=== PATIENT | female | born 1980 | race Caucasian/White ===

== ENCOUNTER 2018-01-12 02:58 | Emergency (ER) | payer OTHER ==
--- NOTE | 2018-01-12 03:28 | ERPHSYRPT ---
- History of Present Illness Time Seen by Provider: 01/12/18 03:27 Historian: patient Exam Limitations: no limitations Patient Subjective Stated Complaint: Upper abdominal pain that began in [place]. Triage Nursing Assessment: Pt presents to the ED with complaints of upper abdominal pain. Pt states she had endoscopy on and states pain has been constant since procedure. No distress noted, skin PWD. Hx of gastroporisis and pyloric stenosis. Physician History: 37-year-old female came to the emergency room with complaining of epigastric abdominal pain. Vision has a long history of gastroesophageal reflux disease as well as gastroparesis and pyloric stenosis for which patient underwent esophageal duodenoscopy on , 2 days ago. Since then. Patient has off and on epigastric abdominal pain. Patient denies any fever, chills, nausea, vomiting. She denies any abdominal distention. Patient has a regular bowel movement. Timing/Duration: day(s) (2 days ago) Quality: burning Abdominal Pain Onset Location: epigastric Pain Radiation: no radiation Severity of Pain-Max: mild Severity of Pain-Current: mild Modifying Factors: Improves With: nothing Associated Symptoms: denies symptoms Allergies/Adverse Reactions: codeine Allergy (Intermediate, Verified 01/12/18 03:14) Hives meperidine [From Demerol] Allergy (Intermediate, Verified 01/12/18 03:14) morphine Allergy (Intermediate, Verified 01/12/18 03:14) Hives Home Medications: Hydrocodone/Acetaminophen [[place] 5-325 Tablet] 1 tab PO Q6H PRN 01/12/18 [ History] Linaclotide [Linzess] 290 mcg PO DAILY 01/12/18 [History] Lipase/Protease/Amylase [Francesca Mcmillan 24,000 Units Capsule] 2 cap PO TID 01/12/18 [ History] Ondansetron HCl [Ondansetron HCl] 4 mg PO Q8H PRN 01/12/18 [History] PANTOPRAZOLE 40 mg Tablet [Protonix 40MG Tablet] 40 mg PO QAM 01/12/18 [ History] Ranitidine HCl [Zantac] 150 mg PO BID 01/12/18 [History] Sucralfate 1 gm [Carafate 1 GM] 1 g PO QID 01/12/18 [History] Hx Tetanus, Diphtheria Vaccination/Date Given: Yes Hx Influenza Vaccination/Date Given: Yes Hx Pneumococcal Vaccination/Date Given: No Immunizations Up to Date: Yes - Review of Systems Constitutional: No Fever, No Chills Eyes: No Symptoms Ears, Nose, & Throat: No Symptoms Respiratory: No Cough, No Dyspnea Cardiac: No Chest Pain, No Edema, No Syncope Abdominal/Gastrointestinal: Abdominal Pain, No Nausea, No Vomiting, No Diarrhea Genitourinary Symptoms: No Dysuria Musculoskeletal: No Back Pain, No Neck Pain Skin: No Rash Neurological: No Dizziness, No Focal Weakness, No Sensory Changes Psychological: No Symptoms Endocrine: No Symptoms All Other Systems: Reviewed and Negative - Past Medical History Pertinent Past Medical History: Yes Neurological History: No Pertinent History ENT History: No Pertinent History Endocrine Medical History: No Pertinent History - Past Surgical History Past Surgical History: Yes Neuro Surgical History: No Pertinent History Cardiac: No Pertinent History Respiratory: No Pertinent History Gastrointestinal: Appendectomy Genitourinary: No Pertinent History Musculoskeletal: No Pertinent History Female Surgical History: Hysterectomy Other Surgical History: Gastroporisis, pyloric stenosis. - Social History Smoking Status: Current every day smoker How long have you smoked: 20years Exposure to second hand smoke: Yes Drug Use: none Patient Lives Alone: No - Female History Hx Now: No - Nursing Vital Signs Nursing Vital Signs: Initial Vital Signs Temperature 98.0 F 01/12/18 03:06 Pulse Rate 66 01/12/18 03:06 Respiratory Rate 18 01/12/18 03:06 Blood Pressure 136/66 01/12/18 03:06 O2 Sat by Pulse Oximetry 98 01/12/18 03:06 Pain Scale Pain Intensity 10 - Physical Exam General Appearance: no apparent distress, alert Eye Exam: PERRL/EOMI, eyes nml inspection Ears, Nose, Throat Exam: normal ENT inspection, pharynx normal, moist mucous membranes Neck Exam: normal inspection, non-tender, supple, full range of motion Respiratory Exam: normal breath sounds, lungs clear, No respiratory distress Cardiovascular Exam: regular rate/rhythm, normal heart sounds Gastrointestinal/Abdomen Exam: soft, No tenderness, No mass Back Exam: normal inspection, normal range of motion, No CVA tenderness, No vertebral tenderness Extremity Exam: normal inspection, normal range of motion, pelvis stable Neurologic Exam: alert, oriented x 3, cooperative, normal mood/affect, nml cerebellar function, sensation nml, No motor deficits Skin Exam: normal color, warm, dry SpO2: 98 Oxygen Delivery: Room Air - Course Nursing assessment & vital signs reviewed: Yes Ordered Tests: Medication Summary Discontinued Medications Generic Name Dose Route Start Last Admin Trade Name Nick PRN Reason Stop Dose Admin Famotidine 20 mg 01/12/18 03:34 01/12/18 03:39 Pepcid 20 Mg Vial IV 01/12/18 03:35 20 mg STAT ONE Administration Famotidine Confirm 01/12/18 03:37 Pepcid 20 Mg Vial Administered 01/12/18 03:38 Dose 20 mg IV .STK-MED ONE Sodium Chloride 500 mls @ 999 mls/hr 01/12/18 03:34 01/12/18 03:39 Sodium Chloride 0.9% 1000 Ml IV 01/12/18 04:04 999 mls/hr .Q31M STA Administration Sodium Chloride Confirm 01/12/18 03:37 Sodium Chloride 0.9% 1000 Ml Administered 01/12/18 03:38 Dose 1,000 mls @ ud .ROUTE .STK-MED ONE Metoclopramide HCl 10 mg 01/12/18 03:34 01/12/18 03:39 Reglan 10 Mg/2 Ml IV 01/12/18 03:35 10 mg STAT ONE Administration Metoclopramide HCl Confirm 01/12/18 03:36 Reglan 10 Mg/2 Ml Administered 01/12/18 03:37 Dose 10 mg .ROUTE .STK-MED ONE - Progress Progress: improved Counseled pt/family regarding: diagnosis, need for follow-up - Departure Time of Disposition: 04:12 Departure Disposition: Home Clinical Impression: Gastroparalysis Gastro-esophageal reflux Qualifiers: Esophagitis presence: without esophagitis Qualified Code(s): K21.9 - Gastro- esophageal reflux disease without esophagitis Condition: Stable Critical Care Time: No Referrals: PENNY LYNN MD [Primary Care Provider] - Instructions: Acute Abdomen (Belly Pain) Additional Instructions: ABDOMINAL PAIN 1. There are several different causes for abdominal pain, some of which may not be able to be identified on initial examination. 2. The important thing to remember is that bodily functions can change in a short period of time. If you notice any of the following symptoms, return to the emergency department or consult your doctor immediately: A. Worsening pain or no improvement in the next 12 hours. B. Increasing, severe abdominal pain C. Blood in stool D. Black stools E. Persistent vomiting F. Fever or chills or other symptoms MARYBETH DELGADO was seen on 01/12/18 n the Emergency Room. At that time you were treated for an emergent condition, during your visit Laboratory, Radiology and/ or other procedures may have been ordered. It is very important that you follow- up with your Primary Care Physician PENNY LYNN V within the next 24-48 hours to review your Emergency Room visit and the final results of testing that was ordered. Some test results such as Urine Cultures, Blood Cultures, and other cultures if ordered will not be finalized for 24-48 hours. If you do not have a Primary Care Provider please call the medical records department at [phone] to obtain a copy of your results or you may sign into our patient portal to obtain these results by visiting us @ [email or web address] and completing the following steps: 1. Click on the Patient Portal link 2. Click the Patient Self Enrollment Link to complete the enrollment form and entering your 3. Once the enrollment form is completed you will receive an email with a temporary ID and password at the email address you provided. 4. Next choose a user name and password. Your user name must be at least 4 characters long and your password must be at least 4 characters long. 5. Choose a security question from the list and provide your answer to the question. If you already have signed into the Health Portal you may access your Health Care Information 13/05 by the following steps: 1. Login to our website @ [email or web address] 2. Enter your original user name and password. FAQS The [facility] Health Portal is an online tool that contains your Lab Results, Radiology Reports, Visit History, Discharge Instructions and Health Summary Lab and Radiology Results will not be available for 72 hours on the portal. The Portal is a secure site, passwords are encryted and URLs are re-written so they cannot be copied and pasted. You and authorized family members are the only ones who can access your Portal. Also there is a timeout feature that protects your information if you leave the Portal page open. If you have technical difficulty please use the Contact Us link on the page this will allow you to submit any questions you have regarding the Portal or you may contact the Medical Record Department at [phone]. Prescriptions: Famotidine 20 mg [Pepcid 20 MG] 20 mg PO BID #60 tablet Metoclopramide HCl [Reglan] 5 mg PO AC #30 tablet
[2018-01-12] MEDS ORDERED: Reglan 10 MG/2 ML IV ONE (03:34)
[2018-01-12] MEDS ORDERED: Pepcid 20 MG VIAL IV ONE ×2 (03:34→03:37)
[2018-01-12] MEDS ORDERED: Reglan 10 MG/2 ML ONE (03:36)
[2018-01-12] MEDS ORDERED: Sodium Chloride 0.9% 1000 ML 1,000 ML ONE (03:37)
[2018-01-12 04:27] VITALS: BP 109/63; PULSE 68; O2SAT 100
== END 2018-01-12 04:28 | disposition home or self-care (01) ==
LOC: ED 02:58
DX: K31.84 Gastroparesis (principal); K21.9 Gastro-esophageal reflux disease without esophagitis; Z79.899 Other long term (current) drug therapy
CPT/HCPCS: 36000; 96360; 96374; 96375; 99284

== ENCOUNTER 2018-08-23 15:56 | Emergency (ER) | payer OTHER ==
--- NOTE | 2018-08-23 16:44 | ERPHSYRPT ---
- History of Present Illness Time Seen by Provider: 08/23/18 16:30 Historian: patient Exam Limitations: no limitations Patient Subjective Stated Complaint: Pt states "I have had this for about a week now. I am dizzy, my chest hurt, I am having palpitations. I saw Dr. Azul yesterday and he said I had an abnormal EKG and that he needed to do more tests. I have gastroporesis and he also thinks that might have worked its way up." Triage Nursing Assessment: Pt alert and oriented X 3, skin pwd. Pt ambulates with an upright steady gait, able to speak in clear full sentences. PT in no apparent respiratory distress. Pt has pain pump implanted in left abdomen. Physician History: The patient is a 38-year-old female with a friend with multiple complaints. She has chronic abdominal pain. She has chronic nausea and vomiting. She has chronic pancreatitis. One week ago she became dizzy. 2 days ago she had intermittent palpitations that made her feel like her heart was racing and jumping out of her chest. She saw her stable manager yesterday, Dr. Mcnulty. Dr. Mcnulty told her that she had an abnormal EKG and wanted to do more studies on her. She had numerous abdominal surgeries last year. She has a past medical history of pancreatitis, gastroparesis, abdominal Dilaudid pain pump, chronic vomiting, cholecystectomy, appendectomy, hysterectomy. Timing/Duration: day(s) (2) Activities at Onset: none Quality: aching Location: substernal Chest Pain Radiation: no radiation Severity of Pain-Max: moderate Severity of Pain-Current: moderate Modifying Factors: Improves With: nothing Associated Symptoms: nausea, vomiting, abdominal pain, dizziness Prior Chest Pain/Cardiac Workup: no prior chest pain, recently seen/treated Nitro Today/Relief: no nitro taken today Aspirin Treatment Today: no aspirin today Allergies/Adverse Reactions: codeine Allergy (Intermediate, Verified 01/12/18 03:14) Hives meperidine [From Demerol] Allergy (Intermediate, Verified 01/12/18 03:14) morphine Allergy (Intermediate, Verified 01/12/18 03:14) Hives Home Medications: Lipase/Protease/Amylase [Francesca Mcmillan 24,000 Units Capsule] 1 cap PO DAILY 08/23/18 [History] Paroxetine HCl 30 mg PO DAILY 08/23/18 [History] Ranitidine HCl [Zantac] 150 mg PO DAILY 08/23/18 [History] Hx Tetanus, Diphtheria Vaccination/Date Given: Yes Hx Influenza Vaccination/Date Given: No Hx Pneumococcal Vaccination/Date Given: No Immunizations Up to Date: Yes - Review of Systems Constitutional: No Fever, No Chills Eyes: No Symptoms Ears, Nose, & Throat: No Symptoms Respiratory: No Cough, No Dyspnea Cardiac: Chest Pain, Palpitations, No Edema, No Syncope Abdominal/Gastrointestinal: Abdominal Pain, Nausea, Vomiting, No Diarrhea Genitourinary Symptoms: Other (anuria), No Dysuria Musculoskeletal: No Back Pain, No Neck Pain Skin: No Rash Neurological: No Dizziness, No Focal Weakness, No Sensory Changes Psychological: No Symptoms Endocrine: No Symptoms Hematologic/Lymphatic: No Symptoms Immunological/Allergic: No Symptoms All Other Systems: Reviewed and Negative - Past Medical History Pertinent Past Medical History: Yes Neurological History: No Pertinent History ENT History: No Pertinent History Endocrine Medical History: No Pertinent History Other Medical History: stress test. CAD - Past Surgical History Past Surgical History: Yes Neuro Surgical History: No Pertinent History Cardiac: No Pertinent History Respiratory: No Pertinent History Gastrointestinal: Appendectomy Genitourinary: No Pertinent History Musculoskeletal: No Pertinent History Female Surgical History: Hysterectomy Other Surgical History: Gastroporisis, pyloric stenosis. pain pump implant. esophageal stretch - Social History Smoking Status: Current every day smoker How long have you smoked: years Exposure to second hand smoke: Yes Drug Use: none Patient Lives Alone: No - Female History Hx Last Menstrual Period: complete hysterectomy Hx Now: No - Nursing Vital Signs Nursing Vital Signs: Initial Vital Signs Temperature 98.5 F 08/23/18 16:03 Pulse Rate 68 08/23/18 16:03 Respiratory Rate 18 08/23/18 16:03 Blood Pressure 124/61 08/23/18 16:03 O2 Sat by Pulse Oximetry 100 08/23/18 16:03 Pain Scale Pain Intensity 8 - Physical Exam General Appearance: mild distress Eye Exam: PERRL/EOMI, eyes nml inspection Ears, Nose, Throat Exam: normal ENT inspection, moist mucous membranes Neck Exam: normal inspection, non-tender, supple, full range of motion Respiratory Exam: normal breath sounds, lungs clear, No respiratory distress Cardiovascular Exam: regular rate/rhythm, normal heart sounds Gastrointestinal/Abdomen Exam: tenderness Pelvic Exam: not done Rectal Exam: not done Back Exam: normal inspection, No CVA tenderness, No vertebral tenderness Extremity Exam: normal inspection, normal range of motion Neurologic Exam: alert, oriented x 3, cooperative, normal mood/affect, sensation nml, No motor deficits Skin Exam: normal color, warm, dry SpO2 Interpretation: normal SpO2: 100 Oxygen Delivery: Room Air - Course EKG Interpreted by Me: RATE, Sinus Rhythm, NORMAL AXIS, NORMAL INTERVALS, NORMAL QRS, Other (inverted T waves in V1, V2, V3.) - Radiology Exams Chest X-ray Interpretation: Interpreted by me, Negative (comp 2V chest 01/14/18.) Ordered Tests: Active Orders 24 hr Category Date Time Status Tube Mounter STAT Care 08/23/18 16:53 Active EKG-ER Only STAT Care 08/23/18 16:52 Active IV Insertion STAT Care 08/23/18 16:52 Active Pulse Oximetry (ED) STAT Care 08/23/18 16:52 Active CHEST 2 VIEWS (PA AND LAT) Stat Exams 08/23/18 16:52 Completed AMYLASE Stat Lab 08/23/18 17:00 Completed CBC W DIFF Stat Lab 08/23/18 17:00 Completed CMP Stat Lab 08/23/18 17:00 Completed D-DIMER QUANTITATION Stat Lab 08/23/18 17:00 Completed LIPASE Stat Lab 08/23/18 17:00 Completed Lactic Acid Stat Lab 08/23/18 16:55 Completed TROPONIN Q3H Lab 08/23/18 17:00 Completed Medication Summary Discontinued Medications Generic Name Dose Route Start Last Admin Trade Name Freq PRN Reason Stop Dose Admin Aspirin 324 mg 08/23/18 16:52 08/23/18 17:04 Baby Aspirin 81 Mg Chew PO 08/23/18 16:53 324 mg STAT ONE Administration Aspirin Confirm 08/23/18 17:01 Baby Aspirin 81 Mg Chew Administered 08/23/18 17:02 Dose 324 mg .ROUTE .STK-MED ONE Sodium Chloride 1,000 mls @ 999 mls/hr 08/23/18 16:52 08/23/18 18:24 Sodium Chloride 0.9% 1000 Ml IV 08/23/18 17:52 Infused .Q1H1M STA Infusion Sodium Chloride Confirm 08/23/18 17:01 Sodium Chloride 0.9% 1000 Ml Administered 08/23/18 17:02 Dose 1,000 mls @ ud .ROUTE .STK-MED ONE Promethazine HCl 25 mg 08/23/18 16:52 08/23/18 17:04 Phenergan 25 Mg Inj IV 08/23/18 16:53 25 mg STAT ONE Administration Promethazine HCl Confirm 08/23/18 17:01 Phenergan 25 Mg Inj Administered 08/23/18 17:02 Dose 25 mg .ROUTE .STK-MED ONE Lab/Rad Data: Laboratory Result Diagrams 08/23/18 17:00 08/23/18 17:00 Laboratory Results 08/23/18 08/23/18 08/23/18 Range/Units 17:00 17:00 17:00 WBC (4.0-10.5) K/mm3 RBC (4.1-5.4) M/mm3 Hgb (12.0-16.0) gm/dl Hct (35-47) % MCV (78-100) fl MCH (26-32) pg MCHC (32-36) g/dl RDW (11.5-14.0) % Plt Count (150-450) K/mm3 MPV (6-9.5) fl Gran % (36.0-66.0) % Eos # (Auto) (0-0.5) Absolute Lymphs (auto) (1.0-4.6) Absolute Monos (auto) (0.0-1.3) Lymphocytes % (24.0-44.0) % Monocytes % (0.0-12.0) % Eosinophils % (0.00-5.0) % Basophils % (0.0-0.4) % Absolute Granulocytes (1.4-6.9) Basophils # (0-0.4) D-Dimer 479 (215-500) ng/mL Sodium (137-145) mmol/L Potassium (3.5-5.1) mmol/L Chloride (98-107) mmol/L Carbon Dioxide (22-30) mmol/L Anion Gap (5-15) MEQ/L BUN (7-17) mg/dL Creatinine (0.52-1.04) mg/dL Estimated GFR ML/MIN Glucose (74-106) mg/dL Lactic Acid (0.4-2.0) Calcium (8.4-10.2) mg/dL Total Bilirubin (0.2-1.3) mg/dL AST (14-36) U/L ALT (0-35) U/L Alkaline Phosphatase (38-126) U/L Troponin I < 0.012 (0.000-0.034) ng/mL Serum Total Protein (6.3-8.2) g/dL Albumin (3.5-5.0) g/dL Amylase 57 (30-110) U/L Lipase 110 (23-300) U/L 08/23/18 08/23/18 08/23/18 Range/Units 17:00 17:00 16:55 WBC 7.1 (4.0-10.5) K/mm3 RBC 4.60 (4.1-5.4) M/mm3 Hgb 14.5 (12.0-16.0) gm/dl Hct 43.4 (35-47) % MCV 94.3 (78-100) fl MCH 31.5 (26-32) pg MCHC 33.4 (32-36) g/dl RDW 12.2 (11.5-14.0) % Plt Count 212 (150-450) K/mm3 MPV 10.6 H (6-9.5) fl Gran % 49.3 (36.0-66.0) % Eos # (Auto) 0.13 (0-0.5) Absolute Lymphs (auto) 2.77 (1.0-4.6) Absolute Monos (auto) 0.69 (0.0-1.3) Lymphocytes % 38.8 (24.0-44.0) % Monocytes % 9.7 (0.0-12.0) % Eosinophils % 1.8 (0.00-5.0) % Basophils % 0.4 (0.0-0.4) % Absolute Granulocytes 3.51 (1.4-6.9) Basophils # 0.03 (0-0.4) D-Dimer (215-500) ng/mL Sodium 139 (137-145) mmol/L Potassium 3.9 (3.5-5.1) mmol/L Chloride 105 (98-107) mmol/L Carbon Dioxide 27 (22-30) mmol/L Anion Gap 11.4 (5-15) MEQ/L BUN 16 (7-17) mg/dL Creatinine 0.84 (0.52-1.04) mg/dL Estimated GFR > 60.0 ML/MIN Glucose 89 (74-106) mg/dL Lactic Acid 1.5 (0.4-2.0) Calcium 9.5 (8.4-10.2) mg/dL Total Bilirubin 0.30 (0.2-1.3) mg/dL AST 43 H (14-36) U/L ALT 36 H (0-35) U/L Alkaline Phosphatase 80 (38-126) U/L Troponin I (0.000-0.034) ng/mL Serum Total Protein 7.4 (6.3-8.2) g/dL Albumin 4.7 (3.5-5.0) g/dL Amylase (30-110) U/L Lipase (23-300) U/L - Progress Progress: improved Air Movement: good Blood Culture(s) Obtained: No Antibiotics given: No Counseled pt/family regarding: lab results, diagnosis, rad results - Departure Time of Disposition: 18:32 Departure Disposition: Transfer (transfer to [facility] per hospitalist Dr Page and stable manager Dr Enriquez) Clinical Impression: Chest pain, Vomiting Condition: Stable Critical Care Time: No Referrals: PENNY LYNN MD [Primary Care Provider] -
[2018-08-23] MEDS ORDERED: BABY ASPIRIN 81 MG CHEW PO ONE (16:52)
[2018-08-23] MEDS ORDERED: Phenergan 25 MG INJ IV ONE (16:52)
[2018-08-23] MEDS ORDERED: Sodium Chloride 0.9% 1000 ML 1,000 ML IV STA (16:52)
[2018-08-23] MEDS ORDERED: Phenergan 25 MG INJ ONE (17:01)
[2018-08-23] MEDS ORDERED: BABY ASPIRIN 81 MG CHEW ONE (17:01)
[2018-08-23] MEDS ORDERED: Sodium Chloride 0.9% 1000 ML 1,000 ML ONE (17:01)
[2018-08-23 17:03] LABS: BASOPHIL % 0.4 % (0.0-0.4); Basophil (Absolute #) 0.03 (0-0.4); Eosinophil % 1.8 % (0.00-5.0); Eosinophil (Absolute #) 0.13 (0-0.5); Granulocyte Absolute (ANC) 3.51 (1.4-6.9); Granulocytes % 49.3 % (36.0-66.0); Hematocrit 43.4 % (35-47); Hemoglobin 14.5 gm/dl (12.0-16.0); Lymphocyte (Absolute #) 2.77 (1.0-4.6); Lymphocytes % 38.8 % (24.0-44.0); Mean Cell Volume 94.3 fl (78-100); Mean Corpuscular Hemoglobin 31.5 pg (26-32); Mean Corpuscular Hgb Concent. 33.4 g/dl (32-36); Mean Platelet Volume 10.6 fl (6-9.5); Monocyte (Absolute #) 0.69 (0.0-1.3); Monocytes % 9.7 % (0.0-12.0); Platelet Count 212 K/mm3 (150-450); Red Cell Distribution Width 12.2 % (11.5-14.0); White Blood Count 7.1 K/mm3 (4.0-10.5)
[2018-08-23 17:09] LABS: ALBUMIN 4.7 g/dL (3.5-5.0); ALKALINE PHOSPHATASE 80 U/L (38-126); AMYLASE 57 U/L (30-110); ANION GAP 11.4 MEQ/L (5-15); BLOOD UREA NITROGEN 16 mg/dL (7-17); CHLORIDE 105 mmol/L (98-107); Calcium 9.5 mg/dL (8.4-10.2); Carbon Dioxide 27 mmol/L (22-30); Creatinine 1 0.84 mg/dL (0.52-1.04); Glucose 89 mg/dL (74-106); LIPASE 110 U/L (23-300); Potassium 3.9 mmol/L (3.5-5.1); SGOT/AST 43 U/L (14-36); SGPT/ALT 36 U/L (0-35); SODIUM 139 mmol/L (137-145); Total Protein 7.4 g/dL (6.3-8.2)
--- NOTE | 2018-08-23 18:17 | XRAY ---
Indication: Chest pain 2 days. Comparison: January 14, 2018. PA/lateral chest again demonstrates normal heart, lungs, and bony thorax.
[2018-08-23 19:55] VITALS: BP 100/69; PULSE 64; O2SAT 98
== END 2018-08-23 19:58 | disposition short-term general hospital (02) ==
LOC: ED 15:56
DX: R07.9 Chest pain, unspecified (principal); R11.2 Nausea with vomiting, unspecified; R10.9 Unspecified abdominal pain; R00.2 Palpitations; R42 Dizziness and giddiness; Z79.899 Other long term (current) drug therapy
CPT/HCPCS: 36000; 36415; 71046; 80053; 82150; 83605; 83690; 84484; 85025; 85379; 93005; 93041; 96360; 96374; 99285; J2550; A9270-GY

== ENCOUNTER 2018-11-15 17:52 | Emergency (ER) | payer OTHER ==
--- NOTE | 2018-11-15 18:04 | ERPHSYRPT ---
- History of Present Illness Time Seen by Provider: 11/15/18 18:03 Source: patient, family Exam Limitations: no limitations Physician History: 38 y/o white female s/p recent bladder sling procedure 11/06/18, presents with post procedural urinary retention, suprapubic and flank pain after removal of pal catheter on 11/10/18. pt not urinating much(dribbling) in last 2 days. pt was sweeping and mopping floor 2 days ago when pt noticed mild vaginal bleeding and some pulling sensation then her ability to urinate decreased quite a bit. Timing/Duration: day(s) (2) Activites at Onset: none Quality: fullness, pressure Onset Location: suprapubic, generalized flank Severity of Pain-Max: mild Severity of Pain-Current: mild Prior abdominal problems: other (recent bladder sling procedure) Sexual intercourse history: non-contributory Modifying Factors: Improves With: nothing Associated Symptoms: other (urinary retention) Allergies/Adverse Reactions: codeine Allergy (Intermediate, Verified 11/15/18 18:21) Hives meperidine [From Demerol] Allergy (Intermediate, Verified 11/15/18 18:21) morphine Allergy (Intermediate, Verified 11/15/18 18:21) Hives Home Medications: Lipase/Protease/Amylase [Creon Dr 24,000 Units Capsule] 1 cap PO DAILY 08/23/18 [History] Paroxetine HCl 30 mg PO DAILY 08/23/18 [History] Ranitidine HCl [Zantac] 150 mg PO DAILY 08/23/18 [History] Hx Tetanus, Diphtheria Vaccination/Date Given: Yes Hx Influenza Vaccination/Date Given: No Hx Pneumococcal Vaccination/Date Given: No - Review of Systems Constitutional: No Symptoms Eyes: No Symptoms Ears, Nose, & Throat: No Symptoms Respiratory: No Symptoms Cardiac: No Symptoms Abdominal/Gastrointestinal: Abdominal Pain (mild suprapubic) Genitourinary Symptoms: Urinary Retention Musculoskeletal: No Symptoms Skin: No Symptoms Neurological: No Symptoms Psychological: No Symptoms Endocrine: No Symptoms Hematologic/Lymphatic: No Symptoms Immunological/Allergic: No Symptoms All Other Systems: Reviewed and Negative - Past Medical History Pertinent Past Medical History: Yes Neurological History: No Pertinent History ENT History: No Pertinent History Cardiac History: No Pertinent History Respiratory History: No Pertinent History Endocrine Medical History: No Pertinent History Musculoskeletal History: No Pertinent History GI Medical History: No Pertinent History History: Other (poor bladder control) Psycho-Social History: No Pertinent History Other Medical History: stress test. CAD - Past Surgical History Past Surgical History: Yes Neuro Surgical History: No Pertinent History Cardiac: No Pertinent History Respiratory: No Pertinent History Gastrointestinal: Appendectomy Genitourinary: Other (bladder sling procedure 11/06/18) Musculoskeletal: No Pertinent History Female Surgical History: Hysterectomy Other Surgical History: Gastroporisis, pyloric stenosis. pain pump implant. esophageal stretch - Social History Smoking Status: Current every day smoker How long have you smoked: years Exposure to second hand smoke: Yes Drug Use: none Patient Lives Alone: No - Nursing Vital Signs Nursing Vital Signs: Initial Vital Signs Pulse Rate 70 11/15/18 18:10 Respiratory Rate 18 11/15/18 18:10 Blood Pressure 140/78 11/15/18 18:10 O2 Sat by Pulse Oximetry 99 11/15/18 18:10 Pain Scale Pain Intensity 8 - Physical Exam General Appearance: no apparent distress, alert, anxiety Eye Exam: PERRL/EOMI Ears, Nose, Throat Exam: normal ENT inspection, moist mucous membranes Neck Exam: normal inspection, non-tender, supple, full range of motion Respiratory Exam: normal breath sounds, lungs clear, airway intact, No chest tenderness, No respiratory distress Cardiovascular Exam: regular rate/rhythm, normal heart sounds, normal peripheral pulses Gastrointestinal/Abdomen Exam: soft, tenderness (mild suprapubic) Pelvic Exam: not done Rectal Exam: not done Back Exam: normal inspection, normal range of motion, CVA tenderness (mild bilat ) Extremity Exam: normal inspection Neurologic Exam: alert, oriented x 3, cooperative, 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 as tested Skin Exam: normal color, warm, dry Lymphatic Exam: No adenopathy SpO2 Interpretation: normal O2 Delivery: Room Air - Course Nursing assessment & vital signs reviewed: Yes Ordered Tests: Active Orders 24 hr Category Date Time Status Pal [Catheter-Bowlegs Pal] STAT Care 11/15/18 18:14 Active CULTURE,URINE Stat Lab 11/15/18 18:16 Received UA W/RFX UR CULTURE Stat Lab 11/15/18 18:16 Completed Medication Summary Discontinued Medications Generic Name Dose Route Start Last Admin Trade Name Freq PRN Reason Stop Dose Admin Ciprofloxacin 500 mg 11/15/18 18:53 11/15/18 19:07 Cipro 500 Mg PO 11/15/18 18:54 500 mg ONCE ONE Administration Lab/Rad Data: Laboratory Results 11/15/18 Range/Units 18:16 Urine Color YELLOW (YELLOW) Urine Appearance SLIGHTLY CLOUDY (CLEAR) Urine pH 6.0 (5-6) Ur Specific [place] 1.019 (1.005-1.025) Urine Protein NEGATIVE (Negative) Urine Ketones NEGATIVE (NEGATIVE) Urine Blood LARGE (0-5) Dylan/ul Urine Nitrite NEGATIVE (NEGATIVE) Urine Bilirubin NEGATIVE (NEGATIVE) Urine Urobilinogen NEGATIVE (0-1) mg/dL Ur Leukocyte Esterase MODERATE (NEGATIVE) Urine WBC (Auto) 26-50 (0-5) /HPF Urine RBC (Auto) 6-10 (0-2) /HPF U Epithel Cells (Auto) FEW (FEW) /HPF Urine Bacteria (Auto) RARE (NEGATIVE) /HPF Urine Mucus (Auto) SLIGHT (NEGATIVE) /HPF Urine Culture Reflexed YES (NO) Urine Glucose NEGATIVE (NEGATIVE) mg/dL - Progress Progress: improved Air Movement: good Blood Culture(s) Obtained: No Antibiotics given: Yes Counseled pt/family regarding: lab results, diagnosis, need for follow-up - Departure Time of Disposition: 19:11 Departure Disposition: Home Clinical Impression: Urinary retention, UTI (urinary tract infection) Condition: Stable Critical Care Time: No Additional Instructions: drink plenty of fluids. use tylenol and ibuprofen for pain. follow up with your urologist on saturday11/17/18
[2018-11-15 18:43] LABS: Appearance SLIGHTLY CLOUDY (CLEAR); Bacteria RARE /HPF (NEGATIVE); Bilirubin NEGATIVE (NEGATIVE); Blood LARGE Ery/ul (0-5); Epithelial Cells FEW /HPF (FEW); Glucose NEGATIVE (NEGATIVE); Ketones NEGATIVE (NEGATIVE); Leukocyte Esterase MODERATE (NEGATIVE); Mucus SLIGHT /HPF (NEGATIVE); Nitrite NEGATIVE (NEGATIVE); Protein,Urine Dip NEGATIVE (Negative); Specific Gravity 1.019 (1.005-1.025); Urobilinogen NEGATIVE mg/dL (0-1); WBC 26-50 /HPF (0-5)
[2018-11-15] MEDS ORDERED: Cipro 500 MG PO ONE (18:53)
[2018-11-15] MEDS ORDERED: Cipro 500 MG ONE (19:06)
[2018-11-15 19:48] VITALS: BP 110/74; PULSE 68; O2SAT 98
== END 2018-11-15 19:48 | disposition home or self-care (01) ==
LOC: ED 17:52
DX: R33.9 Retention of urine, unspecified (principal); N39.0 Urinary tract infection, site not specified; I25.10 Atherosclerotic heart disease of native coronary artery without angina pectoris; Z98.890 Other specified postprocedural states
CPT/HCPCS: 51702; 81001; 87086; 99284; A9270-GY

== ENCOUNTER 2019-01-09 20:57 | Emergency (ER) | payer OTHER ==
[2019-01-09] MEDS ORDERED: Sodium Chloride 0.9% 1000 ML 1,000 ML IV STA (21:29)
[2019-01-09] MEDS ORDERED: SUBLIMAZE 100 MCG/2 ML IV ONE (21:29)
--- NOTE | 2019-01-09 21:29 | ERPHSYRPT ---
- History of Present Illness Time Seen by Provider: 01/09/19 21:27 Historian: patient Exam Limitations: no limitations Patient Subjective Stated Complaint: pt reports abd pain x one week with vomiting, worse after eating. reports vomiting all day today. pt reports history of gastroparesis and chronic pancreatitis. pt reports that her indwelling pain pump is "not cutting it tonight. Triage Nursing Assessment: pt is aox3, pupils perrl, afebrile, resps easy and non labored, radial pulses strong and equal bilat, abd is soft, tender to the left upper quadrant, indwelling pain pump present to the left adomen. bowel sounds are present and normoactive x4, pt skin pale warm dry. cap refill < 3 seconds. Physician History: pt reports abd pain x one week with vomiting, worse after eating. reports vomiting all day today. pt reports history of gastroparesis and chronic pancreatitis. pt reports that her indwelling pain pump is "not cutting it tonight. Timing/Duration: week(s) Quality: cramping Pain Radiation: LLQ, flank Severity of Pain-Max: moderate Severity of Pain-Current: moderate Allergies/Adverse Reactions: codeine Allergy (Intermediate, Verified 01/09/19 21:19) Hives meperidine [From Demerol] Allergy (Intermediate, Verified 01/09/19 21:19) morphine Allergy (Intermediate, Verified 01/09/19 21:19) Hives Home Medications: Lipase/Protease/Amylase [Creon Dr 24,000 Units Capsule] 1 cap PO DAILY 08/23/18 [History] Paroxetine HCl 30 mg PO DAILY 08/23/18 [History] Ranitidine HCl [Zantac] 150 mg PO DAILY 08/23/18 [History] Hx Tetanus, Diphtheria Vaccination/Date Given: Yes Hx Influenza Vaccination/Date Given: Yes Hx Pneumococcal Vaccination/Date Given: No Immunizations Up to Date: Yes - Review of Systems Constitutional: No Fever, No Chills Eyes: No Symptoms Ears, Nose, & Throat: No Symptoms Respiratory: No Cough, No Dyspnea Cardiac: No Chest Pain, No Edema, No Syncope Abdominal/Gastrointestinal: Abdominal Pain, No Nausea, No Vomiting, No Diarrhea Genitourinary Symptoms: No Dysuria Musculoskeletal: No Back Pain, No Neck Pain Skin: No Rash Neurological: No Dizziness, No Focal Weakness, No Sensory Changes Psychological: No Symptoms Endocrine: No Symptoms All Other Systems: Reviewed and Negative - Past Medical History Pertinent Past Medical History: Yes Neurological History: No Pertinent History, Migraines ENT History: No Pertinent History Cardiac History: No Pertinent History Respiratory History: No Pertinent History, Bronchitis Endocrine Medical History: No Pertinent History Musculoskeletal History: No Pertinent History GI Medical History: No Pertinent History, GERD, Gallbladder Disease, Irritable Bowel, Pancreatitis, Other History: Other Psycho-Social History: No Pertinent History, Anxiety, Depression Other Medical History: stress test. CAD. pyloric stenosis - Past Surgical History Past Surgical History: Yes Neuro Surgical History: No Pertinent History Cardiac: No Pertinent History Respiratory: No Pertinent History Gastrointestinal: Appendectomy, Cholecystectomy Genitourinary: Other Musculoskeletal: No Pertinent History Female Surgical History: Hysterectomy Other Surgical History: Gastroporisis, pyloric stenosis. pain pump implant. esophageal stretch. pelvic floor/bladder sling - october 2018 - Social History Smoking Status: Former smoker How long have you smoked: years Exposure to second hand smoke: Yes Drug Use: none Patient Lives Alone: No - Female History Hx Last Menstrual Period: hyst age 21 Hx Now: No - Nursing Vital Signs Nursing Vital Signs: Initial Vital Signs Pulse Rate 60 01/09/19 21:55 Respiratory Rate 16 01/09/19 21:55 Blood Pressure 131/82 01/09/19 21:55 O2 Sat by Pulse Oximetry 98 01/09/19 21:55 Pain Scale Pain Intensity 10 - Physical Exam General Appearance: no apparent distress, alert Eye Exam: PERRL/EOMI, eyes nml inspection Ears, Nose, Throat Exam: normal ENT inspection, pharynx normal, moist mucous membranes Neck Exam: normal inspection, non-tender, supple, full range of motion Respiratory Exam: normal breath sounds, lungs clear, No respiratory distress Cardiovascular Exam: regular rate/rhythm, normal heart sounds Gastrointestinal/Abdomen Exam: soft, normal bowel sounds, tenderness, No mass Back Exam: normal inspection, normal range of motion, No CVA tenderness, No vertebral tenderness Extremity Exam: normal inspection, normal range of motion, pelvis stable Neurologic Exam: alert, oriented x 3, cooperative, normal mood/affect, nml cerebellar function, sensation nml, No motor deficits Skin Exam: normal color, warm, dry - Course Nursing assessment & vital signs reviewed: Yes - CT Exams Abdomen/Pelvis CT Interpretation: Discussed w/radiologist missy 10:05 PM 01/09/2019:oelee No comps. L abdomen pain pump produces beam artifact. Stomach moderately distended w/ food. Mild diffuse fecal stasis w/o obstruction. 2 nonobstructing R renal microcalculi. Remaining abd/pel negative.) Ordered Tests: Active Orders 24 hr Category Date Time Status Clean Catch Urine Specimen STAT Care 01/09/19 21:16 Active IV Insertion STAT Care 01/09/19 21:16 Active ABDOMEN AND PELVIS W/0 CONTRAS [CT] Stat Exams 01/09/19 21:30 Taken AMYLASE Stat Lab 01/09/19 21:33 Completed CBC W DIFF Stat Lab 01/09/19 21:33 Completed CMP Stat Lab 01/09/19 21:33 Completed CULTURE,URINE Stat Lab 01/09/19 21:15 Received LIPASE Stat Lab 01/09/19 21:33 Completed Lactic Acid Stat Lab 01/09/19 21:45 Results UA W/RFX UR CULTURE Stat Lab 01/09/19 21:15 Completed Urine Triage Profile Stat Lab 01/09/19 21:15 Completed Medication Summary Generic Name Dose Route Start Last Admin Trade Name Freq PRN Reason Stop Dose Admin Sodium Chloride 1,000 mls @ 999 mls/hr 01/09/19 21:29 01/09/19 21:53 Sodium Chloride 0.9% 1000 Ml IV 01/09/19 22:29 999 mls/hr .Q1H1M STA Administration Ceftriaxone Sodium/Dextrose 1 g in 50 mls @ 100 mls/hr 01/09/19 22:19 Rocephin 1 Gm-D5w 50 Ml Bag IV 01/09/19 22:48 STAT STA Discontinued Medications Generic Name Dose Route Start Last Admin Trade Name Freq PRN Reason Stop Dose Admin Fentanyl Citrate 50 mcg 01/09/19 21:29 01/09/19 21:53 Sublimaze 100 Mcg/2 Ml IV 01/09/19 21:30 50 mcg STAT ONE Administration Fentanyl Citrate Confirm 01/09/19 21:35 Sublimaze 100 Mcg/2 Ml Administered 01/09/19 21:36 Dose 100 mcg .ROUTE .STK-MED ONE Sodium Chloride Confirm 01/09/19 21:35 Sodium Chloride 0.9% 1000 Ml Administered 01/09/19 21:36 Dose 1,000 mls @ ud .ROUTE .STK-MED ONE Ondansetron HCl Confirm 01/09/19 21:58 Zofran 4 Mg/2 Ml Vial Administered 01/09/19 21:59 Dose 4 mg .ROUTE .STK-MED ONE Ondansetron HCl 4 mg 01/09/19 21:58 01/09/19 21:59 Zofran 4 Mg/2 Ml Vial IV 01/09/19 21:59 4 mg STAT ONE Administration Lab/Rad Data: Laboratory Result Diagrams 01/09/19 21:33 01/09/19 21:33 Laboratory Results 01/09/19 01/09/19 01/09/19 Range/Units 21:45 21:33 21:33 WBC 8.1 (4.0-10.5) K/mm3 RBC 4.09 L (4.1-5.4) M/mm3 Hgb 12.7 (12.0-16.0) gm/dl Hct 37.5 (35-47) % MCV 91.7 (78-100) fl MCH 31.0 (26-32) pg MCHC 33.9 (32-36) g/dl RDW 12.1 (11.5-14.0) % Plt Count 248 (150-450) K/mm3 MPV 10.0 H (6-9.5) fl Gran % 47.0 (36.0-66.0) % Eos # (Auto) 0.14 (0-0.5) Absolute Lymphs (auto) 3.41 (1.0-4.6) Absolute Monos (auto) 0.75 (0.0-1.3) Lymphocytes % 41.9 (24.0-44.0) % Monocytes % 9.2 (0.0-12.0) % Eosinophils % 1.7 (0.00-5.0) % Basophils % 0.2 (0.0-0.4) % Absolute Granulocytes 3.82 (1.4-6.9) Basophils # 0.02 (0-0.4) Sodium 142 (137-145) mmol/L Potassium 3.5 (3.5-5.1) mmol/L Chloride 108 H (98-107) mmol/L Carbon Dioxide 22 (22-30) mmol/L Anion Gap 15.4 H (5-15) MEQ/L BUN 19 H (7-17) mg/dL Creatinine 1.07 H (0.52-1.04) mg/dL Estimated GFR > 60.0 ML/MIN Glucose 123 H (74-106) mg/dL Lactic Acid 2.0 (0.4-2.0) Calcium 9.1 (8.4-10.2) mg/dL Total Bilirubin 0.50 (0.2-1.3) mg/dL AST 31 (14-36) U/L ALT 55 H (0-35) U/L Alkaline Phosphatase 86 (38-126) U/L Serum Total Protein 7.2 (6.3-8.2) g/dL Albumin 4.4 (3.5-5.0) g/dL Amylase 53 (30-110) U/L Lipase 115 (23-300) U/L Urine Color (YELLOW) Urine Appearance (CLEAR) Urine pH (5-6) Ur Specific [place] (1.005-1.025) Urine Protein (Negative) Urine Ketones (NEGATIVE) Urine Blood (0-5) Dylan/ul Urine Nitrite (NEGATIVE) Urine Bilirubin (NEGATIVE) Urine Urobilinogen (0-1) mg/dL Ur Leukocyte Esterase (NEGATIVE) Urine WBC (Auto) (0-5) /HPF Urine RBC (Auto) (0-2) /HPF U Epithel Cells (Auto) (FEW) /HPF Urine Bacteria (Auto) (NEGATIVE) /HPF Urine Mucus (Auto) (NEGATIVE) /HPF Urine Culture Reflexed (NO) Urine Glucose (NEGATIVE) mg/dL Urine Opiates Level (NEGATIVE) Ur Methadone (NEGATIVE) Urine Barbiturates (NEGATIVE) Ur Phencyclidine (PCP) (NEGATIVE) Urine Amphetamine (NEGATIVE) U Benzodiazepine Level (NEGATIVE) Urine Cocaine (NEGATIVE) Urine Marijuana (THC) (NEGATIVE) 01/09/19 01/09/19 Range/Units 21:15 21:15 WBC (4.0-10.5) K/mm3 RBC (4.1-5.4) M/mm3 Hgb (12.0-16.0) gm/dl Hct (35-47) % MCV (78-100) fl MCH (26-32) pg MCHC (32-36) g/dl RDW (11.5-14.0) % Plt Count (150-450) K/mm3 MPV (6-9.5) fl Gran % (36.0-66.0) % Eos # (Auto) (0-0.5) Absolute Lymphs (auto) (1.0-4.6) Absolute Monos (auto) (0.0-1.3) Lymphocytes % (24.0-44.0) % Monocytes % (0.0-12.0) % Eosinophils % (0.00-5.0) % Basophils % (0.0-0.4) % Absolute Granulocytes (1.4-6.9) Basophils # (0-0.4) Sodium (137-145) mmol/L Potassium (3.5-5.1) mmol/L Chloride (98-107) mmol/L Carbon Dioxide (22-30) mmol/L Anion Gap (5-15) MEQ/L BUN (7-17) mg/dL Creatinine (0.52-1.04) mg/dL Estimated GFR ML/MIN Glucose (74-106) mg/dL Lactic Acid (0.4-2.0) Calcium (8.4-10.2) mg/dL Total Bilirubin (0.2-1.3) mg/dL AST (14-36) U/L ALT (0-35) U/L Alkaline Phosphatase (38-126) U/L Serum Total Protein (6.3-8.2) g/dL Albumin (3.5-5.0) g/dL Amylase (30-110) U/L Lipase (23-300) U/L Urine Color YELLOW (YELLOW) Urine Appearance CLOUDY (CLEAR) Urine pH 6.0 (5-6) Ur Specific [place] 1.017 (1.005-1.025) Urine Protein NEGATIVE (Negative) Urine Ketones TRACE (NEGATIVE) Urine Blood NEGATIVE (0-5) Dylan/ul Urine Nitrite NEGATIVE (NEGATIVE) Urine Bilirubin NEGATIVE (NEGATIVE) Urine Urobilinogen 2 (0-1) mg/dL Ur Leukocyte Esterase NEGATIVE (NEGATIVE) Urine WBC (Auto) 6-10 (0-5) /HPF Urine RBC (Auto) 3-5 (0-2) /HPF U Epithel Cells (Auto) PACKED (FEW) /HPF Urine Bacteria (Auto) MANY (NEGATIVE) /HPF Urine Mucus (Auto) MODERATE (NEGATIVE) /HPF Urine Culture Reflexed YES (NO) Urine Glucose NEGATIVE (NEGATIVE) mg/dL Urine Opiates Level POSITIVE (NEGATIVE) Ur Methadone NEGATIVE (NEGATIVE) Urine Barbiturates NEGATIVE (NEGATIVE) Ur Phencyclidine (PCP) NEGATIVE (NEGATIVE) Urine Amphetamine NEGATIVE (NEGATIVE) U Benzodiazepine Level NEGATIVE (NEGATIVE) Urine Cocaine NEGATIVE (NEGATIVE) Urine Marijuana (THC) NEGATIVE (NEGATIVE) - Progress Progress: improved Counseled pt/family regarding: lab results, diagnosis, need for follow-up, rad results - Departure Time of Disposition: 22:22 Departure Disposition: Home Clinical Impression: Renal calculus, right, Gastroparalysis UTI (urinary tract infection) Qualifiers: Urinary tract infection type: acute pyelonephritis Qualified Code(s): N10 - Acute pyelonephritis Condition: Stable Critical Care Time: Yes Critical Care Time(excluding separately billable procedures): 30-74 minutes Referrals: PENNY LYNN MD [Primary Care Provider] - Instructions: Urinary Tract Infection, Adult (DC), Acute Abdomen (Belly Pain), Adult (DC) Additional Instructions: ABDOMINAL PAIN 1. There are several different causes for abdominal pain, some of which may not be able to be identified on initial examination. 2. The important thing to remember is that bodily functions can change in a short period of time. If you notice any of the following symptoms, return to the emergency department or consult your doctor immediately: A. Worsening pain or no improvement in the next 12 hours. B. Increasing, severe abdominal pain C. Blood in stool D. Black stools E. Persistent vomiting F. Fever or chills or other symptoms URINARY TRACT INFECTION 1. You will need to drink plenty of fluids in order to keep your urinary system flushed. These fluids should mainly consist of water and juices. 2. Take medications as directed. You need to completely finish any antiobiotic prescription given. 3. Try to avoid coffee, tea, alcohol, and seasoned foods as they may cause bladder irritation. 4. If signs and symptoms persist after 3-4 days, you will need to follow up with your family physician. 5. Female Patients: A. Avoid intercourse for 3-4 days. B. Empty bladder before and after intercourse to reduce risk of re- infection. C. After emptying bladder, wipe from front to back to reduce the risk of re- infection. Prescriptions: Ciprofloxacin [Cipro 500 MG] 500 mg PO BIDAC #20 tablet
[2019-01-09 21:35] LABS: BASOPHIL % 0.2 % (0.0-0.4); Basophil (Absolute #) 0.02 (0-0.4); Eosinophil % 1.7 % (0.00-5.0); Eosinophil (Absolute #) 0.14 (0-0.5); Granulocyte Absolute (ANC) 3.82 (1.4-6.9); Hematocrit 37.5 % (35-47); Hemoglobin 12.7 gm/dl (12.0-16.0); Lymphocyte (Absolute #) 3.41 (1.0-4.6); Lymphocytes % 41.9 % (24.0-44.0); Mean Cell Volume 91.7 fl (78-100); Mean Corpuscular Hgb Concent. 33.9 g/dl (32-36); Monocyte (Absolute #) 0.75 (0.0-1.3); Monocytes % 9.2 % (0.0-12.0); Platelet Count 248 K/mm3 (150-450); Red Blood Count 4.09 M/mm3 (4.1-5.4); Red Cell Distribution Width 12.1 % (11.5-14.0); White Blood Count 8.1 K/mm3 (4.0-10.5)
[2019-01-09] MEDS ORDERED: SUBLIMAZE 100 MCG/2 ML ONE (21:35)
[2019-01-09] MEDS ORDERED: Sodium Chloride 0.9% 1000 ML 1,000 ML ONE (21:35)
[2019-01-09 21:40] LABS: ALBUMIN 4.4 g/dL (3.5-5.0); ALKALINE PHOSPHATASE 86 U/L (38-126); AMYLASE 53 U/L (30-110); ANION GAP 15.4 MEQ/L (5-15); BLOOD UREA NITROGEN 19 mg/dL (7-17); CHLORIDE 108 mmol/L (98-107); Calcium 9.1 mg/dL (8.4-10.2); Carbon Dioxide 22 mmol/L (22-30); Creatinine 1 1.07 mg/dL (0.52-1.04); Glucose 123 mg/dL (74-106); LIPASE 115 U/L (23-300); Potassium 3.5 mmol/L (3.5-5.1); SGOT/AST 31 U/L (14-36); SGPT/ALT 55 U/L (0-35); SODIUM 142 mmol/L (137-145); Total Protein 7.2 g/dL (6.3-8.2)
[2019-01-09 21:58] LABS: Appearance CLOUDY (CLEAR); Bacteria MANY /HPF (NEGATIVE); Bilirubin NEGATIVE (NEGATIVE); Blood NEGATIVE Ery/ul (0-5); Epithelial Cells PACKED /HPF (FEW); Glucose NEGATIVE (NEGATIVE); Ketones TRACE (NEGATIVE); Leukocyte Esterase NEGATIVE (NEGATIVE); Mucus MODERATE /HPF (NEGATIVE); Nitrite NEGATIVE (NEGATIVE); Protein,Urine Dip NEGATIVE (Negative); Specific Gravity 1.017 (1.005-1.025); Urobilinogen 2 mg/dL (0-1)
[2019-01-09] MEDS ORDERED: Zofran 4 MG/2 ML VIAL ONE (21:58)
[2019-01-09] MEDS ORDERED: Zofran 4 MG/2 ML VIAL IV ONE (21:58)
[2019-01-09 22:07] LABS: Amphetamine,Urine NEGATIVE (NEGATIVE); Barbiturate,Urine NEGATIVE (NEGATIVE); Benzodiazepine,Urine NEGATIVE (NEGATIVE); Cocaine,Urine NEGATIVE (NEGATIVE); Methadone,Urine NEGATIVE (NEGATIVE); Opiate,Urine POSITIVE (NEGATIVE); PCP,Urine NEGATIVE (NEGATIVE); THC,Urine NEGATIVE (NEGATIVE)
[2019-01-09] MEDS ORDERED: ROCEPHIN 1 Gm-D5w 50 ml Bag** 1 G/50 ML IVPB IV STA (22:19)
[2019-01-09] MEDS ORDERED: ROCEPHIN 1 Gm-D5w 50 ml Bag** 1 G/50 ML IVPB IV ONE (22:22)
[2019-01-09 23:19] VITALS: BP 101/71; PULSE 60; O2SAT 99
--- NOTE | 2019-01-10 09:15 | XRAY ---
Indication: Left abdomen/flank pain. Multiple contiguous axial images obtained through the abdomen and pelvis without contrast as ordered. Comparison: Outside exam from [facility] dated December 24, 2017. Lung bases are clear. Heart is not enlarged. New left abdomen wall pain pump produces beam artifact. Stomach is distended with food/fluid. Noncontrasted stomach and bowel loops appear nonobstructed. Patient reports appendectomy, cholecystectomy, and hysterectomy. Mild diffuse scattered colonic fecal debris throughout, less than before. No free fluid/air. Stable 2 nonobstructing right renal micro-calculi. Remaining liver, pancreas, spleen, adrenal glands, kidneys, ureters, bladder, and aorta appear unremarkable for noncontrast exam. Osseous structures intact. No ventral or inguinal hernias. Impression: 1. Stable nonobstructing right renal micro-calculi. 2. Incidental mild fecal stasis without obstruction. 3. Remaining CT abdomen/pelvis without contrast exam is negative. CTDI 16.96
== END 2019-01-09 23:48 | disposition home or self-care (01) ==
LOC: ED 20:57
DX: N20.0 Calculus of kidney (principal); K31.84 Gastroparesis; N10 Acute pyelonephritis
CPT/HCPCS: 36000; 36415; 74176; 80053; 80307; 81001; 82150; 83605; 83690; 85025; 87086; 96360; 96365; 96374; 96375; 99284; J0696; J2405; J3010

== ENCOUNTER 2019-02-05 10:04 | Emergency (ER) | payer OTHER ==
[2019-02-05] MEDS ORDERED: Zofran 4 MG/2 ML VIAL IV ONE (11:07)
[2019-02-05] MEDS ORDERED: Hydromorphone 1 mg/ml Ampule IV ONE (11:07)
[2019-02-05] MEDS ORDERED: Sodium Chloride 0.9% 1000 ML 1,000 ML IV STA (11:07)
[2019-02-05] MEDS ORDERED: Hydromorphone 1 mg/ml Ampule ONE (11:14)
[2019-02-05] MEDS ORDERED: Zofran 4 MG/2 ML VIAL ONE (11:14)
[2019-02-05] MEDS ORDERED: Sodium Chloride 0.9% 1000 ML 1,000 ML ONE (11:14)
[2019-02-05 11:25] LABS: BASOPHIL % 0.4 % (0.0-0.4); Basophil (Absolute #) 0.02 (0-0.4); Eosinophil % 1.8 % (0.00-5.0); Eosinophil (Absolute #) 0.08 (0-0.5); Granulocyte Absolute (ANC) 2.16 (1.4-6.9); Granulocytes % 48.4 % (36.0-66.0); Hematocrit 39.6 % (35-47); Hemoglobin 13.8 gm/dl (12.0-16.0); Lymphocytes % 40.4 % (24.0-44.0); Mean Cell Volume 91.7 fl (78-100); Mean Corpuscular Hemoglobin 31.9 pg (26-32); Mean Corpuscular Hgb Concent. 34.8 g/dl (32-36); Mean Platelet Volume 10.3 fl (6-9.5); Platelet Count 203 K/mm3 (150-450); Red Blood Count 4.32 M/mm3 (4.1-5.4); Red Cell Distribution Width 12.5 % (11.5-14.0); White Blood Count 4.5 K/mm3 (4.0-10.5)
[2019-02-05 11:36] LABS: ALBUMIN 4.1 g/dL (3.5-5.0); ALKALINE PHOSPHATASE 81 U/L (38-126); AMYLASE 46 U/L (30-110); ANION GAP 12.1 MEQ/L (5-15); BLOOD UREA NITROGEN 14 mg/dL (7-17); CHLORIDE 111 mmol/L (98-107); Calcium 9.3 mg/dL (8.4-10.2); Carbon Dioxide 20 mmol/L (22-30); Creatinine 1 0.95 mg/dL (0.52-1.04); Glucose 90 mg/dL (74-106); LIPASE 107 U/L (23-300); Potassium 4.1 mmol/L (3.5-5.1); SGOT/AST 22 U/L (14-36); SGPT/ALT 17 U/L (0-35); SODIUM 139 mmol/L (137-145); Total Protein 7.2 g/dL (6.3-8.2)
--- NOTE | 2019-02-05 11:45 | ERPHSYRPT ---
- History of Present Illness Time Seen by Provider: 02/05/19 10:35 Historian: patient Exam Limitations: no limitations Patient Subjective Stated Complaint: Has not had a bowel movement since last ER visit on 01/09/2019, abdomen is large, distended and hard Triage Nursing Assessment: Pt c/o of not having a bowel movement for over a month, stomach is distended and appears looking, states that she has tried all types of laxatives with no results, all intake is vomited back up, throwing up feces, belching tastes like feces, denies having gas, hyperactive bowel sounds heard in all 4 quadrants, rates pain 8/10 Physician History: 38 y/o white female with h/o gastroparesis and has a subq dilaudid pain pump left upper quadrant. she has not had a bm since 01/09/19. she has not seen her gi doctor in quite some time. pt states she attempted to use various laxatives, stool softeners, and rectal suppositories and enemas without effect. pt states her abd distension worsening and she feels she is vomiting "poop" Timing/Duration: week(s) (3), worse Activities at Onset: none Quality: fullness, tightness Abdominal Pain Onset Location: generalized abdomen Pain Radiation: no radiation Severity of Pain-Max: mild Severity of Pain-Current: mild Modifying Factors: Improves With: vomiting Associated Symptoms: nausea, vomiting Allergies/Adverse Reactions: codeine Allergy (Intermediate, Verified 02/05/19 10:33) Hives meperidine [From Demerol] Allergy (Intermediate, Verified 02/05/19 10:33) morphine Allergy (Intermediate, Verified 02/05/19 10:33) Hives Home Medications: Lipase/Protease/Amylase [Valerieon Dr 24,000 Units Capsule] 2 cap PO 5XD 08/23/18 [ History] Ranitidine HCl [Zantac] 150 mg PO DAILY 08/23/18 [History] Fluoxetine HCl 60 mg PO DAILY 02/05/19 [History] Linaclotide [Linzess] 290 mcg PO DAILY 02/05/19 [History] Sucralfate 1 gm PO QID 02/05/19 [History] Topiramate [Trokendi Xr] 100 mg PO DAILY 02/05/19 [History] Hx Tetanus, Diphtheria Vaccination/Date Given: Yes Hx Influenza Vaccination/Date Given: Yes Hx Pneumococcal Vaccination/Date Given: No - Review of Systems Constitutional: No Symptoms Eyes: No Symptoms Ears, Nose, & Throat: No Symptoms Respiratory: No Symptoms Cardiac: No Symptoms Abdominal/Gastrointestinal: Abdominal Pain (mild diffuse), Nausea, Vomiting Genitourinary Symptoms: No Symptoms Musculoskeletal: No Symptoms Skin: No Symptoms Neurological: No Symptoms Psychological: No Symptoms Endocrine: No Symptoms Hematologic/Lymphatic: No Symptoms Immunological/Allergic: No Symptoms All Other Systems: Reviewed and Negative - Past Medical History Pertinent Past Medical History: Yes Neurological History: No Pertinent History, Migraines ENT History: No Pertinent History Cardiac History: No Pertinent History Respiratory History: No Pertinent History, Bronchitis Endocrine Medical History: No Pertinent History Musculoskeletal History: No Pertinent History GI Medical History: No Pertinent History, GERD, Gallbladder Disease, Irritable Bowel, Pancreatitis, Other History: Other Psycho-Social History: No Pertinent History, Anxiety, Depression Other Medical History: stress test. CAD. pyloric stenosis. gastroporesis - Past Surgical History Past Surgical History: Yes Neuro Surgical History: No Pertinent History Cardiac: No Pertinent History Respiratory: No Pertinent History Gastrointestinal: Appendectomy, Cholecystectomy Genitourinary: Other Musculoskeletal: No Pertinent History Female Surgical History: Hysterectomy Other Surgical History: Gastroporisis, pyloric stenosis. pain pump implant. esophageal stretch. pelvic floor/bladder sling - october 2018 - Social History Smoking Status: Former smoker How long have you smoked: years Exposure to second hand smoke: Yes Drug Use: none Patient Lives Alone: No - Female History Hx Now: No (hysterectomy) - Nursing Vital Signs Nursing Vital Signs: Initial Vital Signs Temperature 97.6 F 02/05/19 10:22 Pulse Rate 73 02/05/19 10:22 Respiratory Rate 99 H 02/05/19 10:22 Blood Pressure 122/84 02/05/19 10:22 Pain Scale Pain Intensity 4 - Physical Exam General Appearance: no apparent distress, alert, anxiety Eye Exam: PERRL/EOMI Ears, Nose, Throat Exam: normal ENT inspection, moist mucous membranes Neck Exam: normal inspection, non-tender, supple, full range of motion Respiratory Exam: normal breath sounds, lungs clear, airway intact, No chest tenderness, No respiratory distress Cardiovascular Exam: regular rate/rhythm, normal heart sounds, normal peripheral pulses Gastrointestinal/Abdomen Exam: normal bowel sounds, tenderness (mild diffuse), distention, No guarding, No rebound Pelvic Exam: not done Rectal Exam: normal exam, normal rectal tone Back Exam: normal inspection, normal range of motion, No CVA tenderness, No vertebral tenderness Extremity Exam: normal inspection, normal range of motion, pelvis stable Neurologic Exam: alert, oriented x 3, cooperative, wooden frame builder II-XII nml as tested Skin Exam: normal color, warm, dry Lymphatic Exam: No adenopathy SpO2 Interpretation: normal O2 Delivery: Room Air - Course Nursing assessment & vital signs reviewed: Yes Ordered Tests: Active Orders 24 hr Category Date Time Status Clean Catch Urine Specimen STAT Care 02/05/19 11:07 Active IV Insertion STAT Care 02/05/19 11:07 Active ABDOMEN AND PELVIS W CONTRAST [CT] Stat Exams 02/05/19 11:08 Completed AMYLASE Stat Lab 02/05/19 11:21 Completed CBC W DIFF Stat Lab 02/05/19 11:21 Completed CMP Stat Lab 02/05/19 11:21 Completed LIPASE Stat Lab 02/05/19 11:21 Completed Lactic Acid Stat Lab 02/05/19 11:26 Completed UA W/RFX UR CULTURE Stat Lab 02/05/19 12:20 Received Medication Summary Discontinued Medications Generic Name Dose Route Start Last Admin Trade Name Freq PRN Reason Stop Dose Admin Hydromorphone HCl 0.5 mg 02/05/19 11:07 02/05/19 11:17 Hydromorphone 1 Mg/Ml Ampule IV 02/05/19 11:08 0.5 mg STAT ONE Administration Hydromorphone HCl Confirm 02/05/19 11:14 Hydromorphone 1 Mg/Ml Ampule Administered 02/05/19 11:15 Dose 1 mg .ROUTE .STK-MED ONE Sodium Chloride 1,000 mls @ 999 mls/hr 02/05/19 11:07 02/05/19 11:17 Sodium Chloride 0.9% 1000 Ml IV 02/05/19 12:07 999 mls/hr .Q1H1M STA Administration Sodium Chloride Confirm 02/05/19 11:14 Sodium Chloride 0.9% 1000 Ml Administered 02/05/19 11:15 Dose 1,000 mls @ ud .ROUTE .STK-MED ONE Ondansetron HCl 4 mg 02/05/19 11:07 02/05/19 11:17 Zofran 4 Mg/2 Ml Vial IV 02/05/19 11:08 4 mg STAT ONE Administration Ondansetron HCl Confirm 02/05/19 11:14 Zofran 4 Mg/2 Ml Vial Administered 02/05/19 11:15 Dose 4 mg .ROUTE .STK-MED ONE Lab/Rad Data: Laboratory Result Diagrams 02/05/19 11:21 02/05/19 11:21 Laboratory Results 02/05/19 02/05/19 02/05/19 Range/Units 11:26 11:21 11:21 WBC 4.5 (4.0-10.5) K/mm3 RBC 4.32 (4.1-5.4) M/mm3 Hgb 13.8 (12.0-16.0) gm/dl Hct 39.6 (35-47) % MCV 91.7 (78-100) fl MCH 31.9 (26-32) pg MCHC 34.8 (32-36) g/dl RDW 12.5 (11.5-14.0) % Plt Count 203 (150-450) K/mm3 MPV 10.3 H (6-9.5) fl Gran % 48.4 (36.0-66.0) % Eos # (Auto) 0.08 (0-0.5) Absolute Lymphs (auto) 1.80 (1.0-4.6) Absolute Monos (auto) 0.40 (0.0-1.3) Lymphocytes % 40.4 (24.0-44.0) % Monocytes % 9.0 (0.0-12.0) % Eosinophils % 1.8 (0.00-5.0) % Basophils % 0.4 (0.0-0.4) % Absolute Granulocytes 2.16 (1.4-6.9) Basophils # 0.02 (0-0.4) Sodium 139 (137-145) mmol/L Potassium 4.1 (3.5-5.1) mmol/L Chloride 111 H (98-107) mmol/L Carbon Dioxide 20 L (22-30) mmol/L Anion Gap 12.1 (5-15) MEQ/L BUN 14 (7-17) mg/dL Creatinine 0.95 (0.52-1.04) mg/dL Estimated GFR > 60.0 ML/MIN Glucose 90 (74-106) mg/dL Lactic Acid 1.1 (0.4-2.0) Calcium 9.3 (8.4-10.2) mg/dL Total Bilirubin 0.40 (0.2-1.3) mg/dL AST 22 (14-36) U/L ALT 17 (0-35) U/L Alkaline Phosphatase 81 (38-126) U/L Serum Total Protein 7.2 (6.3-8.2) g/dL Albumin 4.1 (3.5-5.0) g/dL Amylase 46 (30-110) U/L Lipase 107 (23-300) U/L - Progress Progress: unchanged Progress Note: 02/05/19 12:39 ct scan abd/pelvis-jejunal enteritis Counseled pt/family regarding: lab results, diagnosis, need for follow-up, rad results - Departure Departure Disposition: Home Clinical Impression: Regional enteritis of jejunum, Ileus Condition: Stable Critical Care Time: No Referrals: PENNY LYNN MD [Primary Care Provider] - Additional Instructions: drink plenty of fluids. call your net repairer today to arrange for follow up appointment and for further management. use your pain pump for pain control and your antiemetics for prevention of nausea and vomiting Prescriptions: Ciprofloxacin [Cipro 500 MG] 500 mg PO BID #14 tablet Metronidazole 500 mg [Flagyl 500 MG] 500 mg PO TID #21 tablet
[2019-02-05 12:16] VITALS: O2SAT 99
--- NOTE | 2019-02-05 12:24 | XRAY ---
Indication: Abdominal pain, distention, and vomiting. History gastroparesis. Multiple contiguous axial images obtained through the abdomen and pelvis using 80 cc Isovue 370 contrast only. Comparison: January 09, 2019. Lung bases demonstrates minimal bibasilar dependent atelectasis. No infiltrate or effusion. Heart is not enlarged. Partially visualized bilateral breast implants not previously included in the [id number]. Pain pump in the left anterior abdominal wall again produces beam artifact. Noncontrasted stomach and bowel loops appear nonobstructed. Jejunal bowel loops now mildly fluid distended with wall thickening favoring enteritis. Again previous appendectomy, cholecystectomy, and hysterectomy. No free fluid/air. Stable nonobstructing right renal micro-calculus. Remaining liver, pancreas, spleen, adrenal glands, kidneys, ureters, bladder, and aorta appear unremarkable. Impression: 1. Mild fluid distended jejunal bowel loops with wall thickening. Rule out enteritis. 2. Stable nonobstructing right renal micro-calculus. 3. Remaining CT abdomen/pelvis with contrast exam is negative. CT DI 15.84
[2019-02-05 12:28] LABS: Appearance CLEAR (CLEAR); Bilirubin NEGATIVE (NEGATIVE); Blood NEGATIVE Ery/ul (0-5); Glucose NEGATIVE (NEGATIVE); Ketones NEGATIVE (NEGATIVE); Leukocyte Esterase NEGATIVE (NEGATIVE); Mucus SLIGHT /HPF (NEGATIVE); Nitrite NEGATIVE (NEGATIVE); Protein,Urine Dip NEGATIVE (Negative); Specific Gravity 1.024 (1.005-1.025); Urobilinogen NEGATIVE mg/dL (0-1)
[2019-02-05 13:24] VITALS: BP 128/62; PULSE 54
== END 2019-02-05 14:08 | disposition home or self-care (01) ==
LOC: ED 10:04
DX: K50.00 Crohn's disease of small intestine without complications (principal)
CPT/HCPCS: 36415; 74177; 80053; 81001; 82150; 83605; 83690; 85025; 96360; 96374; 96375; 99284; J1170; J2405

== ENCOUNTER 2019-02-17 20:51 | Emergency (ER) | payer OTHER ==
[2019-02-17] MEDS ORDERED: Sodium Chloride 0.9% 1000 ML 1,000 ML IV STA (21:46)
[2019-02-17] MEDS ORDERED: Sodium Chloride 0.9% 1000 ML 1,000 ML ONE (21:56)
[2019-02-17 22:17] LABS: BASOPHIL % 0.4 % (0.0-0.4); Basophil (Absolute #) 0.03 (0-0.4); Eosinophil % 2.4 % (0.00-5.0); Eosinophil (Absolute #) 0.18 (0-0.5); Granulocyte Absolute (ANC) 3.57 (1.4-6.9); Granulocytes % 48.4 % (36.0-66.0); Hematocrit 42.9 % (35-47); Hemoglobin 14.1 gm/dl (12.0-16.0); Lymphocyte (Absolute #) 2.98 (1.0-4.6); Lymphocytes % 40.4 % (24.0-44.0); Mean Cell Volume 94.9 fl (78-100); Mean Corpuscular Hemoglobin 31.2 pg (26-32); Mean Corpuscular Hgb Concent. 32.9 g/dl (32-36); Mean Platelet Volume 10.8 fl (6-9.5); Monocyte (Absolute #) 0.62 (0.0-1.3); Monocytes % 8.4 % (0.0-12.0); Platelet Count 223 K/mm3 (150-450); Red Blood Count 4.52 M/mm3 (4.1-5.4); Red Cell Distribution Width 12.3 % (11.5-14.0); White Blood Count 7.4 K/mm3 (4.0-10.5)
[2019-02-17 22:18] VITALS: O2SAT 99
[2019-02-17 22:22] LABS: Appearance CLEAR (CLEAR); Bilirubin NEGATIVE (NEGATIVE); Blood NEGATIVE Ery/ul (0-5); Glucose NEGATIVE (NEGATIVE); Ketones NEGATIVE (NEGATIVE); Leukocyte Esterase NEGATIVE (NEGATIVE); Mucus SLIGHT /HPF (NEGATIVE); Nitrite NEGATIVE (NEGATIVE); Protein,Urine Dip NEGATIVE (Negative); Specific Gravity 1.021 (1.005-1.025); Urobilinogen NEGATIVE mg/dL (0-1)
[2019-02-17 22:29] LABS: ALBUMIN 4.3 g/dL (3.5-5.0); ALKALINE PHOSPHATASE 65 U/L (38-126); ANION GAP 12.8 MEQ/L (5-15); BLOOD UREA NITROGEN 11 mg/dL (7-17); CHLORIDE 106 mmol/L (98-107); Calcium 9.3 mg/dL (8.4-10.2); Carbon Dioxide 27 mmol/L (22-30); Creatinine 1 0.83 mg/dL (0.52-1.04); Glucose 84 mg/dL (74-106); LIPASE 164 U/L (23-300); Potassium 3.7 mmol/L (3.5-5.1); SGOT/AST 26 U/L (14-36); SGPT/ALT 24 U/L (0-35); SODIUM 142 mmol/L (137-145); Total Protein 7.3 g/dL (6.3-8.2)
[2019-02-17] MEDS ORDERED: Zofran 4 MG/2 ML VIAL IV ONE (22:33)
[2019-02-17] MEDS ORDERED: Zofran 4 MG/2 ML VIAL ONE (22:34)
[2019-02-17 22:37] LABS: Amphetamine,Urine NEGATIVE (NEGATIVE); Barbiturate,Urine NEGATIVE (NEGATIVE); Benzodiazepine,Urine NEGATIVE (NEGATIVE); Cocaine,Urine NEGATIVE (NEGATIVE); Methadone,Urine NEGATIVE (NEGATIVE); Opiate,Urine NEGATIVE (NEGATIVE); PCP,Urine NEGATIVE (NEGATIVE); THC,Urine NEGATIVE (NEGATIVE)
[2019-02-17 22:39] VITALS: BP 115/73; PULSE 60
--- NOTE | 2019-02-17 23:08 | ERPHSYRPT ---
- History of Present Illness Historian: patient, family Exam Limitations: no limitations Patient Subjective Stated Complaint: vomiting, pain and nausea much worse today than usual. Pt was in ER 1 week ago and given atb but she in unable to take them, just vomits them up. Triage Nursing Assessment: lungs clear, no distress noted. heart tones regular , abd lg, round with active bs x4, tender on palpation. lbm 02/17/19. pt c/o nausea, vomiting, abd pain and unable to eat. Physician History: Pt is a 38 y/o female with a chronic abdominal pain, and nausea. She has diagnosis of gastric paresis and chronic pancreatitis. Pt states, was recently diagnosed here with colitis, and was given Cipro and Flagyl, but she keeps vomiting, and is not sure if she absorbed it. Timing/Duration: constant Activities at Onset: none Quality: cramping, stabbing Abdominal Pain Onset Location: generalized abdomen Pain Radiation: no radiation Severity of Pain-Max: severe Severity of Pain-Current: severe Modifying Factors: Improves With: analgesics Associated Symptoms: nausea, vomiting Allergies/Adverse Reactions: codeine Allergy (Intermediate, Verified 02/05/19 10:33) Hives meperidine [From Demerol] Allergy (Intermediate, Verified 02/05/19 10:33) morphine Allergy (Intermediate, Verified 02/05/19 10:33) Hives Home Medications: Lipase/Protease/Amylase [Valerieon Dr 24,000 Units Capsule] 2 cap PO 5XD 08/23/18 [ History] Ranitidine HCl [Zantac] 150 mg PO DAILY 08/23/18 [History] Fluoxetine HCl 60 mg PO DAILY 02/05/19 [History] Linaclotide [Linzess] 290 mcg PO DAILY 02/05/19 [History] Sucralfate 1 gm PO QID 02/05/19 [History] Topiramate [Trokendi Xr] 100 mg PO DAILY 02/05/19 [History] Ondansetron HCl [Zofran] 8 mg PO Q6H PRN PRN 02/17/19 [History] Promethazine HCl 25 mg Supp [Phenergan 25 mg Supp] 25 mg RC Q8HPRN PRN [History] Promethazine HCl 25 mg [Phenergan 25 mg] 25 mg PO Q8H PRN PRN 02/17/19 [ History] Hx Tetanus, Diphtheria Vaccination/Date Given: Yes Hx Influenza Vaccination/Date Given: Yes Hx Pneumococcal Vaccination/Date Given: No Immunizations Up to Date: Yes - Review of Systems Constitutional: Fatigue, Lethargy Eyes: No Symptoms Ears, Nose, & Throat: No Symptoms Respiratory: No Cough, No Dyspnea Cardiac: No Chest Pain, No Edema, No Syncope Abdominal/Gastrointestinal: Abdominal Pain, Nausea, Vomiting Genitourinary Symptoms: No Dysuria Musculoskeletal: No Back Pain, No Neck Pain Neurological: No Dizziness, No Focal Weakness, No Sensory Changes - Past Medical History Pertinent Past Medical History: Yes Neurological History: Migraines ENT History: No Pertinent History Cardiac History: No Pertinent History Respiratory History: Bronchitis, Pneumonia Endocrine Medical History: No Pertinent History Musculoskeletal History: No Pertinent History GI Medical History: GERD, Gallbladder Disease History: No Pertinent History Psycho-Social History: Anxiety, Depression Female Reproductive Disorders: No Pertinent History Other Medical History: gastroparesis - Past Surgical History Past Surgical History: Yes Neuro Surgical History: No Pertinent History Cardiac: No Pertinent History Respiratory: No Pertinent History Gastrointestinal: Appendectomy, Cholecystectomy Genitourinary: No Pertinent History Musculoskeletal: No Pertinent History Female Surgical History: Hysterectomy Other Surgical History: medtronic pain pump, pyloric stretched and dilated many times - Social History Smoking Status: Current every day smoker How long have you smoked: 15 years Exposure to second hand smoke: Yes Drug Use: none Patient Lives Alone: No - Female History Hx Now: No - Nursing Vital Signs Nursing Vital Signs: Initial Vital Signs Temperature 98.1 F 02/17/19 20:51 Pulse Rate 65 02/17/19 20:51 Respiratory Rate 18 02/17/19 20:51 Blood Pressure 138/86 02/17/19 20:51 O2 Sat by Pulse Oximetry 96 02/17/19 20:51 Pain Scale Pain Intensity 7 - Physical Exam General Appearance: moderate distress Eye Exam: PERRL/EOMI, eyes nml inspection Ears, Nose, Throat Exam: normal ENT inspection, pharynx normal, moist mucous membranes Neck Exam: normal inspection, non-tender, supple, full range of motion Respiratory Exam: normal breath sounds, lungs clear, No respiratory distress Cardiovascular Exam: regular rate/rhythm, normal heart sounds Gastrointestinal/Abdomen Exam: tenderness Back Exam: normal inspection, normal range of motion, No CVA tenderness, No vertebral tenderness Extremity Exam: normal inspection, normal range of motion, pelvis stable Neurologic Exam: alert, oriented x 3, cooperative, normal mood/affect, nml cerebellar function, sensation nml, No motor deficits SpO2: 99 - Course Nursing assessment & vital signs reviewed: Yes Ordered Tests: Active Orders 24 hr Category Date Time Status IV Insertion STAT Care 02/17/19 21:46 Active CBC W DIFF Stat Lab 02/17/19 21:30 Completed CMP Stat Lab 02/17/19 21:30 Completed LIPASE Stat Lab 02/17/19 21:30 Completed Lactic Acid Stat Lab 02/17/19 21:52 Completed UA W/RFX UR CULTURE Stat Lab 02/17/19 21:30 Completed Urine Triage Profile Stat Lab 02/17/19 21:30 Completed Medication Summary Discontinued Medications Generic Name Dose Route Start Last Admin Trade Name Freq PRN Reason Stop Dose Admin Sodium Chloride 1,000 mls @ 999 mls/hr 02/17/19 21:46 02/17/19 22:58 Sodium Chloride 0.9% 1000 Ml IV 02/17/19 22:46 Infused .Q1H1M STA Infusion Sodium Chloride Confirm 02/17/19 21:56 Sodium Chloride 0.9% 1000 Ml Administered 02/17/19 21:57 Dose 1,000 mls @ ud .ROUTE .STK-MED ONE Ondansetron HCl 4 mg 02/17/19 22:33 02/17/19 22:36 Zofran 4 Mg/2 Ml Vial IV 02/17/19 22:34 4 mg STAT ONE Administration Ondansetron HCl Confirm 02/17/19 22:34 Zofran 4 Mg/2 Ml Vial Administered 02/17/19 22:35 Dose 4 mg .ROUTE .STK-MED ONE Lab/Rad Data: Laboratory Result Diagrams 02/17/19 21:30 02/17/19 21:30 Laboratory Results 02/17/19 02/17/19 02/17/19 Range/Units 21:52 21:30 21:30 WBC (4.0-10.5) K/mm3 RBC (4.1-5.4) M/mm3 Hgb (12.0-16.0) gm/dl Hct (35-47) % MCV (78-100) fl MCH (26-32) pg MCHC (32-36) g/dl RDW (11.5-14.0) % Plt Count (150-450) K/mm3 MPV (6-9.5) fl Gran % (36.0-66.0) % Eos # (Auto) (0-0.5) Absolute Lymphs (auto) (1.0-4.6) Absolute Monos (auto) (0.0-1.3) Lymphocytes % (24.0-44.0) % Monocytes % (0.0-12.0) % Eosinophils % (0.00-5.0) % Basophils % (0.0-0.4) % Absolute Granulocytes (1.4-6.9) Basophils # (0-0.4) Sodium (137-145) mmol/L Potassium (3.5-5.1) mmol/L Chloride (98-107) mmol/L Carbon Dioxide (22-30) mmol/L Anion Gap (5-15) MEQ/L BUN (7-17) mg/dL Creatinine (0.52-1.04) mg/dL Estimated GFR ML/MIN Glucose (74-106) mg/dL Lactic Acid 1.3 (0.4-2.0) Calcium (8.4-10.2) mg/dL Total Bilirubin (0.2-1.3) mg/dL AST (14-36) U/L ALT (0-35) U/L Alkaline Phosphatase (38-126) U/L Serum Total Protein (6.3-8.2) g/dL Albumin (3.5-5.0) g/dL Lipase (23-300) U/L Urine Color YELLOW (YELLOW) Urine Appearance CLEAR (CLEAR) Urine pH 7.0 (5-6) Ur Specific [place] 1.021 (1.005-1.025) Urine Protein NEGATIVE (Negative) Urine Ketones NEGATIVE (NEGATIVE) Urine Blood NEGATIVE (0-5) Dylan/ul Urine Nitrite NEGATIVE (NEGATIVE) Urine Bilirubin NEGATIVE (NEGATIVE) Urine Urobilinogen NEGATIVE (0-1) mg/dL Ur Leukocyte Esterase NEGATIVE (NEGATIVE) Urine WBC (Auto) NONE (0-5) /HPF Urine RBC (Auto) NONE (0-2) /HPF U Epithel Cells (Auto) NONE (FEW) /HPF Urine Bacteria (Auto) NONE (NEGATIVE) /HPF Urine Mucus (Auto) SLIGHT (NEGATIVE) /HPF Urine Culture Reflexed NO (NO) Urine Glucose NEGATIVE (NEGATIVE) mg/dL Urine Opiates Level NEGATIVE (NEGATIVE) Ur Methadone NEGATIVE (NEGATIVE) Urine Barbiturates NEGATIVE (NEGATIVE) Ur Phencyclidine (PCP) NEGATIVE (NEGATIVE) Urine Amphetamine NEGATIVE (NEGATIVE) U Benzodiazepine Level NEGATIVE (NEGATIVE) Urine Cocaine NEGATIVE (NEGATIVE) Urine Marijuana (THC) NEGATIVE (NEGATIVE) 02/17/19 02/17/19 Range/Units 21:30 21:30 WBC 7.4 (4.0-10.5) K/mm3 RBC 4.52 (4.1-5.4) M/mm3 Hgb 14.1 (12.0-16.0) gm/dl Hct 42.9 (35-47) % MCV 94.9 (78-100) fl MCH 31.2 (26-32) pg MCHC 32.9 (32-36) g/dl RDW 12.3 (11.5-14.0) % Plt Count 223 (150-450) K/mm3 MPV 10.8 H (6-9.5) fl Gran % 48.4 (36.0-66.0) % Eos # (Auto) 0.18 (0-0.5) Absolute Lymphs (auto) 2.98 (1.0-4.6) Absolute Monos (auto) 0.62 (0.0-1.3) Lymphocytes % 40.4 (24.0-44.0) % Monocytes % 8.4 (0.0-12.0) % Eosinophils % 2.4 (0.00-5.0) % Basophils % 0.4 (0.0-0.4) % Absolute Granulocytes 3.57 (1.4-6.9) Basophils # 0.03 (0-0.4) Sodium 142 (137-145) mmol/L Potassium 3.7 (3.5-5.1) mmol/L Chloride 106 (98-107) mmol/L Carbon Dioxide 27 (22-30) mmol/L Anion Gap 12.8 (5-15) MEQ/L BUN 11 (7-17) mg/dL Creatinine 0.83 (0.52-1.04) mg/dL Estimated GFR > 60.0 ML/MIN Glucose 84 (74-106) mg/dL Lactic Acid (0.4-2.0) Calcium 9.3 (8.4-10.2) mg/dL Total Bilirubin 0.20 (0.2-1.3) mg/dL AST 26 (14-36) U/L ALT 24 (0-35) U/L Alkaline Phosphatase 65 (38-126) U/L Serum Total Protein 7.3 (6.3-8.2) g/dL Albumin 4.3 (3.5-5.0) g/dL Lipase 164 (23-300) U/L Urine Color (YELLOW) Urine Appearance (CLEAR) Urine pH (5-6) Ur Specific [place] (1.005-1.025) Urine Protein (Negative) Urine Ketones (NEGATIVE) Urine Blood (0-5) Dylan/ul Urine Nitrite (NEGATIVE) Urine Bilirubin (NEGATIVE) Urine Urobilinogen (0-1) mg/dL Ur Leukocyte Esterase (NEGATIVE) Urine WBC (Auto) (0-5) /HPF Urine RBC (Auto) (0-2) /HPF U Epithel Cells (Auto) (FEW) /HPF Urine Bacteria (Auto) (NEGATIVE) /HPF Urine Mucus (Auto) (NEGATIVE) /HPF Urine Culture Reflexed (NO) Urine Glucose (NEGATIVE) mg/dL Urine Opiates Level (NEGATIVE) Ur Methadone (NEGATIVE) Urine Barbiturates (NEGATIVE) Ur Phencyclidine (PCP) (NEGATIVE) Urine Amphetamine (NEGATIVE) U Benzodiazepine Level (NEGATIVE) Urine Cocaine (NEGATIVE) Urine Marijuana (THC) (NEGATIVE) - Progress Progress Note: 02/17/19 23:05 Pt is a 38 y/o female that has chronic abdominal illnessesd and a pain pump that is present. Pt had lab work that were normal, including UA. I discussed with the pt the need to f/u with her PCP and GI specialist, for decision making and therapy. At this point, there is nothing that can be done in our hospital, and she needs to be seen in [facility]. Pt has pain specialist that control her pain with Dilaudid via pain pump. Will see patient in: office Counseled pt/family regarding: need for follow-up - Departure Departure Disposition: Home Clinical Impression: Chronic abdominal pain Condition: Stable Critical Care Time: No Referrals: PENNY LYNN MD [Primary Care Provider] - Additional Instructions: F/U with PCP, and get referal for gastroparesis specialist.
== END 2019-02-17 23:25 | disposition home or self-care (01) ==
LOC: ED 20:51
DX: R10.9 Unspecified abdominal pain (principal); G89.29 Other chronic pain; Z79.899 Other long term (current) drug therapy
CPT/HCPCS: 36000; 36415; 80053; 80307; 81001; 83605; 83690; 85025; 96360; 96374; 99284; J2405

== ENCOUNTER 2019-06-04 08:12 | Emergency (ER) | payer OTHER ==
--- NOTE | 2019-06-04 08:26 | ERPHSYRPT ---
- History of Present Illness Time Seen by Provider: 06/04/19 08:25 Historian: patient Exam Limitations: no limitations Patient Subjective Stated Complaint: Pt states "I have had chest pain on and off for the past 2 days. I have pain in my chest now that goes up into my right shoulder. I have an internal pain pump in my left upper belly that they just moved. I took a nitro 45 minutes ago and it did not help." Triage Nursing Assessment: Pt presented alert and oriented X 3, skin pwd. Pt ambulates with an upright steady gait, able to speak in clear full sentences. PT in no apparent respiratory distress. Physician History: 38 y/o white female with h/o inverted t waves, no cadz or mi presents with 2 to 3 day h/o substernal cp with radiation to right arm. pt has h/o gastroparesis and gerdz. this cp seems different than her gerdz. it did not respond to ntg. pt took 3 baby asa this am. denies soa, denies abd pain. Timing/Duration: day(s) (2 to 3 days) Quality: sharpness, stabbing Location: substernal Chest Pain Radiation: arm (right) Severity of Pain-Max: mild Severity of Pain-Current: mild Modifying Factors: Improves With: nothing Associated Symptoms: denies symptoms Prior Chest Pain/Cardiac Workup: angina Nitro Today/Relief: 0.4 mg x 1 Aspirin Treatment Today: 81 mg x 3 Allergies/Adverse Reactions: codeine Allergy (Intermediate, Verified 02/05/19 10:33) Hives meperidine [From Demerol] Allergy (Intermediate, Verified 02/05/19 10:33) morphine Allergy (Intermediate, Verified 02/05/19 10:33) Hives Home Medications: Lipase/Protease/Amylase [Francesca Mcmillan 24,000 Units Capsule] 2 cap PO 5XD 08/23/18 [ History] Ranitidine HCl [Zantac] 150 mg PO DAILY 08/23/18 [History] Fluoxetine HCl 60 mg PO DAILY 02/05/19 [History] Linaclotide [Linzess] 290 mcg PO DAILY 02/05/19 [History] Sucralfate 1 gm PO QID 02/05/19 [History] Ondansetron HCl [Zofran] 8 mg PO Q6H PRN PRN 02/17/19 [History] Promethazine HCl 25 mg Supp [Phenergan 25 mg Supp] 25 mg RC Q8HPRN PRN [History] Promethazine HCl 25 mg [Phenergan 25 mg] 25 mg PO Q8H PRN PRN 02/17/19 [ History] Prednisone 10 mg [Deltasone 10 mg] 10 mg PO DAILY 06/04/19 [History] hydrOXYzine HCl [Hydroxyzine HCl] 10 mg PO DAILY 06/04/19 [History] Hx Tetanus, Diphtheria Vaccination/Date Given: Yes Hx Influenza Vaccination/Date Given: Yes Hx Pneumococcal Vaccination/Date Given: No Immunizations Up to Date: Yes - Past Medical History Pertinent Past Medical History: Yes Neurological History: Migraines ENT History: No Pertinent History Cardiac History: No Pertinent History Respiratory History: Bronchitis, Pneumonia Endocrine Medical History: No Pertinent History Musculoskeletal History: No Pertinent History GI Medical History: GERD, Gallbladder Disease History: No Pertinent History Psycho-Social History: Anxiety, Depression Female Reproductive Disorders: No Pertinent History Other Medical History: gastroparesis - Past Surgical History Past Surgical History: Yes Neuro Surgical History: No Pertinent History Cardiac: No Pertinent History Respiratory: No Pertinent History Gastrointestinal: Appendectomy, Cholecystectomy Genitourinary: No Pertinent History Musculoskeletal: No Pertinent History Female Surgical History: Hysterectomy Other Surgical History: medtronic pain pump, pyloric stretched and dilated many times. replaced pain pump - Social History Smoking Status: Current every day smoker How long have you smoked: years Exposure to second hand smoke: Yes Drug Use: none Patient Lives Alone: No - Female History Hx Last Menstrual Period: hysterectomy Hx Now: No - Nursing Vital Signs Nursing Vital Signs: Initial Vital Signs Temperature 98.1 F 06/04/19 08:12 Pulse Rate 69 06/04/19 08:12 Respiratory Rate 16 06/04/19 08:12 Blood Pressure 154/93 06/04/19 08:12 O2 Sat by Pulse Oximetry 100 06/04/19 08:12 Pain Scale Pain Intensity 6 - Physical Exam General Appearance: mild distress, alert, anxiety Eye Exam: PERRL/EOMI Ears, Nose, Throat Exam: normal ENT inspection, moist mucous membranes Neck Exam: normal inspection, non-tender Respiratory Exam: normal breath sounds, lungs clear, airway intact, No chest tenderness, No respiratory distress Cardiovascular Exam: regular rate/rhythm, normal heart sounds, normal peripheral pulses Gastrointestinal/Abdomen Exam: soft, normal bowel sounds, No tenderness Pelvic Exam: not done Rectal Exam: not done Back Exam: normal inspection, normal range of motion, No CVA tenderness, No vertebral tenderness Extremity Exam: normal inspection, normal range of motion, pelvis stable Neurologic Exam: alert, oriented x 3, cooperative, director advertising II-XII nml as tested Skin Exam: normal color, warm, dry Lymphatic Exam: No adenopathy SpO2 Interpretation: normal SpO2: 100 O2 Delivery: Room Air - Course Nursing assessment & vital signs reviewed: Yes EKG Interpreted by Me: RATE (58), Sinus Rhythm, NORMAL AXIS, Non-specific ST Changes, Other (compariso ekg 08/23/[address] segment changes.) Ordered Tests: Active Orders 24 hr Category Date Time Status Insemination Worker STAT Care 06/04/19 08:30 Active EKG-ER Only STAT Care 06/04/19 08:30 Active IV Insertion STAT Care 06/04/19 08:30 Active Pulse Oximetry (ED) STAT Care 06/04/19 08:30 Active CHEST 1 VIEW (PORTABLE) Stat Exams 06/04/19 08:29 Completed CHEST WITH CONTRAST [CT] Stat Exams 06/04/19 09:13 Completed CBC W DIFF Stat Lab 06/04/19 08:45 Completed CMP Stat Lab 06/04/19 08:45 Completed D-DIMER QUANTITATION Stat Lab 06/04/19 08:45 Completed NT PRO BNP Stat Lab 06/04/19 08:45 Completed TROPONIN Q3H Lab 06/04/19 08:45 Completed TROPONIN Q3H Lab 06/04/19 11:30 Ordered TROPONIN Q3H Lab 06/04/19 14:30 Ordered TROPONIN Q3H Lab 06/04/19 17:30 Ordered TROPONIN Q3H Lab 06/04/19 20:30 Ordered Medication Summary Discontinued Medications Generic Name Dose Route Start Last Admin Trade Name Freq PRN Reason Stop Dose Admin Aspirin 81 mg 06/04/19 08:30 06/04/19 08:54 Baby Aspirin 81 Mg Chew PO 06/04/19 08:31 81 mg STAT ONE Administration Aspirin Confirm 06/04/19 08:53 Baby Aspirin 81 Mg Chew Administered 06/04/19 08:54 Dose 81 mg .ROUTE .STK-MED ONE Magnesium Hydroxide 45 ml 06/04/19 10:53 Gi Cocktail 45 Ml (Maalox/Lidocaine) PO 06/04/19 10:54 STAT ONE Lab/Rad Data: Laboratory Result Diagrams 06/04/19 08:45 06/04/19 08:45 Laboratory Results 06/04/19 06/04/19 06/04/19 Range/Units 08:45 08:45 08:45 WBC (4.0-10.5) K/mm3 RBC (4.1-5.4) M/mm3 Hgb (12.0-16.0) gm/dl Hct (35-47) % MCV (78-100) fl MCH (26-32) pg MCHC (32-36) g/dl RDW (11.5-14.0) % Plt Count (150-450) K/mm3 MPV (6-9.5) fl Gran % (36.0-66.0) % Eos # (Auto) (0-0.5) Absolute Lymphs (auto) (1.0-4.6) Absolute Monos (auto) (0.0-1.3) Lymphocytes % (24.0-44.0) % Monocytes % (0.0-12.0) % Eosinophils % (0.00-5.0) % Basophils % (0.0-0.4) % Absolute Granulocytes (1.4-6.9) Basophils # (0-0.4) D-Dimer 660 H* (215-500) ng/mL Sodium 141 (137-145) mmol/L Potassium 3.5 (3.5-5.1) mmol/L Chloride 108 H (98-107) mmol/L Carbon Dioxide 27 (22-30) mmol/L Anion Gap 9.8 (5-15) MEQ/L BUN 18 H (7-17) mg/dL Creatinine 0.84 (0.52-1.04) mg/dL Estimated GFR > 60.0 ML/MIN Glucose 78 (74-106) mg/dL Calcium 8.9 (8.4-10.2) mg/dL Total Bilirubin 0.30 (0.2-1.3) mg/dL AST 15 (14-36) U/L ALT 18 (0-35) U/L Alkaline Phosphatase 62 (38-126) U/L Troponin I < 0.012 (0.000-0.034) ng/mL NT-Pro-B Natriuret Pep 437 (0-450) pg/mL Serum Total Protein 6.2 L (6.3-8.2) g/dL Albumin 3.6 (3.5-5.0) g/dL 06/04/19 Range/Units 08:45 WBC 9.1 (4.0-10.5) K/mm3 RBC 4.03 L (4.1-5.4) M/mm3 Hgb 12.7 (12.0-16.0) gm/dl Hct 38.8 (35-47) % MCV 96.3 (78-100) fl MCH 31.5 (26-32) pg MCHC 32.7 (32-36) g/dl RDW 12.9 (11.5-14.0) % Plt Count 256 (150-450) K/mm3 MPV 10.0 H (6-9.5) fl Gran % 47.6 (36.0-66.0) % Eos # (Auto) 0.28 (0-0.5) Absolute Lymphs (auto) 3.81 (1.0-4.6) Absolute Monos (auto) 0.66 (0.0-1.3) Lymphocytes % 41.7 (24.0-44.0) % Monocytes % 7.2 (0.0-12.0) % Eosinophils % 3.1 (0.00-5.0) % Basophils % 0.4 (0.0-0.4) % Absolute Granulocytes 4.35 (1.4-6.9) Basophils # 0.04 (0-0.4) D-Dimer (215-500) ng/mL Sodium (137-145) mmol/L Potassium (3.5-5.1) mmol/L Chloride (98-107) mmol/L Carbon Dioxide (22-30) mmol/L Anion Gap (5-15) MEQ/L BUN (7-17) mg/dL Creatinine (0.52-1.04) mg/dL Estimated GFR ML/MIN Glucose (74-106) mg/dL Calcium (8.4-10.2) mg/dL Total Bilirubin (0.2-1.3) mg/dL AST (14-36) U/L ALT (0-35) U/L Alkaline Phosphatase (38-126) U/L Troponin I (0.000-0.034) ng/mL NT-Pro-B Natriuret Pep (0-450) pg/mL Serum Total Protein (6.3-8.2) g/dL Albumin (3.5-5.0) g/dL - Progress Progress: improved, re-examined Air Movement: good Progress Note: 06/04/19 10:55 cta chest-negative for pulmonary embolism distal esophageal thickening ? esophagitis. Blood Culture(s) Obtained: No Antibiotics given: No Counseled pt/family regarding: lab results, diagnosis, need for follow-up, rad results - Departure Departure Disposition: Home Clinical Impression: Esophagitis Condition: Stable Critical Care Time: No Referrals: PENNY LYNN MD [Primary Care Provider] - Additional Instructions: avoid fatty, greasy spicy foods. increase your prednisone to two times daily for 3 days. add maalox to your daily medication regimen for 3 days. follow over the counter medication directions. call a director of parks and recreation today for follow up evaluation and treatment. continue your other medication as prescribed.
--- NOTE | 2019-06-04 08:48 | XRAY ---
Indication: Chest pain 1 week. Comparison: August 23, 2018. Portable apical lordotic chest again demonstrates normal heart, lungs, and bony thorax.
[2019-06-04] MEDS ORDERED: BABY ASPIRIN 81 MG CHEW ONE (08:53)
[2019-06-04] MEDS: BABY ASPIRIN 81 MG CHEW PO ONE (08:54)
[2019-06-04 09:03] LABS: BASOPHIL % 0.4 % (0.0-0.4); Basophil (Absolute #) 0.04 (0-0.4); Eosinophil % 3.1 % (0.00-5.0); Eosinophil (Absolute #) 0.28 (0-0.5); Granulocyte Absolute (ANC) 4.35 (1.4-6.9); Granulocytes % 47.6 % (36.0-66.0); Hematocrit 38.8 % (35-47); Hemoglobin 12.7 gm/dl (12.0-16.0); Lymphocyte (Absolute #) 3.81 (1.0-4.6); Lymphocytes % 41.7 % (24.0-44.0); Mean Cell Volume 96.3 fl (78-100); Mean Corpuscular Hemoglobin 31.5 pg (26-32); Mean Corpuscular Hgb Concent. 32.7 g/dl (32-36); Monocyte (Absolute #) 0.66 (0.0-1.3); Monocytes % 7.2 % (0.0-12.0); Platelet Count 256 K/mm3 (150-450); Red Blood Count 4.03 M/mm3 (4.1-5.4); Red Cell Distribution Width 12.9 % (11.5-14.0); White Blood Count 9.1 K/mm3 (4.0-10.5)
[2019-06-04 09:24] LABS: ALBUMIN 3.6 g/dL (3.5-5.0); ALKALINE PHOSPHATASE 62 U/L (38-126); ANION GAP 9.8 MEQ/L (5-15); BLOOD UREA NITROGEN 18 mg/dL (7-17); CHLORIDE 108 mmol/L (98-107); Calcium 8.9 mg/dL (8.4-10.2); Carbon Dioxide 27 mmol/L (22-30); Creatinine 1 0.84 mg/dL (0.52-1.04); Glucose 78 mg/dL (74-106); NT PRO BNP 437 pg/mL (0-450); Potassium 3.5 mmol/L (3.5-5.1); SGOT/AST 15 U/L (14-36); SGPT/ALT 18 U/L (0-35); SODIUM 141 mmol/L (137-145); Total Protein 6.2 g/dL (6.3-8.2)
--- NOTE | 2019-06-04 10:43 | XRAY ---
Indication: Right arm, chest, and back pain. Elevated d-dimer. Multiple contiguous axial images obtained through the chest using 80 cc Isovue 370 contrast and PE protocol. Comparison: None There is good opacification of the pulmonary arteries to include the lobar and segmental branches. No filling defect or pulmonary embolus. Heart is not enlarged. Aorta is normal in course and caliber. No pathologic mediastinal/hilar lymphadenopathy. Distal esophagus demonstrates circumferential wall thickening, possible esophagitis. Examination of lung parenchyma demonstrates mild bilateral dependent atelectasis and minimal bilateral upper lobe subpleural cystic changes. No suspicious pulmonary mass, infiltrate, or effusion. Bony thorax intact. Partially visualized bilateral breast implants. Limited upper abdomen including adrenal glands are unremarkable. Impression: 1. Negative pulmonary embolus. 2. Bilateral upper lobe subpleural cystic changes. No acute cardiopulmonary abnormalities. 3. Distal esophageal wall thickening. Rule out esophagitis. CT DI 15.32
[2019-06-04 10:59] VITALS: O2SAT 100
[2019-06-04] MEDS ORDERED: XYLOCAINE HCl Viscous ONE (11:19)
[2019-06-04] MEDS ORDERED: MAALOX ES 30 ML UNIT DOSE ONE (11:19)
[2019-06-04] MEDS: GI COCKTAIL 45 ML (Maalox/Lidocaine) PO ONE (11:20)
[2019-06-04 11:24] VITALS: BP 138/80; PULSE 72
== END 2019-06-04 11:37 | disposition home or self-care (01) ==
LOC: ED 08:12
DX: K20.9 Esophagitis, unspecified (principal)
CPT/HCPCS: 36000; 36415; 71045; 71260; 80053; 83880; 84484; 85025; 85379; 93005; 93041; 94760; 99284; A9270-GY

== ENCOUNTER 2019-08-01 13:43 | Emergency (ER) | payer OTHER ==
[2019-08-01 14:06] VITALS: BP 116/56; PULSE 67; O2SAT 100
--- NOTE | 2019-08-01 14:10 | ERPHSYRPT ---
- History of Present Illness Time Seen by Provider: 08/01/19 14:09 Source: patient Exam Limitations: no limitations Patient Subjective Stated Complaint: states was dancing at a wedding last night and twisted left knee. today is having increased pain to knee. Triage Nursing Assessment: ambulated to room per self limping on left leg. skin w/d, color normal. tender to left knee. Physician History: states was dancing at a wedding last night and twisted left knee. today is having increased pain to knee. Method of Injury: twisted Occurred: yesterday Quality: aching Severity of Pain-Max: moderate Severity of Pain-Current: moderate Lower Extremities Pain: leg: left, knee: left Modifying Factors: Improves With: nothing Associated Symptoms: unable to bear weight Allergies/Adverse Reactions: codeine Allergy (Intermediate, Verified 08/01/19 13:59) Hives meperidine [From Demerol] Allergy (Intermediate, Verified 08/01/19 13:59) morphine Allergy (Intermediate, Verified 08/01/19 13:59) Hives Home Medications: Lipase/Protease/Amylase [Francesca Dr 24,000 Units Capsule] 2 cap PO 5XD 08/23/18 [ History] Ranitidine HCl [Zantac] 150 mg PO DAILY 08/23/18 [History] Fluoxetine HCl 60 mg PO DAILY 02/05/19 [History] Linaclotide [Linzess] 290 mcg PO DAILY 02/05/19 [History] Sucralfate 1 gm PO QID 02/05/19 [History] Ondansetron HCl [Zofran] 8 mg PO Q6H PRN PRN 02/17/19 [History] Promethazine HCl 25 mg Supp [Phenergan 25 mg Supp] 25 mg RC Q8HPRN PRN [History] Promethazine HCl 25 mg [Phenergan 25 mg] 25 mg PO Q8H PRN PRN 02/17/19 [ History] hydrOXYzine HCl [Hydroxyzine HCl] 10 mg PO DAILY 06/04/19 [History] Hx Tetanus, Diphtheria Vaccination/Date Given: Yes Hx Influenza Vaccination/Date Given: No Hx Pneumococcal Vaccination/Date Given: No - Review of Systems Constitutional: No Symptoms Eyes: No Symptoms Ears, Nose, & Throat: No Symptoms Respiratory: No Symptoms Cardiac: No Symptoms Abdominal/Gastrointestinal: No Symptoms Musculoskeletal: Joint Pain (left knee) - Past Medical History Pertinent Past Medical History: Yes Neurological History: Migraines ENT History: No Pertinent History Cardiac History: No Pertinent History Respiratory History: Bronchitis, Pneumonia Endocrine Medical History: No Pertinent History Musculoskeletal History: No Pertinent History GI Medical History: GERD, Gallbladder Disease History: No Pertinent History Psycho-Social History: Anxiety, Depression Female Reproductive Disorders: No Pertinent History Other Medical History: gastroparesis - Past Surgical History Past Surgical History: Yes Neuro Surgical History: No Pertinent History Cardiac: No Pertinent History Respiratory: No Pertinent History Gastrointestinal: Appendectomy, Cholecystectomy Genitourinary: No Pertinent History Musculoskeletal: No Pertinent History Female Surgical History: Hysterectomy Other Surgical History: medtronic pain pump, pyloric stretched and dilated many times. replaced pain pump - Social History Smoking Status: Current every day smoker How long have you smoked: years Exposure to second hand smoke: Yes Drug Use: none Patient Lives Alone: No - Female History Hx Now: No - Nursing Vital Signs Nursing Vital Signs: Initial Vital Signs Temperature 98.2 F 08/01/19 13:55 Pulse Rate 67 08/01/19 13:55 Respiratory Rate 18 08/01/19 13:55 Blood Pressure 116/56 08/01/19 13:55 O2 Sat by Pulse Oximetry 100 08/01/19 13:55 Pain Scale Pain Intensity 8 - Physical Exam General Appearance: no apparent distress Eyes, Ears, Nose, Throat Exam: normal ENT inspection Neck Exam: normal inspection Knees Exam: left knee: pain, soft tissue tenderness, swelling, bilateral knee: non-tender Ankle Exam: bilateral ankle: non-tender SpO2: 100 - Course Nursing assessment & vital signs reviewed: Yes - Radiology Exams Knee X-ray Interpretation: Reviewed by me, Negative, No Fracture, No Subluxation Ordered Tests: Active Orders 24 hr Category Date Time Status KNEE (3 VIEWS) Stat Exams 08/01/19 14:13 Taken Medication Summary Discontinued Medications Generic Name Dose Route Start Last Admin Trade Name Freq PRN Reason Stop Dose Admin Ketorolac Tromethamine 60 mg 08/01/19 14:40 Toradol 30 Mg Injection IM 08/01/19 14:41 STAT ONE - Progress Progress: improved, pain not gone completely Counseled pt/family regarding: diagnosis, need for follow-up, rad results - Departure Departure Disposition: Home Clinical Impression: Strain of knee and leg, left Qualifiers: Encounter type: initial encounter Qualified Code(s): S86.912A - Strain of unspecified muscle(s) and tendon(s) at lower leg level, left leg, initial encounter Condition: Stable Critical Care Time: No Referrals: PENNY LYNN MD [Primary Care Provider] - Instructions: Knee Sprain (DC), Knee Pain (DC) Additional Instructions: SPRAINS/STRAINS/CONTUSIONS 1. Rest the affected area as much as possible for the next few days. 2. Apply ice to the affected area for 20-30 minutes at a time, several times a day. 3. If you receive an elastic wrap, wear it only while awake for comfort and support. Re-wrap the elastic wrap if it feels too tight or too loose. 4. If swelling is present, elevate the affected part above the level of the heart for at least 2 to 3 days. 5. Use splints, slings, or crutches as instructed. 6. Watch for severe swelling, coldness, numbness, and discoloration of the fingers and toes. See your family physician or return to the emergency department if any of these are noted. Discharge/Care Plan MARYBETH DELGADO was seen on 08/01/19 in the Emergency Room. The patient was counseled regarding Diagnosis,Lab results, Imaging studies, need for follow up and when to return to the Emergency Room. Prescriptions given: Discharge Note I have spoken with the patient and/or caregivers. I have explained the patient' s condition, diagnosis and treatment plan based on the information available to me at this time. I have answered the patient's and/or caregiver's questions and addressed any concerns. The patient and/or caregivers have as good understanding of the patient's diagnosis, condition and treatment plan as can be expected at this point. The vital signs have been stable. The patient's condition is stable and appropriate for discharge from the emergency department. The patient will pursue further outpatient evaluation with the primary care physician or other designated or consulting physician as outlined in the discharge instructions. The patient and/or caregivers are agreeable to this plan of care and follow-up instructions have been explained in detail. The patient and/or caregivers have received these instruction. The patient/and or caregivers are aware that any significant change in condition or worsening of symptoms should prompt an immediate return to this or the closest emergency department or call 911. MARYBETH DELGADO was seen on 08/01/19 n the Emergency Room. At that time you were treated for an emergent condition, during your visit Laboratory, Radiology and/or other procedures may have been ordered. It is very important that you follow-up with your Primary Care Physician PENNY LYNN V within the next 24-48 hours to review your Emergency Room visit and the final results of testing that was ordered. Some test results such as Urine Cultures, Blood Cultures, and other cultures if ordered will not be finalized for 24-48 hours. If you do not have a Primary Care Provider please call the medical records department at [phone] ext [phone] to obtain a copy of your results or you may sign into our patient portal to obtain these results by visiting us @ [email or web address] and completing the following steps: 1. Click on the Patient Portal link 2. Click the Patient Self Enrollment Link to complete the enrollment form and entering your 3. Once the enrollment form is completed you will receive an email with a temporary ID and password at the email address you provided. 4. Next choose a user name and password. Your user name must be at least 4 characters long and your password must be at least 4 characters long. 5. Choose a security question from the list and provide your answer to the question. If you already have signed into the Health Portal you may access your Health Care Information 13/05 by the following steps: 1. Login to our website @ [email or web address] 2. Enter your original user name and password. FAQS The [facility] Portal is an online tool that contains your Lab Results, Radiology Reports, Visit History, Discharge Instructions and Health Summary Lab and Radiology Results will not be available for 72 hours on the portal. The Portal is a secure site, passwords are encryted and URLs are re-written so they cannot be copied and pasted. You and authorized family members are the only ones who can access your Portal. Also there is a timeout feature that protects your information if you leave the Portal page open. If you have technical difficulty please use the Contact Us link on the page this will allow you to submit any questions you have regarding the Portal or you may contact the Medical Record Department at [phone] ext [phone]. Prescriptions: Naproxen 375 mg [Naprosyn 375 mg] 375 mg PO Q8H #30 tablet
[2019-08-01] MEDS ORDERED: TORAdol 30 mg Injection IM ONE (14:40)
[2019-08-01] MEDS ORDERED: TORAdol 30 mg Injection ONE (14:45)
--- NOTE | 2019-08-01 18:51 | XRAY ---
Indication: Pain following twisting injury. Comparison: None 3 views of the left knee demonstrates tiny lateral condyle bone island. No other bony, articular, or soft tissue abnormalities.
== END 2019-08-01 15:18 | disposition home or self-care (01) ==
LOC: ED 13:43
DX: S86.912A Strain of unspecified muscle(s) and tendon(s) at lower leg level, left leg, initial encounter (principal); X50.1XXA Overexertion from prolonged static or awkward postures, initial encounter; Y93.41 Activity, dancing; M79.662 Pain in left lower leg; M25.562 Pain in left knee; Z79.899 Other long term (current) drug therapy; F17.200 Nicotine dependence, unspecified, uncomplicated
CPT/HCPCS: 73562; 96372; 99284; J1885; L1830

== ENCOUNTER 2019-10-20 15:18 | Inpatient (IN) | payer OTHER ==
[2019-10-20] MEDS ORDERED: NovoLIN R SQ PRN (15:45)
[2019-10-20] MEDS: Sodium Chloride 0.9% 1000 ML 1,000 ML IV SCH ×2 (16:20→22:21)
[2019-10-20] MEDS: Zofran 4 MG/2 ML VIAL IV PRN (16:20)
[2019-10-20] MEDS: DILAUDID 2 MG INJECTION IV PRN ×3 (16:20→23:08)
[2019-10-20 16:38] LABS: Hematocrit 40.4 % (35-47); Hemoglobin 13.3 gm/dl (12.0-16.0); Mean Cell Volume 95.5 fl (78-100); Mean Corpuscular Hemoglobin 31.4 pg (26-32); Mean Corpuscular Hgb Concent. 32.9 g/dl (32-36); Mean Platelet Volume 9.9 fl (6-9.5); Platelet Count 253 K/mm3 (150-450); Red Blood Count 4.23 M/mm3 (4.1-5.4); Red Cell Distribution Width 12.6 % (11.5-14.0); White Blood Count 6.5 K/mm3 (4.0-10.5)
[2019-10-20 16:51] LABS: ALBUMIN 3.9 g/dL (3.5-5.0); ALKALINE PHOSPHATASE 104 U/L (38-126); AMYLASE 85 U/L (30-110); ANION GAP 8.7 MEQ/L (5-15); BLOOD UREA NITROGEN 11 mg/dL (7-17); CHLORIDE 108 mmol/L (98-107); Calcium 9.2 mg/dL (8.4-10.2); Carbon Dioxide 25 mmol/L (22-30); Creatinine 1 0.79 mg/dL (0.52-1.04); Glucose 87 mg/dL (74-106); LIPASE 290 U/L (23-300); Potassium 4.2 mmol/L (3.5-5.1); SGOT/AST 31 U/L (14-36); SGPT/ALT 25 U/L (0-35); SODIUM 137 mmol/L (137-145); Total Protein 7.2 g/dL (6.3-8.2)
[2019-10-20] MEDS ORDERED: ZOFRAN ODT 4 MG PO PRN (17:08)
[2019-10-20] MEDS ORDERED: MEDICATION INTERVENTION PO SCH (17:15)
[2019-10-20] MEDS: Pepcid 20 MG PO SCH (17:28)
[2019-10-20] MEDS: Cymbalta 30 MG Capsule PO SCH (17:28)
[2019-10-20] MEDS: PANCRELIPASE DR 5,000 UNIT CAP PO SCH ×2 (17:29→22:59)
[2019-10-20] MEDS ORDERED: PROTEASE PO SCH (19:00)
[2019-10-20] MEDS ORDERED: AMYLASE PO SCH (19:00)
[2019-10-20] MEDS ORDERED: LIPASE PO SCH (19:00)
[2019-10-20] MEDS: PHENERGAN 25 MG PO PRN (20:12)
[2019-10-20] MEDS ORDERED: Reglan 10 MG/2 ML IV PRN (21:15)
[2019-10-20] MEDS: Carafate 1 GM PO SCH (21:40)
[2019-10-20] MEDS ORDERED: ATARAX 25 MG PO SCH (22:00)
[2019-10-20] MEDS ORDERED: E.E.S. 200 PO SCH (22:00)
[2019-10-21 00:22] LABS: Appearance CLEAR (CLEAR); Bilirubin NEGATIVE (NEGATIVE); Blood NEGATIVE Ery/ul (0-5); Glucose NEGATIVE (NEGATIVE); Ketones NEGATIVE (NEGATIVE); Leukocyte Esterase NEGATIVE (NEGATIVE); Mucus SLIGHT /HPF (NEGATIVE); Nitrite NEGATIVE (NEGATIVE); Protein,Urine Dip NEGATIVE (Negative); Specific Gravity 1.046 (1.005-1.025); Urobilinogen NORMAL mg/dL (0-1)
[2019-10-21 00:23] LABS: Epithelial Cells RARE /HPF (FEW); WBC NONE SEEN /HPF (0-5)
[2019-10-21 02:24] LABS: Bacteria NONE SEEN /HPF (NEGATIVE)
[2019-10-21] MEDS: Sodium Chloride 0.9% 1000 ML 1,000 ML IV SCH ×3 (05:00→19:47)
[2019-10-21] MEDS: DILAUDID 2 MG INJECTION IV PRN ×8 (05:00→23:05)
[2019-10-21] MEDS: Zofran 4 MG/2 ML VIAL IV PRN ×2 (05:10→09:56)
[2019-10-21 06:39] LABS: AMYLASE 57 U/L (30-110); ANION GAP 5.4 MEQ/L (5-15); BLOOD UREA NITROGEN 9 mg/dL (7-17); CHLORIDE 111 mmol/L (98-107); Calcium 8.4 mg/dL (8.4-10.2); Carbon Dioxide 26 mmol/L (22-30); Creatinine 1 0.84 mg/dL (0.52-1.04); Glucose 96 mg/dL (74-106); LIPASE 55 U/L (23-300); SODIUM 138 mmol/L (137-145)
[2019-10-21 06:42] LABS: Hematocrit 36.2 % (35-47); Mean Cell Volume 97.6 fl (78-100); Mean Corpuscular Hemoglobin 32.3 pg (26-32); Mean Corpuscular Hgb Concent. 33.1 g/dl (32-36); Mean Platelet Volume 9.9 fl (6-9.5); Platelet Count 236 K/mm3 (150-450); Red Blood Count 3.71 M/mm3 (4.1-5.4); Red Cell Distribution Width 12.8 % (11.5-14.0); White Blood Count 4.9 K/mm3 (4.0-10.5)
[2019-10-21] MEDS: PANCRELIPASE DR 5,000 UNIT CAP PO SCH ×5 (07:43→23:04)
[2019-10-21] MEDS: E.E.S. 200 PO SCH ×4 (07:46→21:12)
[2019-10-21] MEDS: Pepcid 20 MG PO SCH (07:50)
[2019-10-21] MEDS: Carafate 1 GM PO SCH ×4 (07:50→21:12)
[2019-10-21] MEDS: Cymbalta 30 MG Capsule PO SCH (07:50)
--- NOTE | 2019-10-21 09:16 | XRAY ---
Indication: Chronic pancreatitis. Nausea and vomiting. Multiple contiguous axial images obtained through the abdomen and pelvis using 80 cc of Isovue-370 contrast only. Comparison: February 05, 2019. Lung bases again demonstrates minimal bibasilar dependent atelectasis. No infiltrate or effusion. Heart is not enlarged. Left mid abdominal wall pain pump again produces beam artifact. Noncontrasted stomach and bowel loops appear nonobstructed. Left abdomen jejunal bowel loops again demonstrates mild fluid distention with wall thickening favor enteritis. There is now mild diffuse scattered colonic fecal debris throughout including rectum. Stable nonobstructing right renal micro-calculus. Again previous appendectomy, cholecystectomy, and hysterectomy. No free fluid/air. Remaining liver, pancreas, spleen, adrenal glands, kidneys, ureters, bladder, and aorta appear unremarkable. No pathological retroperitoneal lymphadenopathy. Osseous structures intact. Stable partially visualized bilateral breast implants. Impression: 1. Again mild fluid distended jejunum with wall thickening favoring enteritis. 2. New diffuse fecal stasis without obstruction. 3. Stable nonobstructing right renal calculus. CTDI 7.56
[2019-10-21] MEDS ORDERED: NON-FORMULARY ITEM (Ranitidine Hcl [Zantac] 150 MG) PO SCH (10:00)
[2019-10-21] MEDS: Colace 100 MG PO SCH (21:12)
[2019-10-21] MEDS: PHENERGAN 25 MG PO PRN (21:17)
[2019-10-22] MEDS: Sodium Chloride 0.9% 1000 ML 1,000 ML IV SCH ×3 (01:41→15:19)
[2019-10-22] MEDS: DILAUDID 2 MG INJECTION IV PRN ×7 (02:10→21:22)
[2019-10-22] MEDS ORDERED: Hydromorphone 1 mg/ml Ampule ONE (04:04)
[2019-10-22] MEDS: Zofran 4 MG/2 ML VIAL IV PRN ×2 (04:31→14:02)
[2019-10-22] MEDS: Carafate 1 GM PO SCH ×4 (07:29→22:37)
[2019-10-22] MEDS: PANCRELIPASE DR 5,000 UNIT CAP PO SCH ×4 (07:29→20:13)
[2019-10-22] MEDS: E.E.S. 200 PO SCH ×4 (07:43→22:41)
--- NOTE | 2019-10-22 08:44 | HP ---
HISTORY OF PRESENT ILLNESS: This is a 39 year-old patient of Dr. Alvarez that was made a direct admission yesterday from the clinic. She reports that for three weeks she has had an elevated lipase, a fever on and off up to 103F with her last fever being Saturday. It has been hard to keep fluids down. She reports she is not eating solid foods. She will drink Ensure and then 30 minutes after that will have diarrhea. She reports a history of gastroparesis with an internal pain pump, chronic pancreatitis and pyloric stenosis. She sees a doctor at [facility]. She is not sure how to spell her name but something like "Jossuemirian". REVIEW OF SYSTEMS: No cough. No rhinorrhea. Otherwise review of systems is negative. MEDICATIONS: Please see the home medication sheet which I have reviewed. ALLERGIES: CODEINE. DEMEROL. MORPHINE. PAST MEDICAL HISTORY: Chronic pancreatitis. Gastroparesis. Chronic abdominal pain. Chronic pain syndrome. PAST SURGICAL HISTORY: Pain pump placement. PHYSICAL EXAMINATION: VITAL SIGNS: Temperature current 98F, temperature max 98.9F, heart rate 70, respiratory rate 20, blood pressure 111/74, weight 84.8 kg. Oxygen saturation 96% on room air. GENERAL: The patient is lying in bed a pleasant talkative lady in no acute distress. CVS: She has a regular rate and rhythm. No murmurs, gallops or rubs. CHEST: Clear to auscultation bilaterally. No crackles or wheezes. ABDOMEN: She has a well healed scar, palpable pain pump/foreign body in the left side, some mild left upper quadrant pain. No guarding. No rigidity. Normal bowel sounds. EXTREMITIES: No clubbing, cyanosis or edema. SKIN: Warm, dry and intact. ASSESSMENT AND PLAN: 1) Chronic pancreatitis. She had a CT scan done that revealed mild distended jejunum with wall thickening favoring enteritis. It said her pancreas appeared normal. Her lipase has come down from admission. She reports that she continues to have the same amount of pain. 2) Enteritis. She is on IV fluids. She has been NPO. She is now asking for diet, will advance her diet as tolerated. 3) Chronic abdominal pain. She sees and has a pain pump. 4) Chronic pain syndrome. Again appears managed by and her primary care doctor. 5) Fecal stasis seen on CT. I have ordered Colace for her.
--- NOTE | 2019-10-22 09:05 | PCM.NOTE ---
Date and Time: 10/22/19901 Subjective Assessment: Pt. notes feeling hungry, still with pain and nausea though, labs yesterday ok but started vomiting when diet advanced to thickened. - Review of Systems Constitutional: No Fever, No Chills Eyes: No Symptoms Ears, Nose, & Throat: No Symptoms Respiratory: No Cough, No Short Of Breath Cardiac: No Chest Pain, No Edema, No Syncope Abdominal/Gastrointestinal: Abdominal Pain, Nausea Genitourinary Symptoms: No Dysuria Musculoskeletal: No Back Pain, No Neck Pain Skin: No Rash Objective Exam General Appearance: no apparent distress, alert Skin Exam: normal color, warm, dry Ears, Nose, Throat Exam: normal ENT inspection, moist mucous membranes Respiratory Exam: normal breath sounds, lungs clear, No respiratory distress Cardiovascular Exam: regular rate/rhythm, normal heart sounds Gastrointestinal/Abdomen Exam: soft, tenderness (luq and epigastric) OBJECTIVE DATA Vital Signs: Vital Signs - 24 hr Temp Pulse Resp BP Pulse Ox 10/22/19 07:26 98.2 F 64 16 122/77 97 10/22/19 04:00 98.3 F 77 16 113/63 96 10/22/19 00:00 98.3 F 71 16 122/72 97 10/21/19 20:00 98.0 F 79 18 132/79 96 10/21/19 16:32 98.5 F 66 18 120/73 96 Pain Assessment - Last Documented Pain Intensity 9 Pain Scale Used 0-10 Pain Scale Intake and Output: Intake & Output 10/19/19 10/20/19 10/21/19 10/22/19 11:59 11:59 11:59 11:59 Intake Total 2492 4457 Output Total 900 4000 Balance 1592 457 Weight 84.8 kg Lab Results: Lab Results-Last 24 Hours 10/21/19 Range/Units 05:30 Hemoglobin A1c 5.08 (4.5-6.0) % Radiology Exams: Radiology Procedures Category Date Time Status ABDOMEN AND PELVIS W CONTRAST [CT] Urgent Exams 10/20/19 16:00 Completed Assessment/Plan (1) Pancreatitis Current Visit: Yes Status: Acute Assessment & Plan: re-start clear liquids, recheck labs in am Code(s): K85.90 - ACUTE PANCREATITIS WITHOUT NECROSIS OR INFECTION, UNSP (2) Chronic abdominal pain Current Visit: No Status: Acute Assessment & Plan: continue current pain management Code(s): R10.9 - UNSPECIFIED ABDOMINAL PAIN; G89.29 - OTHER CHRONIC PAIN
[2019-10-22] MEDS: Cymbalta 30 MG Capsule PO SCH (09:33)
[2019-10-22] MEDS: Pepcid 20 MG PO SCH (09:33)
[2019-10-22] MEDS: Colace 100 MG PO SCH ×2 (09:33→22:37)
[2019-10-22] MEDS: PHENERGAN 25 MG PO PRN (15:23)
[2019-10-23] MEDS: DILAUDID 2 MG INJECTION IV PRN ×8 (00:16→23:56)
[2019-10-23] MEDS: PANCRELIPASE DR 5,000 UNIT CAP PO SCH ×6 (00:19→23:57)
[2019-10-23] MEDS: PHENERGAN 25 MG PO PRN (03:10)
[2019-10-23] MEDS: Sodium Chloride 0.9% 1000 ML 1,000 ML IV SCH ×3 (03:55→18:27)
[2019-10-23 05:59] LABS: AMYLASE 44 U/L (30-110); ANION GAP 6.5 MEQ/L (5-15); BLOOD UREA NITROGEN 4 mg/dL (7-17); CHLORIDE 108 mmol/L (98-107); Calcium 8.9 mg/dL (8.4-10.2); Carbon Dioxide 27 mmol/L (22-30); Creatinine 1 0.73 mg/dL (0.52-1.04); Glucose 101 mg/dL (74-106); LIPASE 52 U/L (23-300); SODIUM 138 mmol/L (137-145)
[2019-10-23] MEDS: Cymbalta 30 MG Capsule PO SCH (08:10)
[2019-10-23] MEDS: Pepcid 20 MG PO SCH (08:11)
[2019-10-23] MEDS: Colace 100 MG PO SCH ×2 (08:11→20:53)
[2019-10-23] MEDS: Carafate 1 GM PO SCH ×4 (08:11→20:53)
[2019-10-23] MEDS: E.E.S. 200 PO SCH ×4 (08:12→20:53)
[2019-10-23 17:00] LABS: AMYLASE 48 U/L (30-110); LIPASE 68 U/L (23-300)
--- NOTE | 2019-10-23 19:32 | PCM.NOTE ---
Date and Time: 10/23/191929 Subjective Assessment: Pt. feeling better today, did well on clear liquids yesterday, feels ready to advance diet today - Review of Systems Constitutional: No Symptoms Respiratory: No Symptoms Cardiac: No Symptoms Abdominal/Gastrointestinal: Abdominal Pain, Nausea Genitourinary Symptoms: No Symptoms Musculoskeletal: No Symptoms Skin: No Symptoms Objective Exam General Appearance: no apparent distress Neurologic Exam: alert Skin Exam: normal color, warm, dry Ears, Nose, Throat Exam: normal ENT inspection Neck Exam: normal inspection Respiratory Exam: normal breath sounds Cardiovascular Exam: regular rate/rhythm Gastrointestinal/Abdomen Exam: tenderness, guarding, No distention, No rebound OBJECTIVE DATA Vital Signs: Vital Signs - 24 hr Temp Pulse Resp BP Pulse Ox 10/23/19 16:00 98.0 F 82 16 138/92 97 10/23/19 12:00 98.2 F 84 16 121/89 97 10/23/19 08:00 97.8 F 84 16 121/89 97 10/23/19 04:00 98.0 F 73 18 143/85 96 10/23/19 00:00 98.9 F 85 18 127/86 96 10/22/19 20:00 98.2 F 76 16 127/88 94 L Pain Assessment - Last Documented Pain Intensity 8 Pain Scale Used 0-10 Pain Scale Intake and Output: Intake & Output 10/21/19 10/22/19 10/23/19 10/24/19 11:59 11:59 11:59 11:59 Intake Total 2492 4817 5755 960 Output Total 900 4000 2450 600 Balance 6040 244 4980 360 Weight 84.8 kg 84.8 kg Lab Results: Lab Results-Last 24 Hours 10/23/19 10/23/19 Range/Units 04:30 14:25 Sodium 138 (137-145) mmol/L Potassium 4.0 (3.5-5.1) mmol/L Chloride 108 H (98-107) mmol/L Carbon Dioxide 27 (22-30) mmol/L Anion Gap 6.5 (5-15) MEQ/L BUN 4 L (7-17) mg/dL Creatinine 0.73 (0.52-1.04) mg/dL Estimated GFR > 60.0 ML/MIN Glucose 101 (74-106) mg/dL Calcium 8.9 (8.4-10.2) mg/dL Amylase 44 48 (30-110) U/L Lipase 52 68 (23-300) U/L Assessment/Plan (1) Pancreatitis Current Visit: Yes Status: Acute Qualifiers: Pancreatitis type: idiopathic Assessment & Plan: Will advance to full diet today, if labs remain stable and able to tolerate diet will d/c to home tomorrow. Code(s): K85.90 - ACUTE PANCREATITIS WITHOUT NECROSIS OR INFECTION, UNSP (2) Chronic abdominal pain Current Visit: No Status: Acute Code(s): R10.9 - UNSPECIFIED ABDOMINAL PAIN ; G89.29 - OTHER CHRONIC PAIN
[2019-10-24] MEDS: DILAUDID 2 MG INJECTION IV PRN ×2 (03:33→05:50)
[2019-10-24] MEDS: Sodium Chloride 0.9% 1000 ML 1,000 ML IV SCH ×2 (05:33)
[2019-10-24 08:44] VITALS: BP 142/72; PULSE 64; O2SAT 96
== END 2019-10-24 07:55 | disposition home or self-care (01) | DRG 440 ==
LOC: OBSVTOIN 15:30 → MED SURG 15:30
PROVIDERS: ADMIT Family Medicine; ATTEND Family Medicine
DX: K86.1 Other chronic pancreatitis (principal); K52.9 Noninfective gastroenteritis and colitis, unspecified; R10.9 Unspecified abdominal pain; G89.4 Chronic pain syndrome; Z79.899 Other long term (current) drug therapy
CPT/HCPCS: 36415; 74177; 80048; 80053; 81001; 82150; 83036; 83690; 85027; J1170; J2405; Q0162; A9270-GY

== ENCOUNTER 2019-12-21 17:56 | Emergency (ER) | payer OTHER ==
--- NOTE | 2019-12-21 18:05 | ERPHSYRPT ---
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 Patient presents with 1 day history of worsening rash/hives. It is located on her lower abdominal wall hips thighs and tracking up her back laterally. Patient has seen a camera prototyping engineer for this condition and there has been no specific diagnosis. Patient has gastroparesis and is taking Zantac chronically. She also is on Claritin as well. Patient states that oral Benadryl does not absorb because she is on a medication that blocks the ability for this medication to be absorbed. Patient does not have shortness of breath, chest pain, or abdominal pain. Timing/Duration: yesterday Severity: mild Associated Symptoms: rash Allergies/Adverse Reactions: codeine Allergy (Intermediate, Verified 08/01/19 13:59) Hives meperidine [From Demerol] Allergy (Intermediate, Verified 08/01/19 13:59) morphine Allergy (Intermediate, Verified 08/01/19 13:59) Hives Home Medications: Lipase/Protease/Amylase [Creon Dr 24,000 Units Capsule] 2 cap PO 5XD 08/23/18 [ History] Ranitidine HCl [Zantac] 150 mg PO DAILY 08/23/18 [History] Linaclotide [Linzess] 290 mcg PO DAILY 02/05/19 [History] Sucralfate 1 gm PO QID 02/05/19 [History] Ondansetron HCl [Zofran] 8 mg PO Q6H PRN PRN 02/17/19 [History] Promethazine HCl 25 mg [Phenergan 25 mg] 25 mg PO Q8H PRN PRN 02/17/19 [ History] hydrOXYzine HCL [Hydroxyzine HCl] 10 mg PO DAILY 06/04/19 [History] Duloxetine HCl 30 mg [Cymbalta 30 MG Capsule] 60 mg PO DAILY 10/20/19 [ History] Bupropion HCl 150 mg Sr [Wellbutrin SR 150 MG] 150 mg PO DAILY 12/21/19 [ History] Hx Tetanus, Diphtheria Vaccination/Date Given: Yes Hx Influenza Vaccination/Date Given: No Hx Pneumococcal Vaccination/Date Given: No - Review of Systems Constitutional: No Symptoms Eyes: No Symptoms Ears, Nose, & Throat: No Symptoms Respiratory: No Symptoms Cardiac: No Symptoms Abdominal/Gastrointestinal: No Symptoms Genitourinary Symptoms: No Symptoms Musculoskeletal: No Symptoms Skin: No Symptoms Neurological: No Symptoms Psychological: No Symptoms Endocrine: No Symptoms Hematologic/Lymphatic: No Symptoms Immunological/Allergic: No Symptoms All Other Systems: Reviewed and Negative - Past Medical History Pertinent Past Medical History: Yes Neurological History: No Pertinent History ENT History: No Pertinent History Cardiac History: No Pertinent History Respiratory History: No Pertinent History Endocrine Medical History: No Pertinent History Musculoskeletal History: Other GI Medical History: GERD, Gallbladder Disease History: No Pertinent History Psycho-Social History: Anxiety, Depression Female Reproductive Disorders: No Pertinent History Other Medical History: GASTROPARESIS AND PYLORIC STENOSIS, CHRONIC PANCREATITIS. PATIENT HAS INTERNAL PAIN PUMP FOR STOMACH PAIN. HAS TO HAVE SURGERY 10/01/19 FOR REPLACEMENT OF CATHETER OF PUMP DUE TO KINKING. - Past Surgical History Past Surgical History: Yes Neuro Surgical History: No Pertinent History Cardiac: No Pertinent History Respiratory: No Pertinent History Gastrointestinal: Appendectomy, Cholecystectomy Genitourinary: No Pertinent History Musculoskeletal: No Pertinent History Female Surgical History: Hysterectomy Other Surgical History: medtronic pain pump, pyloric stretched and dilated many times. replaced pain pump - Social History Smoking Status: Current every day smoker How long have you smoked: years Exposure to second hand smoke: Yes Drug Use: none Patient Lives Alone: No - Nursing Vital Signs Nursing Vital Signs: Initial Vital Signs Temperature 98.0 F 12/21/19 17:59 Pulse Rate 90 12/21/19 17:59 Respiratory Rate 18 12/21/19 17:59 Blood Pressure 123/77 12/21/19 17:59 O2 Sat by Pulse Oximetry 95 12/21/19 17:59 Pain Scale Pain Intensity 0 - Physical Exam General Appearance: no apparent distress, alert, anxiety Eye Exam: PERRL/EOMI, eyes nml inspection Ears, Nose, Throat Exam: normal ENT inspection, moist mucous membranes Neck Exam: normal inspection, non-tender, supple, full range of motion Respiratory Exam: normal breath sounds, lungs clear, airway intact, No chest tenderness, No respiratory distress, No rhonchi, No wheezing, No stridor Cardiovascular Exam: regular rate/rhythm, normal heart sounds, normal peripheral pulses Gastrointestinal/Abdomen Exam: soft, normal bowel sounds, No tenderness Pelvic Exam: not done Rectal Exam: not done Back Exam: normal inspection, normal range of motion, CVA tenderness Extremity Exam: normal inspection, normal range of motion, pelvis stable Neurologic Exam: alert, oriented x 3, cooperative, master sheet clerk II-XII nml as tested Skin Exam: rash (Coalescing slightly pink raised irregular bordered rash in large patches in her lower abdomen bilateral hips inner aspect of both thighs and tracking up laterally onto her chest wall.) Lymphatic Exam: No adenopathy O2 Delivery: Room Air - Course Nursing assessment & vital signs reviewed: Yes - Progress Progress: unchanged Counseled pt/family regarding: diagnosis, need for follow-up - Departure Departure Disposition: Home Clinical Impression: Hives Condition: Stable Critical Care Time: No Referrals: KAILEY VICTORIA [Primary Care Provider] - Additional Instructions: Take all your medication as prescribed. Follow-up with your primary care doctor for further management. Prescriptions: Prednisone 10 mg [Deltasone 10 mg] 10 mg PO TID #12 tablet
[2019-12-21 18:06] VITALS: BP 123/77; PULSE 90; O2SAT 100
[2019-12-21] MEDS ORDERED: BENADRYL 50 MG/ML IM ONE (18:21)
[2019-12-21] MEDS ORDERED: solu-MEDROL 125 MG IM ONE (18:21)
[2019-12-21] MEDS ORDERED: solu-MEDROL 125 MG ONE (18:30)
[2019-12-21] MEDS ORDERED: BENADRYL 50 MG/ML ONE (18:30)
== END 2019-12-21 18:54 | disposition home or self-care (01) ==
LOC: ED 17:56
DX: L50.9 Urticaria, unspecified (principal)
CPT/HCPCS: 96372; 99283; J1200; J2930

== ENCOUNTER 2020-04-21 08:47 | Inpatient (IN) | payer OTHER ==
[2020-04-21] MEDS: DILAUDID 2 MG INJECTION IV PRN ×2 (17:59→21:03)
[2020-04-21] MEDS: Sodium Chloride 0.9% 1000 ML 1,000 ML IV SCH (18:00)
[2020-04-21] MEDS: Zofran 4 MG/2 ML VIAL IV PRN ×2 (18:00→21:52)
[2020-04-21 18:14] LABS: Hematocrit 38.1 % (35-47); Hemoglobin 12.6 gm/dl (12.0-16.0); Mean Cell Volume 95.5 fl (78-100); Mean Corpuscular Hemoglobin 31.6 pg (26-32); Mean Corpuscular Hgb Concent. 33.1 g/dl (32-36); Platelet Count 214 K/mm3 (150-450); Red Blood Count 3.99 M/mm3 (4.1-5.4); Red Cell Distribution Width 12.3 % (11.5-14.0)
[2020-04-21 18:24] LABS: ALBUMIN 3.9 g/dL (3.5-5.0); ALKALINE PHOSPHATASE 75 U/L (38-126); ANION GAP 8.7 MEQ/L (5-15); BLOOD UREA NITROGEN 14 mg/dL (7-17); CHLORIDE 107 mmol/L (98-107); Carbon Dioxide 26 mmol/L (22-30); Creatinine 1 0.86 mg/dL (0.52-1.04); Glucose 93 mg/dL (74-106); LIPASE 92 U/L (23-300); Potassium 4.1 mmol/L (3.5-5.1); SGOT/AST 23 U/L (14-36); SGPT/ALT 17 U/L (0-35); SODIUM 138 mmol/L (137-145); Total Protein 6.8 g/dL (6.3-8.2)
[2020-04-21] MEDS: Pepcid 20 MG PO SCH (21:04)
[2020-04-21] MEDS: CLARITIN 10 MG PO SCH (21:04)
[2020-04-21] MEDS: Carafate 1 GM PO SCH (21:04)
[2020-04-21] MEDS ORDERED: NON-FORMULARY ITEM PO SCH (22:00)
[2020-04-22] MEDS: MAALOX ES 30 ML UNIT DOSE PO PRN ×2 (00:25→17:27)
[2020-04-22] MEDS: DILAUDID 2 MG INJECTION IV PRN ×6 (00:26→21:39)
[2020-04-22] MEDS: Sodium Chloride 0.9% 1000 ML 1,000 ML IV SCH ×3 (00:47→21:36)
[2020-04-22 05:39] LABS: Hematocrit 38.1 % (35-47); Hemoglobin 12.4 gm/dl (12.0-16.0); Mean Cell Volume 96.9 fl (78-100); Mean Corpuscular Hemoglobin 31.6 pg (26-32); Mean Corpuscular Hgb Concent. 32.5 g/dl (32-36); Mean Platelet Volume 10.2 fl (7.5-11.0); Platelet Count 201 K/mm3 (150-450); Red Blood Count 3.93 M/mm3 (4.1-5.4); Red Cell Distribution Width 12.4 % (11.5-14.0); White Blood Count 5.3 K/mm3 (4.0-10.5)
[2020-04-22 05:42] LABS: ALBUMIN 3.3 g/dL (3.5-5.0); ALKALINE PHOSPHATASE 71 U/L (38-126); ANION GAP 5.1 MEQ/L (5-15); BLOOD UREA NITROGEN 10 mg/dL (7-17); CHLORIDE 112 mmol/L (98-107); Calcium 8.2 mg/dL (8.4-10.2); Carbon Dioxide 26 mmol/L (22-30); Creatinine 1 0.82 mg/dL (0.52-1.04); Glucose 99 mg/dL (74-106); LIPASE 51 U/L (23-300); SGOT/AST 65 U/L (14-36); SGPT/ALT 37 U/L (0-35); SODIUM 138 mmol/L (137-145); Total Protein 5.9 g/dL (6.3-8.2)
[2020-04-22] MEDS: Carafate 1 GM PO SCH ×4 (08:17→21:41)
[2020-04-22] MEDS: TYLENOL EXTRA STRENGTH 500 MG PO PRN (08:21)
[2020-04-22] MEDS: Zofran 4 MG/2 ML VIAL IV PRN ×2 (08:21→13:50)
--- NOTE | 2020-04-22 08:39 | XRAY ---
Indication: Pancreatitis, dehydration, and vomiting. Multiple contiguous axial images obtained through the abdomen and pelvis using 80 cc Isovue 370 contrast only. Comparison: October 20, 2019. Lung bases again demonstrates bibasilar dependent atelectasis without infiltrate or effusion. Heart is not enlarged. Again partially visualized bilateral breast implants. Left abdominal wall pain pump again produces beam artifact. Noncontrasted stomach and bowel loops remain nonobstructed. Jejunal bowel loops again demonstrates mild circumferential wall thickening, possible enteritis in the right clinical setting. No free fluid/air. Stable nonobstructing right renal micro-calculus, appendectomy, cholecystectomy, and hysterectomy. Remaining liver, pancreas, spleen, adrenal glands, kidneys, ureters, bladder, and aorta appear unremarkable. No pathologic retroperitoneal lymphadenopathy. Osseous structures intact. No ventral inguinal hernias. Impression: 1. Again mild jejunal bowel wall thickening. Rule out enteritis. 2. Stable nonobstructing right renal micro-calculus. 3. Remaining CT abdomen/pelvis with contrast exam is negative.
[2020-04-22] MEDS ORDERED: Ventolin Hfa MDI IH PRN (08:54)
[2020-04-22] MEDS ORDERED: NON-FORMULARY ITEM (Prochlorperazine Maleate 10 Mg [Compazine 10 Mg] 10 MG) PO PRN (08:54)
[2020-04-22] MEDS ORDERED: VENTOLIN COMMON CANISTER IH PRN (08:58)
[2020-04-22] MEDS ORDERED: MEDICATION INTERVENTION PO SCH ×2 (09:15)
[2020-04-22] MEDS: CLARITIN 10 MG PO SCH ×2 (09:39→21:42)
[2020-04-22] MEDS: Cymbalta 30 MG Capsule PO SCH (09:39)
[2020-04-22] MEDS: Protonix 40MG Tablet PO SCH (09:39)
[2020-04-22] MEDS: Pepcid 20 MG PO SCH ×2 (09:39→21:41)
[2020-04-22] MEDS ORDERED: DULOXETINE HCL PO SCH (10:00)
[2020-04-22] MEDS ORDERED: PROTONIX 40 MG IV IV SCH ×2 (10:00)
[2020-04-22] MEDS ORDERED: OMEPRAZOLE 40 MG PO SCH (10:00)
[2020-04-22] MEDS ORDERED: LIPASE PO SCH (11:30)
[2020-04-22] MEDS ORDERED: PROTEASE PO SCH (11:30)
[2020-04-22] MEDS ORDERED: AMYLASE PO SCH (11:30)
[2020-04-22] MEDS: PHENERGAN 25 MG PO PRN (17:18)
[2020-04-22] MEDS: Compazine 5 MG PO PRN (21:48)
[2020-04-22] MEDS ORDERED: GUANFACINE HCL 1 MG PO SCH (22:00)
[2020-04-23] MEDS: Zofran 4 MG/2 ML VIAL IV PRN ×2 (01:15→15:49)
[2020-04-23] MEDS: DILAUDID 2 MG INJECTION IV PRN ×7 (01:15→23:26)
[2020-04-23] MEDS: Sodium Chloride 0.9% 1000 ML 1,000 ML IV SCH ×3 (04:02→17:22)
[2020-04-23 07:14] LABS: Hematocrit 38.6 % (35-47); Hemoglobin 12.5 gm/dl (12.0-16.0); Mean Cell Volume 98.2 fl (78-100); Mean Corpuscular Hemoglobin 31.8 pg (26-32); Mean Corpuscular Hgb Concent. 32.4 g/dl (32-36); Mean Platelet Volume 10.6 fl (7.5-11.0); Platelet Count 211 K/mm3 (150-450); Red Blood Count 3.93 M/mm3 (4.1-5.4); Red Cell Distribution Width 12.4 % (11.5-14.0); White Blood Count 5.3 K/mm3 (4.0-10.5)
[2020-04-23 07:23] LABS: ALBUMIN 3.4 g/dL (3.5-5.0); ALKALINE PHOSPHATASE 71 U/L (38-126); ANION GAP 6.9 MEQ/L (5-15); BLOOD UREA NITROGEN 4 mg/dL (7-17); CHLORIDE 110 mmol/L (98-107); Calcium 8.9 mg/dL (8.4-10.2); Carbon Dioxide 29 mmol/L (22-30); Creatinine 1 0.93 mg/dL (0.52-1.04); Glucose 93 mg/dL (74-106); LIPASE 59 U/L (23-300); Potassium 4.5 mmol/L (3.5-5.1); SGOT/AST 38 U/L (14-36); SGPT/ALT 39 U/L (0-35); SODIUM 142 mmol/L (137-145); Total Protein 6.1 g/dL (6.3-8.2)
[2020-04-23] MEDS: Carafate 1 GM PO SCH ×4 (07:48→21:08)
[2020-04-23] MEDS: Compazine 5 MG PO PRN ×2 (08:09→23:27)
[2020-04-23] MEDS: PATIENT OWN MEDICATION PO SCH ×6 (08:10→22:20)
[2020-04-23] MEDS: Cymbalta 30 MG Capsule PO SCH (09:40)
[2020-04-23] MEDS: CLARITIN 10 MG PO SCH ×2 (09:40→21:08)
[2020-04-23] MEDS: Protonix 40MG Tablet PO SCH (09:40)
[2020-04-23] MEDS: Pepcid 20 MG PO SCH ×2 (09:40→21:08)
[2020-04-23] MEDS: PHENERGAN 25 MG PO PRN ×2 (10:40→19:36)
[2020-04-23] MEDS: MAALOX ES 30 ML UNIT DOSE PO PRN (15:57)
[2020-04-23] MEDS: TYLENOL EXTRA STRENGTH 500 MG PO PRN (22:19)
[2020-04-24] MEDS: Sodium Chloride 0.9% 1000 ML 1,000 ML IV SCH ×3 (01:00→17:40)
[2020-04-24] MEDS: DILAUDID 2 MG INJECTION IV PRN ×6 (05:09→21:57)
[2020-04-24] MEDS: PHENERGAN 25 MG PO PRN ×2 (05:09→15:12)
[2020-04-24 05:55] LABS: Hematocrit 37.9 % (35-47); Hemoglobin 12.2 gm/dl (12.0-16.0); Mean Cell Volume 97.7 fl (78-100); Mean Corpuscular Hemoglobin 31.4 pg (26-32); Mean Corpuscular Hgb Concent. 32.2 g/dl (32-36); Mean Platelet Volume 10.5 fl (7.5-11.0); Platelet Count 202 K/mm3 (150-450); Red Blood Count 3.88 M/mm3 (4.1-5.4); Red Cell Distribution Width 12.1 % (11.5-14.0); White Blood Count 5.1 K/mm3 (4.0-10.5)
[2020-04-24 06:06] LABS: ALBUMIN 3.4 g/dL (3.5-5.0); ALKALINE PHOSPHATASE 72 U/L (38-126); ANION GAP 5.8 MEQ/L (5-15); BLOOD UREA NITROGEN 3 mg/dL (7-17); CHLORIDE 109 mmol/L (98-107); Calcium 8.8 mg/dL (8.4-10.2); Carbon Dioxide 30 mmol/L (22-30); Creatinine 1 0.96 mg/dL (0.52-1.04); Glucose 88 mg/dL (74-106); LIPASE 50 U/L (23-300); SGOT/AST 29 U/L (14-36); SGPT/ALT 32 U/L (0-35); SODIUM 141 mmol/L (137-145); Total Protein 5.9 g/dL (6.3-8.2)
[2020-04-24] MEDS: Carafate 1 GM PO SCH ×4 (06:58→21:07)
[2020-04-24] MEDS: PATIENT OWN MEDICATION PO SCH ×6 (06:58→22:03)
[2020-04-24] MEDS: Compazine 5 MG PO PRN (08:29)
--- NOTE | 2020-04-24 08:49 | PCM.NOTE ---
Date and Time: 04/24/20 0847 Subjective Assessment: patient reports she is unable to eat, feels like things are getting caught in her throat, even fluids are difficult. she has no vomiting Objective Exam General Appearance: no apparent distress Neurologic Exam: alert, oriented x 3 Respiratory Exam: normal breath sounds, lungs clear, No respiratory distress Cardiovascular Exam: regular rate/rhythm, normal heart sounds Gastrointestinal/Abdomen Exam: soft, normal bowel sounds, No tenderness, No distention Extremity Exam: normal inspection, normal range of motion OBJECTIVE DATA Vital Signs: Vital Signs - 24 hr Temp Pulse Resp BP Pulse Ox 04/24/20 07:51 98.1 F 60 14 133/73 96 04/24/20 04:00 98.3 F 66 16 126/80 96 04/23/20 23:55 98.8 F 71 18 122/68 97 04/23/20 19:50 98.6 F 70 17 131/85 98 04/23/20 15:58 98.1 F 67 16 110/61 97 04/23/20 11:43 98.5 F 68 16 141/87 100 Pain Assessment - Last Documented Pain Intensity 7 Pain Scale Used 0-10 Pain Scale Intake and Output: Intake & Output 04/21/20 04/22/20 04/23/20 04/24/20 11:59 11:59 11:59 11:59 Intake Total 1423 5671 4558 Output Total 600 3000 2500 Balance 823 2671 2058 Weight 84.1 kg Lab Results: Lab Results-Last 24 Hours 04/24/20 04/24/20 Range/Units 05:10 05:10 WBC 5.1 (4.0-10.5) K/mm3 RBC 3.88 L (4.1-5.4) M/mm3 Hgb 12.2 (12.0-16.0) gm/dl Hct 37.9 (35-47) % MCV 97.7 (78-100) fl MCH 31.4 (26-32) pg MCHC 32.2 (32-36) g/dl RDW 12.1 (11.5-14.0) % Plt Count 202 (150-450) K/mm3 MPV 10.5 (7.5-11.0) fl Sodium 141 (137-145) mmol/L Potassium 4.0 (3.5-5.1) mmol/L Chloride 109 H (98-107) mmol/L Carbon Dioxide 30 (22-30) mmol/L Anion Gap 5.8 (5-15) MEQ/L BUN 3 L (7-17) mg/dL Creatinine 0.96 (0.52-1.04) mg/dL Estimated GFR > 60.0 ML/MIN Glucose 88 (74-106) mg/dL Calcium 8.8 (8.4-10.2) mg/dL Total Bilirubin 0.30 (0.2-1.3) mg/dL AST 29 (14-36) U/L ALT 32 (0-35) U/L Alkaline Phosphatase 72 (38-126) U/L Serum Total Protein 5.9 L (6.3-8.2) g/dL Albumin 3.4 L (3.5-5.0) g/dL Lipase 50 (23-300) U/L Assessment/Plan (1) Dysphagia Current Visit: Yes Status: Acute Assessment & Plan: consult surgery for consideration of EGD with possible dilation, hx gastroparesis with electronic pump placement. has had dilation in the past but no longer seeing Dr Bloom who did her last dilation over a year ago Code(s): R13.10 - DYSPHAGIA, UNSPECIFIED (2) Pancreatitis Current Visit: No Status: Acute Assessment & Plan: enzymes are normal Code(s): K85.90 - ACUTE PANCREATITIS WITHOUT NECROSIS OR INFECTION, UNSP (3) Gastroparalysis Current Visit: No Status: Acute Code(s): K31.84 - GASTROPARESIS (4) Chronic abdominal pain Current Visit: No Status: Acute Code(s): R10.9 - UNSPECIFIED ABDOMINAL PAIN; G89.29 - OTHER CHRONIC PAIN
[2020-04-24] MEDS: Cymbalta 30 MG Capsule PO SCH (09:51)
[2020-04-24] MEDS: CLARITIN 10 MG PO SCH ×2 (09:51→21:07)
[2020-04-24] MEDS: Pepcid 20 MG PO SCH ×2 (09:52→21:06)
[2020-04-24] MEDS: Protonix 40MG Tablet PO SCH (09:52)
[2020-04-24] MEDS: TYLENOL EXTRA STRENGTH 500 MG PO PRN (09:57)
[2020-04-24] MEDS: Zofran 4 MG/2 ML VIAL IV PRN ×2 (11:45→20:06)
[2020-04-24] MEDS: MAALOX ES 30 ML UNIT DOSE PO PRN (16:03)
[2020-04-24] MEDS ORDERED: DULCOLAX 5 MG PO PRN (17:18)
[2020-04-24] MEDS ORDERED: Miralax Powder 17GM PACKET ONE (17:29)
[2020-04-25] MEDS: DILAUDID 2 MG INJECTION IV PRN ×5 (01:15→13:44)
[2020-04-25] MEDS: PHENERGAN 25 MG PO PRN (01:15)
[2020-04-25] MEDS: Sodium Chloride 0.9% 1000 ML 1,000 ML IV SCH ×2 (03:20→10:00)
[2020-04-25] MEDS: TYLENOL EXTRA STRENGTH 500 MG PO PRN ×2 (03:26→12:09)
[2020-04-25] MEDS: MAALOX ES 30 ML UNIT DOSE PO PRN (03:31)
[2020-04-25 05:14] LABS: Absolute Neutrophil Ct (ANC) 2.47 (1.4-6.9); BASOPHIL % 0.4 % (0.0-0.4); Basophil (Absolute #) 0.02 (0-0.4); Eosinophil % 5.4 % (0.00-5.0); Hemoglobin 12.1 gm/dl (12.0-16.0); Lymphocytes % 39.6 % (24.0-44.0); Mean Cell Volume 96.1 fl (78-100); Mean Corpuscular Hemoglobin 31.4 pg (26-32); Mean Corpuscular Hgb Concent. 32.7 g/dl (32-36); Mean Platelet Volume 10.2 fl (7.5-11.0); Monocyte (Absolute #) 0.56 (0.0-1.3); Monocytes % 10.1 % (0.0-12.0); Neutrophil % 44.5 % (36.0-66.0); Platelet Count 185 K/mm3 (150-450); Red Blood Count 3.85 M/mm3 (4.1-5.4); Red Cell Distribution Width 12.1 % (11.5-14.0); White Blood Count 5.6 K/mm3 (4.0-10.5)
[2020-04-25 05:45] LABS: ALBUMIN 3.4 g/dL (3.5-5.0); ALKALINE PHOSPHATASE 72 U/L (38-126); AMYLASE < 30 U/L (30-110); BLOOD UREA NITROGEN 4 mg/dL (7-17); CHLORIDE 108 mmol/L (98-107); Calcium 8.5 mg/dL (8.4-10.2); Carbon Dioxide 29 mmol/L (22-30); Creatinine 1 0.96 mg/dL (0.52-1.04); Glucose 99 mg/dL (74-106); LIPASE 37 U/L (23-300); SGOT/AST 29 U/L (14-36); SGPT/ALT 31 U/L (0-35); SODIUM 140 mmol/L (137-145)
[2020-04-25] MEDS: PATIENT OWN MEDICATION PO SCH ×3 (07:26→16:14)
[2020-04-25] MEDS: Carafate 1 GM PO SCH ×3 (07:26→16:14)
[2020-04-25] MEDS: Zofran 4 MG/2 ML VIAL IV PRN ×2 (07:35→12:09)
[2020-04-25] MEDS ORDERED: Sodium Chloride 0.9% 1000 ML 1,000 ML IV SCH (08:00)
--- NOTE | 2020-04-25 08:20 | PCM.NOTE ---
Date and Time: 04/25/20817 Subjective Assessment: patient states her abdominal pain is worse today, states she vomited this am in spite of being npo for egd. Objective Exam General Appearance: no apparent distress, alert Respiratory Exam: normal breath sounds, lungs clear, No respiratory distress Cardiovascular Exam: regular rate/rhythm, normal heart sounds Gastrointestinal/Abdomen Exam: soft, tenderness, No mass OBJECTIVE DATA Vital Signs: Vital Signs - 24 hr Temp Pulse Resp BP Pulse Ox 04/25/20 07:38 98.1 F 75 16 116/58 95 04/25/20 07:26 98.0 F 68 16 128/73 97 04/25/20 04:00 98.0 F 68 16 128/73 97 04/24/20 23:37 98.4 F 73 16 149/71 99 04/24/20 19:53 98.3 F 71 16 118/71 96 04/24/20 16:00 98.4 F 62 14 135/90 97 04/24/20 12:00 98.6 F 71 12 140/84 97 Pain Assessment - Last Documented Pain Intensity 10 Pain Scale Used 0-10 Pain Scale Intake and Output: Intake & Output 04/22/20 04/23/20 04/24/20 04/25/20 11:59 11:59 11:59 11:59 Intake Total 1423 5671 4558 2728 Output Total 600 3000 2500 4425 Balance 823 1181 2058 -1697 Weight 84.1 kg 84.1 kg Lab Results: Lab Results-Last 24 Hours 04/25/20 04/25/20 Range/Units 05:05 05:05 WBC 5.6 (4.0-10.5) K/mm3 RBC 3.85 L (4.1-5.4) M/mm3 Hgb 12.1 (12.0-16.0) gm/dl Hct 37.0 (35-47) % MCV 96.1 (78-100) fl MCH 31.4 (26-32) pg MCHC 32.7 (32-36) g/dl RDW 12.1 (11.5-14.0) % Plt Count 185 (150-450) K/mm3 MPV 10.2 (7.5-11.0) fl Gran % 44.5 (36.0-66.0) % Eos # (Auto) 0.30 (0-0.5) Absolute Lymphs (auto) 2.20 (1.0-4.6) Absolute Monos (auto) 0.56 (0.0-1.3) Lymphocytes % 39.6 (24.0-44.0) % Monocytes % 10.1 (0.0-12.0) % Eosinophils % 5.4 H (0.00-5.0) % Basophils % 0.4 (0.0-0.4) % Absolute Granulocytes 2.47 (1.4-6.9) Basophils # 0.02 (0-0.4) Sodium 140 (137-145) mmol/L Potassium 4.0 (3.5-5.1) mmol/L Chloride 108 H (98-107) mmol/L Carbon Dioxide 29 (22-30) mmol/L Anion Gap 7.0 (5-15) MEQ/L BUN 4 L (7-17) mg/dL Creatinine 0.96 (0.52-1.04) mg/dL Estimated GFR > 60.0 ML/MIN Glucose 99 (74-106) mg/dL Calcium 8.5 (8.4-10.2) mg/dL Total Bilirubin 0.20 (0.2-1.3) mg/dL AST 29 (14-36) U/L ALT 31 (0-35) U/L Alkaline Phosphatase 72 (38-126) U/L Serum Total Protein 6.0 L (6.3-8.2) g/dL Albumin 3.4 L (3.5-5.0) g/dL Amylase < 30 L (30-110) U/L Lipase 37 (23-300) U/L Assessment/Plan (1) Dysphagia Current Visit: Yes Status: Acute Assessment & Plan: to have EGD via surgery for possible dilation Code(s): R13.10 - DYSPHAGIA, UNSPECIFIED (2) Pancreatitis Current Visit: No Status: Acute Assessment & Plan: labs normal, has a chronic pancreatitis component so if pain persists after EGD discussed she will need to be NPO again to allow gut rest Code(s): K85.90 - ACUTE PANCREATITIS WITHOUT NECROSIS OR INFECTION, UNSP (3) Gastroparalysis Current Visit: No Status: Acute Code(s): K31.84 - GASTROPARESIS (4) Chronic abdominal pain Current Visit: No Status: Acute Code(s): R10.9 - UNSPECIFIED ABDOMINAL PAIN; G89.29 - OTHER CHRONIC PAIN
--- NOTE | 2020-04-25 09:07 | CONS ---
CONSULT DATE: 04/24/2020 REASON FOR CONSULT: Dysphagia now however was admitted with abdominal pain. HISTORY: The patient is a 39 year-old female with a complex medical history including chronic pancreatitis, gastroparesis, established in [place] and has a pain pump. She also has had dysphagia with what sounds like esophageal stricture dilated one to two years ago by Dr. Bloom for the patient. She is having worsening abdominal pain not relieved by her usual pain regimen. She was admitted to the hospital with chronic pancreatitis. The pain is somewhat better. However with eating solid food she has severe pain. She has pain in her esophagus. She feels like things are getting stuck. She is handling secretions and keeping liquids down. However, her esophagus is painful. PAST MEDICAL HISTORY: As above. PAST SURGICAL HISTORY: Includes pain pump insertion as well as breast surgery, EGD with dilation one to two years ago. FAMILY HISTORY: Denies cancer. SOCIAL HISTORY: Prior smoker, not actively smoking. No alcohol. MEDICATIONS: Medications reviewed. ALLERGIES: Allergies reviewed. PHYSICAL EXAMINATION: No acute distress. HEENT: Sclera nonicteric. NECK: Symmetric. No mass. CHEST: Nonlabored respirations. HEART: Regular rate and rhythm. ABDOMEN: Nondistended, soft, nontender to palpation. There is a scar with her pain pump. EXTREMITIES: No edema. Moving all extremities. NEURO: Appropriate mood and affect. LAB DATA AND TESTS: LABS: White count 5.1, hemoglobin 12.2, PLT 202,000. Sodium 141, potassium 4.0, chloride 109, carbon dioxide 30, BUN 3, creatinine 0.96, glucose 88, bilirubin 0.3, AST 29, ALT 32, alk phos 72, lipase 50. Imaging: CT abdomen and pelvis 04/21/2020 artifact due to pain pump, very mild jejunal wall thickening, nonobstructing right renal calculus. ASSESSMENT AND PLAN: The patient is a 39 year-old female with above stated medical history and chronic pancreatitis with pain pump insertion and also with dysphagia and history of dilatation in the past. At this point I would recommend EGD possible dilation on 04/25/[address] Jose F Oh.
[2020-04-25] MEDS: Protonix 40MG Tablet PO SCH (09:14)
[2020-04-25] MEDS: Cymbalta 30 MG Capsule PO SCH (09:15)
[2020-04-25] MEDS: CLARITIN 10 MG PO SCH (09:15)
[2020-04-25] MEDS: Pepcid 20 MG PO SCH (09:16)
[2020-04-25] MEDS ORDERED: Ketamine HCl 50 MG/ML ONE (09:46)
[2020-04-25] MEDS ORDERED: DIPRIVAN 200 MG/20 ML IV ONE (09:46)
[2020-04-25] MEDS ORDERED: Miralax Powder 17GM PACKET PO SCH (10:00)
[2020-04-25 14:05] VITALS: BP 132/71; PULSE 66; O2SAT 99
[2020-04-25] MEDS: Compazine 5 MG PO PRN (16:15)
--- NOTE | 2020-04-25 16:20 | PCM.DS ---
Discharge Summary Date of Admission: 04/24/20 08:47 Admitting Physician: KAILEY VICTORIA Consults: Consults on Case 04/24/20 08:46 Consult Surgery ROUTINE Primary Care Provider: KAILEY VICTORIA Allergies Allergies codeine Allergy (Intermediate, Verified 04/21/20 17:59) Hives meperidine [From Demerol] Allergy (Intermediate, Verified 04/21/20 17:59) morphine Allergy (Intermediate, Verified 04/21/20 17:59) [facility] Summary - Hospital Course Hospital Course: patient was admitted with acute on chronic pancreatitis, improved with treatment but had swallowing difficulty, had egd with dilation by Dr Aiken and was tolerating po and requesting discharge following treatment - Vitals & Intake/Output Vital Signs: Vital Signs Temperature 98.5 F 04/25/20 14:00 Pulse Rate 66 04/25/20 14:00 Respiratory Rate 18 04/25/20 14:00 Blood Pressure 132/71 04/25/20 14:00 O2 Sat by Pulse Oximetry 99 04/25/20 14:00 Intake & Output: Intake & Output 04/23/20 04/24/20 04/25/20 04/26/20 11:59 11:59 11:59 11:59 Intake Total 5606 4558 2728 Output Total 0771 3654 4498 Balance 2679 9731 -169 Weight 84.1 kg - Lab Result Diagrams: 04/25/20 05:05 04/25/20 05:05 Lab Results-Last 24 Hrs: Lab Results-Last 24 Hours 04/25/20 04/25/20 Range/Units 05:05 05:05 WBC 5.6 (4.0-10.5) K/mm3 RBC 3.85 L (4.1-5.4) M/mm3 Hgb 12.1 (12.0-16.0) gm/dl Hct 37.0 (35-47) % MCV 96.1 (78-100) fl MCH 31.4 (26-32) pg MCHC 32.7 (32-36) g/dl RDW 12.1 (11.5-14.0) % Plt Count 185 (150-450) K/mm3 MPV 10.2 (7.5-11.0) fl Gran % 44.5 (36.0-66.0) % Eos # (Auto) 0.30 (0-0.5) Absolute Lymphs (auto) 2.20 (1.0-4.6) Absolute Monos (auto) 0.56 (0.0-1.3) Lymphocytes % 39.6 (24.0-44.0) % Monocytes % 10.1 (0.0-12.0) % Eosinophils % 5.4 H (0.00-5.0) % Basophils % 0.4 (0.0-0.4) % Absolute Granulocytes 2.47 (1.4-6.9) Basophils # 0.02 (0-0.4) Sodium 140 (137-145) mmol/L Potassium 4.0 (3.5-5.1) mmol/L Chloride 108 H (98-107) mmol/L Carbon Dioxide 29 (22-30) mmol/L Anion Gap 7.0 (5-15) MEQ/L BUN 4 L (7-17) mg/dL Creatinine 0.96 (0.52-1.04) mg/dL Estimated GFR > 60.0 ML/MIN Glucose 99 (74-106) mg/dL Calcium 8.5 (8.4-10.2) mg/dL Total Bilirubin 0.20 (0.2-1.3) mg/dL AST 29 (14-36) U/L ALT 31 (0-35) U/L Alkaline Phosphatase 72 (38-126) U/L Serum Total Protein 6.0 L (6.3-8.2) g/dL Albumin 3.4 L (3.5-5.0) g/dL Amylase < 30 L (30-110) U/L Lipase 37 (23-300) U/L - Procedures and Test Procedures and Tests throughout Hospitalization: Therapy Orders & Screens 04/21/20 18:42 Smoking Cessation Education ONCE Comment: Diagnosis: Pancreatitis Smoking Status: Current every day smoker How long have you smoked: years Do you dip or chew tobacco: No If,Former Smoker,when did you quit: 6 weeks Discharge Exam General Appearance: no apparent distress, alert Respiratory Exam: normal breath sounds, lungs clear, No respiratory distress Cardiovascular Exam: regular rate/rhythm, normal heart sounds Gastrointestinal/Abdomen Exam: soft, No tenderness, No mass Extremity Exam: normal inspection, normal range of motion Skin Exam: normal color, warm, dry Final Diagnosis/Problem List - Final Discharge Diagnosis/Problem (1) Acute on chronic pancreatitis Current Visit: Yes Status: Acute Assessment & Plan: resolved, kapil po. has chronic abd pain, appears at baseline and follows at [facility] Code(s): K85.90 - ACUTE PANCREATITIS WITHOUT NECROSIS OR INFECTION, UNSP; K86.1 - OTHER CHRONIC PANCREATITIS (2) Dysphagia Current Visit: Yes Status: Acute Assessment & Plan: s/p egd with dilation and tolerating po intake Code(s): R13.10 - DYSPHAGIA, UNSPECIFIED (3) Gastroparalysis Current Visit: No Status: Acute Code(s): K31.84 - GASTROPARESIS (4) Chronic abdominal pain Current Visit: No Status: Acute Code(s): R10.9 - UNSPECIFIED ABDOMINAL PAIN; G89.29 - OTHER CHRONIC PAIN - Discharge Disposition: Home, Self-Care Condition: Stable Prescriptions: New Hydrocodone/APAP 5-325 Tab^^^ [[place]aker 5-325 Tablet^^^] 1 tab PO Q6HPRN PRN #28 tablet MDD 6 PRN Reason: Pain Promethazine HCl 25 mg Supp [Phenergan 25 mg Supp] 25 mg RC Q8H PRN PRN #20 supp.rect PRN Reason: Nausea Continue Famotidine [Pepcid] 40 mg PO BID Albuterol Sulfate [Albuterol Sulfate Hfa] 2 puffs IH Q6H PRN PRN PRN Reason: Shortness Of Breath Cetirizine HCl 1 tab PO BID Prochlorperazine Maleate 10 mg [Compazine 10 mg] 10 mg PO Q6H PRN PRN PRN Reason: Nausea Guanfacine HCl [Guanfacine HCl ER] 1 mg PO HS Duloxetine HCl 1 tab PO DAILY Omeprazole 40 mg pe PO DAILY Sucralfate 1 gm [Carafate 1 GM] 1 g PO ACHS Lipase/Protease/Amylase [Francesca Mcmillan 36,000 Units Capsule] 2 each PO ACHS Non-Formulary Drug [Non-Formulary Item] 0 Promethazine HCl 25 mg [Phenergan 25 mg] 25 mg PO Q8H PRN PRN #30 tablet PRN Reason: Nausea Follow up with: KAILEY VICTORIA [Primary Care Provider] - 04/29/20 10:15 am NEELAM AIKEN [COURTESY STAFF] - 1 Week (FOLLOW UP IN 1-2 WEEKS)
--- NOTE | 2020-04-26 09:30 | OP ---
SURGERY DATE/TIME: 04/25/2020 0271 PREOPERATIVE DIAGNOSIS: Dysphagia, abdominal pain, asked that I proceed with EGD possible biopsy possible dilatation. POSTOPERATIVE DIAGNOSES: 1) Minimal to mild gastritis, chronic changes distal esophagus at the gastroesophageal junction. 2) Distal esophageal narrowing and spasm requiring dilatation. PROCEDURES: 1) EGD with cold biopsy of antrum for Helicobacter pylori. 2) Cold biopsy distal esophagus to evaluate for esophagitis. 3) Esophageal balloon dilatation symptomatic distal esophageal narrowing and spasm (size 20 balloon). SURGEON: Dr. Jose F Oh. ANESTHESIA: MAC. ESTIMATED BLOOD LOSS: Minimal. INDICATIONS: Risks and benefits explained preoperatively on the floor including but not limited to bleeding, infection, risk of bowel injury or perforation possibly requiring further procedure, risk of missed or nondiagnosis or possibility that dilatation may not improve her swallowing issues or if it does improve she may need to get it repeated again down the road. Some symptoms may be related to her chronic pancreatitis as she is concerned with her pain but not limited to, including aspiration. Risks and benefits explained in detail but not limited to, consent obtained. DESCRIPTION OF PROCEDURE AND FINDINGS: The patient is taken to the endoscopy room. MAC anesthesia introduced. After official time out and no disagreement with planned procedure, a bite block positioned. Video gastroscope easily passed down the proximal esophagus. The gastroesophageal junction is about 44 cm. There was some narrowing in that area and a little bit of some chronic changes where she had some inflammation in the past. There was no obvious mass or ulceration. It was felt that as she is having symptoms here this would benefit from dilatation at the end of the procedure. The scope was able to be passed through this area through the patent pylorus to the junction of the second and third portion of the duodenum. This was grossly unremarkable. Scope pulled back in the stomach. She had some mild gastric erythema possible some minimal mild gastritis. Cold biopsy taken to evaluate for Helicobacter pylori. Good hemostasis noted. On retroflex the gastroesophageal junction snug against the scope. No signs of any significant hiatal hernia. She had a little bit of liquid debris in the stomach consistent with her history of gastroparesis. The scope is straightened. The area suctioned. The area suction irrigated as clear as possible. The scope passed back up the esophagus. She had a little whitish area, some chronic changes in her esophagus. No amalia mass. Cold biopsy taken for completeness to evaluate for esophagitis or other changes. Good hemostasis noted. The remainder of the esophagus grossly unremarkable. No signs of any obvious mucosal lesions in the remainder of the esophagus. Again, this narrowed area where she is having symptoms felt she warranted trial dilatation as she had been dilated in the past. The scope was passed back down in the stomach. A 20 balloon catheter carefully inserted and then pulled back up through the distal esophageal narrowing area where the balloon was slowly and carefully first stage 45 seconds size 18, size 19 for 45 seconds, final stage size 20 balloon dilator for 2 minutes. The balloon was then decompressed and withdrawn. The area seemed to be more widely patent postoperatively. There was no evidence of any full thickness issues or injury secondary to dilatation. Good hemostasis noted. Scope is withdrawn. Patient tolerated the procedure well. Findings discussed with her out in the waiting area.
[2020-04-26] MEDS ORDERED: NO ANTICOAGULANTS OR BLOOD THINNERS/ASPIRIN MC SCH (10:00)
== END 2020-04-25 16:55 | disposition home or self-care (01) | DRG 440 ==
LOC: MED SURG 08:47 → OBSVTOIN 17:29 → INTOOBSV 17:29 → OBSVTOIN 04-24 08:47 → UNDODISIN 04-25 16:55
PROVIDERS: ADMIT Family Medicine; ATTEND Family Medicine
PROC: 0DD38ZX Extraction of Lower Esophagus, Via Natural or Artificial Opening Endoscopic, Diagnostic (ICD-10-PCS; principal; 2020-04-25)
PROC: 0DD78ZX Extraction of Stomach, Pylorus, Via Natural or Artificial Opening Endoscopic, Diagnostic (ICD-10-PCS; 2020-04-25)
PROC: 0D738ZZ Dilation of Lower Esophagus, Via Natural or Artificial Opening Endoscopic (ICD-10-PCS; 2020-04-25)
DX: K85.90 Acute pancreatitis without necrosis or infection, unspecified (principal); K86.1 Other chronic pancreatitis; R13.10 Dysphagia, unspecified; K31.84 Gastroparesis; K29.70 Gastritis, unspecified, without bleeding; K22.2 Esophageal obstruction; K22.4 Dyskinesia of esophagus; R10.9 Unspecified abdominal pain; Z79.899 Other long term (current) drug therapy
CPT/HCPCS: 36415; 74177; 80053; 82150; 83690; 85025; 85027; 88305; 94760; C1726; G0378; J1170; J2405; J2704; A9270-GY

== ENCOUNTER 2020-10-27 10:22 | Emergency (ER) | payer OTHER ==
[2020-10-27] MEDS ORDERED: BABY ASPIRIN 81 MG CHEW PO ONE (10:38)
--- NOTE | 2020-10-27 10:42 | ERPHSYRPT ---
- History of Present Illness Time Seen by Provider: 10/27/20 10:30 Historian: patient Exam Limitations: no limitations Physician History: This is a 40-year-old white female who has had chest pain for 2 weeks. She describes the chest pain as substernal pressure that is nonradiating. It is intermittent and associated with nausea and diaphoresis. She has been evaluated by Dr. Mcnulty, her cotton expert. She underwent a chemical stress test on 10/17/2020 which showed a small focus of pharmacologic induced reversible ischemia involving the mid to apical anterior wall. Ejection fraction was 70%. Patient had a telemedicine evaluation by Dr. Mcnulty today. Patient was having the chest pain and he told the patient to proceed to the nearest emergency department. Patient states that Dr. Mcnulty wants to be notified with the EKG findings. Patient has not had a cough, fever or significant shortness of breath. Patient does have a history of chronic pancreatitis and gastroparesis. She was scheduled to have an infusion of 1-1/2 L of normal saline in the infusion clinic today. We will provide her with that fluid infusion. Timing/Duration: week(s) (2), intermittent Quality: pressure Location: substernal, central Chest Pain Radiation: no radiation Severity of Pain-Max: mild Severity of Pain-Current: mild Associated Symptoms: nausea, diaphoresis Prior Chest Pain/Cardiac Workup: stress test Aspirin Treatment Today: no aspirin today Allergies/Adverse Reactions: codeine Allergy (Intermediate, Verified 04/21/20 17:59) Hives meperidine [From Demerol] Allergy (Intermediate, Verified 04/21/20 17:59) morphine Allergy (Intermediate, Verified 04/21/20 17:59) Hives Home Medications: Albuterol Sulfate [Albuterol Sulfate Hfa] 2 puffs IH Q6H PRN PRN 04/21/20 [History] Cetirizine HCl 1 tab PO BID 04/21/20 [History] Duloxetine HCl 1 tab PO DAILY 04/21/20 [History] Famotidine [Pepcid] 40 mg PO BID 04/21/20 [History] Guanfacine HCl [Guanfacine HCl ER] 1 mg PO HS 04/21/20 [History] Lipase/Protease/Amylase [Francesca Mcmillan 36,000 Units Capsule] 2 each PO ACHS 04/21/20 [History] Omeprazole 40 mg pe PO DAILY 04/21/20 [History] Prochlorperazine Maleate 10 mg [Compazine 10 mg] 10 mg PO Q6H PRN PRN 04/21/20 [History] Sucralfate 1 gm [Carafate 1 GM] 1 g PO ACHS 04/21/20 [History] Non-Formulary Drug [Non-Formulary Item] 1 dose DAILY 04/23/20 [History] Hydrocodone Bit/Acetaminophen [Hydrocodon-Acetaminophn 10-325] 1 each PO Q6HPRN PRN 05/02/20 [History] Hx Tetanus, Diphtheria Vaccination/Date Given: Yes Hx Influenza Vaccination/Date Given: No Hx Pneumococcal Vaccination/Date Given: No Travel Risk - International Travel Have you traveled outside of the country in past 3 weeks: No - Coronavirus Screening Are you exhibiting any of the following symptoms?: No Close contact with a COVID-19 positive Pt in past 14-21 Days: No - Review of Systems Constitutional: No Symptoms Eyes: No Symptoms Ears, Nose, & Throat: No Symptoms Respiratory: No Symptoms Cardiac: Chest Pain Abdominal/Gastrointestinal: No Symptoms Genitourinary Symptoms: No Symptoms Musculoskeletal: No Symptoms Skin: No Symptoms Neurological: No Symptoms Psychological: No Symptoms Endocrine: No Symptoms Hematologic/Lymphatic: No Symptoms Immunological/Allergic: No Symptoms All Other Systems: Reviewed and Negative - Past Medical History Pertinent Past Medical History: Yes Neurological History: No Pertinent History ENT History: No Pertinent History Cardiac History: No Pertinent History Respiratory History: No Pertinent History Endocrine Medical History: No Pertinent History Musculoskeletal History: No Pertinent History GI Medical History: GERD, Gallbladder Disease History: Other Psycho-Social History: Anxiety, Depression Female Reproductive Disorders: Endometriosis Other Medical History: immune defiency,GASTROPARESIS AND PYLORIC STENOSIS, CHRONIC PANCREATITIS. PATIENT HAS INTERNAL PAIN PUMP FOR STOMACH PAIN. - Past Surgical History Past Surgical History: Yes Neuro Surgical History: Other Cardiac: No Pertinent History Respiratory: No Pertinent History Gastrointestinal: Appendectomy, Cholecystectomy Genitourinary: No Pertinent History Musculoskeletal: No Pertinent History Female Surgical History: Hysterectomy Other Surgical History: medtronic pain pump, pyloric stretched and dilated many times. replaced pain pump, knee scope, pelvic floor surgery and bladder sling - Social History Smoking Status: Current every day smoker How long have you smoked: 20 years Exposure to second hand smoke: Yes Drug Use: none Patient Lives Alone: No - Female History Hx Now: No - Nursing Vital Signs Nursing Vital Signs: Initial Vital Signs Temperature 98.3 F 10/27/20 10:31 Pulse Rate 65 10/27/20 10:31 Respiratory Rate 18 10/27/20 10:31 Blood Pressure 134/83 10/27/20 10:31 O2 Sat by Pulse Oximetry 99 10/27/20 10:31 Pain Scale Pain Intensity 5 - Physical Exam General Appearance: no apparent distress, alert, anxiety Eye Exam: PERRL/EOMI, eyes nml inspection Ears, Nose, Throat Exam: normal ENT inspection, moist mucous membranes Neck Exam: normal inspection, non-tender, supple, full range of motion Respiratory Exam: normal breath sounds, chest tenderness, lungs clear, airway intact, No respiratory distress Cardiovascular Exam: regular rate/rhythm, normal heart sounds, normal peripheral pulses Gastrointestinal/Abdomen Exam: soft, normal bowel sounds, No tenderness Pelvic Exam: not done Rectal Exam: not done Back Exam: normal inspection, normal range of motion, No CVA tenderness, No vertebral tenderness Extremity Exam: normal inspection, normal range of motion, pelvis stable Neurologic Exam: alert, oriented x 3, cooperative, airconditioning drafting officer II-XII nml as tested, normal mood/affect, nml cerebellar function, nml station & gait, sensation nml Skin Exam: normal color, warm, dry Lymphatic Exam: No adenopathy SpO2 Interpretation: normal O2 Delivery: Room Air - Course Nursing assessment & vital signs reviewed: Yes EKG Interpreted by Me: RATE (67), Sinus Rhythm, NORMAL AXIS, NORMAL INTERVALS, NORMAL QRS, NORMAL ST-T, Other (No acute ischemic changes. There is no comparison EKG available.) Ordered Tests: Active Orders 24 hr Category Date Time Status Train Master STAT Care 10/27/20 10:39 Active EKG-ER Only STAT Care 10/27/20 10:38 Active IV Insertion STAT Care 10/27/20 10:38 Active Pulse Oximetry (ED) STAT Care 10/27/20 10:38 Active CHEST 1 VIEW (PORTABLE) Stat Exams 10/27/20 10:39 Completed CBC W DIFF Stat Lab 10/27/20 10:55 Completed CMP Stat Lab 10/27/20 10:55 Completed D-DIMER QUANTITATIVE Stat Lab 10/27/20 10:55 Completed NT PRO BNP Stat Lab 10/27/20 10:55 Completed PROTIME WITH INR Stat Lab 10/27/20 10:55 Completed TROPONIN Q3H Lab 10/27/20 10:55 Completed TROPONIN Q3H Lab 10/27/20 13:45 Ordered TROPONIN Q3H Lab 10/27/20 16:45 Ordered TROPONIN Q3H Lab 10/27/20 19:45 Ordered TROPONIN Q3H Lab 10/27/20 22:45 Ordered Medication Summary Generic Name Dose Route Start Last Admin Trade Name Freq PRN Reason Stop Dose Admin Nitroglycerin 0.4 mg 10/27/20 10:58 10/27/20 11:08 Nitrostat 0.4 Mg Tablet SL 11/26/20 10:57 0.4 mg PRN PRN Administration CHEST PAIN Discontinued Medications Generic Name Dose Route Start Last Admin Trade Name Freq PRN Reason Stop Dose Admin Aspirin 324 mg 10/27/20 10:38 10/27/20 10:50 Baby Aspirin 81 Mg Chew PO 10/27/20 10:39 324 mg STAT ONE Administration Hydromorphone HCl 0.5 mg 10/27/20 11:35 10/27/20 11:46 Hydromorphone 1 Mg/Ml Injection IV 10/27/20 11:36 0.5 mg STAT ONE Administration Hydromorphone HCl Confirm 10/27/20 11:44 Hydromorphone 1 Mg/Ml Injection Administered 10/27/20 11:45 Dose 1 mg .ROUTE .STK-MED ONE Sodium Chloride 500 mls @ 500 mls/hr 10/27/20 10:55 10/27/20 12:13 Sodium Chloride 0.9% 500 Ml IV 10/27/20 11:54 Infused .Q1H ONE Infusion Sodium Chloride 1,000 mls @ 999 mls/hr 10/27/20 10:55 10/27/20 12:12 Sodium Chloride 0.9% 1000 Ml IV 10/27/20 11:55 Infused .Q1H1M STA Infusion Sodium Chloride Confirm 10/27/20 11:03 Sodium Chloride 0.9% 1000 Ml Administered 10/27/20 11:04 Dose 1,000 mls @ ud .ROUTE .STK-MED ONE Sodium Chloride Confirm 10/27/20 11:03 Sodium Chloride 0.9% 500 Ml Administered 10/27/20 11:04 Dose 500 mls @ ud IV .STK-MED ONE Ondansetron HCl 4 mg 10/27/20 11:35 10/27/20 11:46 Zofran 4 Mg/2 Ml Vial IV 10/27/20 11:36 4 mg STAT ONE Administration Ondansetron HCl Confirm 10/27/20 11:44 Zofran 4 Mg/2 Ml Vial Administered 10/27/20 11:45 Dose 4 mg .ROUTE .STK-MED ONE Lab/Rad Data: Laboratory Result Diagrams 10/27/20 10:55 10/27/20 10:55 Laboratory Results 10/27/20 10/27/20 10/27/20 Range/Units 10:55 10:55 10:55 WBC (4.0-10.5) K/mm3 RBC (4.1-5.4) M/mm3 Hgb (12.0-16.0) gm/dl Hct (35-47) % MCV (78-100) fl MCH (26-32) pg MCHC (32-36) g/dl RDW (11.5-14.0) % Plt Count (150-450) K/mm3 MPV (7.5-11.0) fl Gran % (36.0-66.0) % Eos # (Auto) (0-0.5) Absolute Lymphs (auto) (1.0-4.6) Absolute Monos (auto) (0.0-1.3) Lymphocytes % (24.0-44.0) % Monocytes % (0.0-12.0) % Eosinophils % (0.00-5.0) % Basophils % (0.0-0.4) % Absolute Granulocytes (1.4-6.9) Basophils # (0-0.4) PT 12.0 (9.95-12.35) SECONDS INR 1.06 (0.8-3.0) D-Dimer 375 (215-500) ng/mL Sodium 139 (137-145) mmol/L Potassium 4.2 (3.5-5.1) mmol/L Chloride 104 (98-107) mmol/L Carbon Dioxide 28 (22-30) mmol/L Anion Gap 11.3 (5-15) MEQ/L BUN 11 (7-17) mg/dL Creatinine 0.96 (0.52-1.04) mg/dL Estimated GFR > 60.0 ML/MIN Glucose 98 (74-106) mg/dL Calcium 9.4 (8.4-10.2) mg/dL Total Bilirubin 0.50 (0.2-1.3) mg/dL AST 32 (14-36) U/L ALT 31 (0-35) U/L Alkaline Phosphatase 89 (38-126) U/L Troponin I < 0.012 (0.000-0.034) ng/mL NT-Pro-B Natriuret Pep 46.8 (0-450) pg/mL Serum Total Protein 7.4 (6.3-8.2) g/dL Albumin 4.2 (3.5-5.0) g/dL 10/27/20 Range/Units 10:55 WBC 5.9 (4.0-10.5) K/mm3 RBC 4.45 (4.1-5.4) M/mm3 Hgb 13.8 (12.0-16.0) gm/dl Hct 42.6 (35-47) % MCV 95.7 (78-100) fl MCH 31.0 (26-32) pg MCHC 32.4 (32-36) g/dl RDW 12.7 (11.5-14.0) % Plt Count 242 (150-450) K/mm3 MPV 10.0 (7.5-11.0) fl Gran % 53.1 (36.0-66.0) % Eos # (Auto) 0.11 (0-0.5) Absolute Lymphs (auto) 2.03 (1.0-4.6) Absolute Monos (auto) 0.60 (0.0-1.3) Lymphocytes % 34.3 (24.0-44.0) % Monocytes % 10.2 (0.0-12.0) % Eosinophils % 1.9 (0.00-5.0) % Basophils % 0.5 (0.0-0.4) % Absolute Granulocytes 3.14 (1.4-6.9) Basophils # 0.03 (0-0.4) PT (9.95-12.35) SECONDS INR (0.8-3.0) D-Dimer (215-500) ng/mL Sodium (137-145) mmol/L Potassium (3.5-5.1) mmol/L Chloride (98-107) mmol/L Carbon Dioxide (22-30) mmol/L Anion Gap (5-15) MEQ/L BUN (7-17) mg/dL Creatinine (0.52-1.04) mg/dL Estimated GFR ML/MIN Glucose (74-106) mg/dL Calcium (8.4-10.2) mg/dL Total Bilirubin (0.2-1.3) mg/dL AST (14-36) U/L ALT (0-35) U/L Alkaline Phosphatase (38-126) U/L Troponin I (0.000-0.034) ng/mL NT-Pro-B Natriuret Pep (0-450) pg/mL Serum Total Protein (6.3-8.2) g/dL Albumin (3.5-5.0) g/dL - Progress Progress: improved, re-examined Air Movement: good Progress Note: 10/27/20 11:16 Chest x-ray shows no acute cardiopulmonary process. Medical decision making: I spoke with Dr. Mcnulty, the patient's cotton expert. He states that the patient can undergo a single troponin level and if this is normal he wants the patient transferred to [facility] in [facility] for further evaluation and likely cardiac catheterization tomorrow. If the troponin is elevated then the patient is to be transferred to [facility] in [facility] for cardiac catheterization today. If the troponin is elevated, Dr. Mcnulty wants the patient to receive a heparin bolus. We are to notify him of the value of the troponin when it returns. We will then transfer the patient to [facility] in [facility]. 10/27/20 11:36 Patient states that when she has pain issues she receives Dilaudid intravenously without any problems. 10/27/20 13:55 It is 1:55 PM and we just received a call back from [facility] in [place]. We will be directly admitting to Dr. Mcnulty, cotton expert when the bed is available. Estimated time that the bed would be available is approximately 2 hours from now. Blood Culture(s) Obtained: No Antibiotics given: No Counseled pt/family regarding: lab results, diagnosis, need for follow-up, rad results - Departure Departure Disposition: Transfer Clinical Impression: Chest pain Condition: Stable Critical Care Time: No Referrals: KAILEY VICTORIA [Primary Care Provider] -
[2020-10-27] MEDS ORDERED: Sodium Chloride 0.9% 1000 ML 1,000 ML IV STA (10:55)
[2020-10-27] MEDS ORDERED: Sodium Chloride 0.9% 500 ML 500 ML IV ONE ×2 (10:55→11:03)
[2020-10-27] MEDS ORDERED: Nitrostat 0.4 MG Tablet SL PRN (10:58)
[2020-10-27 10:59] LABS: Absolute Neutrophil Ct (ANC) 3.14 (1.4-6.9); BASOPHIL % 0.5 % (0.0-0.4); Basophil (Absolute #) 0.03 (0-0.4); Eosinophil % 1.9 % (0.00-5.0); Eosinophil (Absolute #) 0.11 (0-0.5); Hematocrit 42.6 % (35-47); Hemoglobin 13.8 gm/dl (12.0-16.0); Lymphocyte (Absolute #) 2.03 (1.0-4.6); Lymphocytes % 34.3 % (24.0-44.0); Mean Cell Volume 95.7 fl (78-100); Mean Corpuscular Hgb Concent. 32.4 g/dl (32-36); Monocytes % 10.2 % (0.0-12.0); Neutrophil % 53.1 % (36.0-66.0); Platelet Count 242 K/mm3 (150-450); Red Blood Count 4.45 M/mm3 (4.1-5.4); Red Cell Distribution Width 12.7 % (11.5-14.0); White Blood Count 5.9 K/mm3 (4.0-10.5)
[2020-10-27] MEDS ORDERED: Sodium Chloride 0.9% 1000 ML 1,000 ML ONE (11:03)
--- NOTE | 2020-10-27 11:07 | XRAY ---
Indication: Chest pain. Comparison: October 08, 2019. Portable chest again demonstrates normal heart, lungs, and bony thorax.
[2020-10-27 11:21] LABS: INR 1.06 (0.8-3.0)
[2020-10-27 11:33] LABS: ALBUMIN 4.2 g/dL (3.5-5.0); ALKALINE PHOSPHATASE 89 U/L (38-126); ANION GAP 11.3 MEQ/L (5-15); BLOOD UREA NITROGEN 11 mg/dL (7-17); CHLORIDE 104 mmol/L (98-107); Calcium 9.4 mg/dL (8.4-10.2); Carbon Dioxide 28 mmol/L (22-30); Creatinine 1 0.96 mg/dL (0.52-1.04); EST GLOMERULAR FILTRATION RATE > 60.0 ML/MIN; Glucose 98 mg/dL (74-106); NT PRO BNP 46.8 pg/mL (0-450); Potassium 4.2 mmol/L (3.5-5.1); SGOT/AST 32 U/L (14-36); SGPT/ALT 31 U/L (0-35); SODIUM 139 mmol/L (137-145); Total Protein 7.4 g/dL (6.3-8.2)
[2020-10-27] MEDS ORDERED: Hydromorphone 1 mg/ml Injection IV ONE (11:35)
[2020-10-27] MEDS ORDERED: Zofran 4 MG/2 ML VIAL IV ONE ×2 (11:35→17:10)
[2020-10-27] MEDS ORDERED: Zofran 4 MG/2 ML VIAL ONE ×2 (11:44→16:46)
[2020-10-27] MEDS ORDERED: Hydromorphone 1 mg/ml Injection ONE (11:44)
[2020-10-27 14:34] VITALS: O2SAT 98
[2020-10-27 16:08] VITALS: BP 121/73; PULSE 65
== END 2020-10-27 17:35 | disposition short-term general hospital (02) ==
LOC: ED 10:22
DX: R07.89 Other chest pain (principal); R11.0 Nausea; R61 Generalized hyperhidrosis; K86.1 Other chronic pancreatitis; K31.84 Gastroparesis; Z79.899 Other long term (current) drug therapy; Z79.891 Long term (current) use of opiate analgesic
CPT/HCPCS: 36000; 36415; 71045; 80053; 83880; 84484; 85025; 85379; 85610; 93005; 93041; 94760; 96360; 96374; 96375; 96376; 99285; J1170; J2405; A9270-GY

== ENCOUNTER 2021-08-02 18:06 | Emergency (ER) | payer OTHER ==
[2021-08-02] MEDS ORDERED: BENADRYL 50 MG/ML IV ONE (18:35)
[2021-08-02] MEDS ORDERED: Sodium Chloride 0.9% 1000 ML 1,000 ML IV STA (18:35)
[2021-08-02] MEDS ORDERED: Reglan 10 MG/2 ML IV ONE (18:35)
[2021-08-02] MEDS ORDERED: TORAdol 30 mg Injection IV ONE (18:35)
[2021-08-02] MEDS ORDERED: Reglan 10 MG/2 ML ONE (18:46)
[2021-08-02] MEDS ORDERED: Sodium Chloride 0.9% 1000 ML 1,000 ML ONE (18:46)
[2021-08-02] MEDS ORDERED: TORAdol 30 mg Injection ONE (18:46)
[2021-08-02] MEDS ORDERED: BENADRYL 50 MG/ML ONE (18:46)
[2021-08-02 19:01] LABS: Absolute Neutrophil Ct (ANC) 9.05 (1.4-6.9); BASOPHIL % 0.1 % (0.0-0.4); Basophil (Absolute #) 0.01 (0-0.4); Eosinophil % 0.2 % (0.00-5.0); Eosinophil (Absolute #) 0.02 (0-0.5); Hematocrit 39.2 % (35-47); Hemoglobin 12.6 gm/dl (12.0-16.0); Lymphocyte (Absolute #) 1.23 (1.0-4.6); Lymphocytes % 10.9 % (24.0-44.0); Mean Cell Volume 93.8 fl (78-100); Mean Corpuscular Hemoglobin 30.1 pg (26-32); Mean Corpuscular Hgb Concent. 32.1 g/dl (32-36); Mean Platelet Volume 9.3 fl (7.5-11.0); Monocytes % 8.8 % (0.0-12.0); Platelet Count 280 K/mm3 (150-450); Red Blood Count 4.18 M/mm3 (4.1-5.4); Red Cell Distribution Width 12.4 % (11.5-14.0); White Blood Count 11.3 K/mm3 (4.0-10.5)
[2021-08-02 19:04] LABS: ALBUMIN 3.6 g/dL (3.5-5.0); ALKALINE PHOSPHATASE 141 U/L (38-126); ANION GAP 11.8 MEQ/L (5-15); BLOOD UREA NITROGEN 13 mg/dL (7-17); CHLORIDE 101 mmol/L (98-107); Calcium 8.7 mg/dL (8.4-10.2); Carbon Dioxide 28 mmol/L (22-30); Creatinine 1 0.79 mg/dL (0.52-1.04); EST GLOMERULAR FILTRATION RATE > 60.0 ML/MIN; Glucose 110 mg/dL (74-106); LIPASE 83 U/L (23-300); Potassium 4.1 mmol/L (3.5-5.1); SGOT/AST 93 U/L (14-36); SGPT/ALT 140 U/L (0-35); SODIUM 136 mmol/L (137-145); Total Protein 6.5 g/dL (6.3-8.2)
[2021-08-02 19:51] LABS: Appearance CLEAR (CLEAR); Bilirubin MODERATE (NEGATIVE); Blood NEGATIVE Ery/ul (0-5); Glucose 50 mg/dL (NEGATIVE); Ketones SMALL (NEGATIVE); Leukocyte Esterase SMALL (NEGATIVE); Nitrite NEGATIVE (NEGATIVE); Protein,Urine Dip 30 (Negative); Specific Gravity 1.018 (1.005-1.025); Urobilinogen 4 mg/dL (0-1)
[2021-08-02 20:09] VITALS: O2SAT 96
[2021-08-02 20:45] VITALS: BP 100/72; PULSE 80
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
--- NOTE | 2021-08-03 08:52 | XRAY ---
Indication: Short of breath and chest pain. Positive Covid 19. Comparison: March 06, 2021. Portable chest demonstrates normal heart and lungs. Bony thorax intact with incidental bilateral breast implants. No new/acute abnormalities.
== END 2021-08-02 20:59 | disposition home or self-care (01) ==
LOC: ED 18:06
DX: R51.9 Headache, unspecified (principal); R05.9 Cough, unspecified
CPT/HCPCS: 36000; 36415; 71045; 80053; 81001; 83690; 85025; 87086; 96374; 96375; 99284; J1200; J1885

== ENCOUNTER 2021-08-09 03:39 | Emergency (ER) | payer OTHER ==
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
[2021-08-09 07:01] VITALS: BP 95/75; PULSE 83
--- NOTE | 2021-08-09 08:56 | XRAY ---
Indication: Bilateral rib pain following fall. Multiple contiguous axial images obtained through the chest without contrast. Comparison: June 04, 2019. Lungs demonstrates interval worsening moderate bibasilar dependent atelectasis with new small right/tiny left effusions. Also a few new bilateral peripheral airspace opacities. Stable minimal biapical subpleural cystic changes. No pneumothorax. Heart is not enlarged. Aorta remains normal in course and caliber. No pathologic mediastinal/hilar lymphadenopathy. Bony thorax intact again with bilateral breast implants. Limited upper abdomen demonstrates nonobstructing punctate right renal calculi similar to CT abdomen April 21, 2020. Impression: 1. New bilateral peripheral airspace opacities and bilateral effusions. Pneumonia not completely excluded in the right clinical setting. 2. Stable biapical subpleural cystic changes and nonobstructing right renal micro-calculi. Comment: Preliminary interpretation made by [facility]. No critical discrepancy.
[2021-08-13 00:08] VITALS: O2SAT 96
== END 2021-08-09 07:00 | disposition home or self-care (01) ==
LOC: ED 03:39
DX: S92.012A Displaced fracture of body of left calcaneus, initial encounter for closed fracture (principal); S20.219A Contusion of unspecified front wall of thorax, initial encounter; W19.XXXA Unspecified fall, initial encounter
CPT/HCPCS: 71250; 99283

== ENCOUNTER 2021-08-11 16:31 | Emergency (ER) | payer OTHER ==
[2021-08-11 17:04] LABS: Absolute Neutrophil Ct (ANC) 3.62 (1.4-6.9); BASOPHIL % 0.5 % (0.0-0.4); Basophil (Absolute #) 0.04 (0-0.4); Eosinophil % 2.2 % (0.00-5.0); Eosinophil (Absolute #) 0.16 (0-0.5); Hematocrit 41.5 % (35-47); Hemoglobin 13.1 gm/dl (12.0-16.0); Lymphocyte (Absolute #) 2.83 (1.0-4.6); Lymphocytes % 38.1 % (24.0-44.0); Mean Cell Volume 95.6 fl (78-100); Mean Corpuscular Hemoglobin 30.2 pg (26-32); Mean Corpuscular Hgb Concent. 31.6 g/dl (32-36); Mean Platelet Volume 9.4 fl (7.5-11.0); Monocyte (Absolute #) 0.78 (0.0-1.3); Monocytes % 10.5 % (0.0-12.0); Neutrophil % 48.7 % (36.0-66.0); Platelet Count 399 K/mm3 (150-450); Red Blood Count 4.34 M/mm3 (4.1-5.4); Red Cell Distribution Width 12.8 % (11.5-14.0); White Blood Count 7.4 K/mm3 (4.0-10.5)
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
[2021-08-11 17:11] LABS: INR 1.06 (0.8-3.0); PROTIME 12.5 SECONDS (9.4-12.5)
[2021-08-11 17:14] LABS: PTT 34.6 SECONDS (25.1-36.5)
[2021-08-11 17:22] LABS: ALBUMIN 3.8 g/dL (3.5-5.0); ALKALINE PHOSPHATASE 157 U/L (38-126); ANION GAP 12.2 MEQ/L (5-15); BLOOD UREA NITROGEN 15 mg/dL (7-17); CHLORIDE 105 mmol/L (98-107); Calcium 9.4 mg/dL (8.4-10.2); Carbon Dioxide 27 mmol/L (22-30); Creatinine 1 0.82 mg/dL (0.52-1.04); EST GLOMERULAR FILTRATION RATE > 60.0 ML/MIN; Glucose 118 mg/dL (74-106); NT PRO BNP 28.2 pg/mL (0-450); Potassium 3.6 mmol/L (3.5-5.1); SGOT/AST 84 U/L (14-36); SGPT/ALT 71 U/L (0-35); SODIUM 140 mmol/L (137-145); Total Protein 7.3 g/dL (6.3-8.2)
[2021-08-11 19:19] VITALS: BP 134/84; PULSE 83
[2021-08-11] MEDS ORDERED: TORAdol 30 mg Injection IV ONE (19:19)
[2021-08-11] MEDS ORDERED: TORAdol 30 mg Injection ONE (19:20)
[2021-08-11] MEDS ORDERED: ROCEPHIN 1 Gm-D5w 50 ml Bag** 1 G/50 ML IVPB IV STA (19:20)
[2021-08-11] MEDS ORDERED: ROCEPHIN 1 Gm-D5w 50 ml Bag** 1 G/50 ML IVPB IV ONE (19:20)
[2021-08-11 19:26] VITALS: O2SAT 99
--- NOTE | 2021-08-12 07:58 | XRAY ---
Indication: Pneumonia. Post-Covid 19. Status post fall. Multiple contiguous axial images obtained through the chest using 100 cc Isovue 370 contrast and PE protocol. Comparison: August 11, 2021. There is good opacification of the pulmonary arteries to include the lobar and segmental branches. No pulmonary embolus. Heart not enlarged. Aorta is normal in course and caliber. No pathologic mediastinal/hilar lymphadenopathy. Lungs again demonstrates moderate bibasilar dependent atelectasis, small bilateral effusions, and minimal biapical subpleural cystic changes. No suspicious pulmonary mass, infiltrate, effusion, or pneumothorax. Bony thorax intact again with bilateral breast implants. Limited upper abdomen unremarkable. Impression: 1. Negative pulmonary embolus. No new/acute cardiopulmonary abnormalities. 2. Again bibasilar dependent atelectasis with small effusions. Comment: Preliminary interpretation by [facility]. No critical discrepancy.
== END 2021-08-11 19:43 | disposition home or self-care (01) ==
LOC: ED 16:31
DX: R06.00 Dyspnea, unspecified (principal); U09.9 Post COVID-19 condition, unspecified
CPT/HCPCS: 36000; 36415; 71260; 80053; 83880; 84484; 85025; 85379; 85610; 85730; 93005; 93041; 96374; 99284; J0696; J1885

== ENCOUNTER 2021-12-06 11:26 | Day surgery (SDC) | payer OTHER ==
[2021-12-06] MEDS ORDERED: LIDOCAINE HCL 2% 100 MG/5 ML IJ ONE (11:27)
[2021-12-06] MEDS ORDERED: DIPRIVAN 200 MG/20 ML IV ONE (12:52)
--- NOTE | 2021-12-06 14:57 | XRAY ---
Indication: Right C2-C5 MBB. Intraoperative fluoroscopy provided for 36 seconds. 3 digital spot images submitted for interpretation demonstrates posterior needle tips projecting over the expected right C2-C5 nerve roots. Correlate with intraoperative findings/report.
[2021-12-06] MEDS ORDERED: Lactated Ringers 1,000 ML IV ONE (14:59)
--- NOTE | 2021-12-06 15:03 | XRAY ---
36 seconds of fluoroscopy was used in surgery for a right C2-C4 MBB.
== END 2021-12-06 13:20 | disposition home or self-care (01) ==
LOC: SDC-PAIN 11:26
PROVIDERS: ATTEND Psychiatry & Neurology Pain Medicine
DX: M47.812 Spondylosis without myelopathy or radiculopathy, cervical region (principal); E11.9 Type 2 diabetes mellitus without complications; Z79.899 Other long term (current) drug therapy
CPT/HCPCS: 64490; 64491; 64492; 72040; 77002; 82947; J2704

== ENCOUNTER 2021-12-10 19:54 | Emergency (ER) | payer OTHER ==
[2021-12-10 20:35] VITALS: O2SAT 98
[2021-12-10] MEDS ORDERED: Zofran 4 MG/2 ML VIAL IV ONE (20:37)
[2021-12-10] MEDS ORDERED: Hydromorphone 1 mg/ml Injection IV ONE (20:37)
[2021-12-10] MEDS ORDERED: Sodium Chloride 0.9% 1000 ML 1,000 ML IV STA (20:37)
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
[2021-12-10 20:51] LABS: Absolute Neutrophil Ct (ANC) 2.76 (1.4-6.9); Basophil (Absolute #) 0.05 (0-0.4); Eosinophil % 2.3 % (0.00-5.0); Eosinophil (Absolute #) 0.14 (0-0.5); Hemoglobin 13.1 gm/dl (12.0-16.0); Lymphocyte (Absolute #) 2.45 (1.0-4.6); Lymphocytes % 40.7 % (24.0-44.0); Mean Cell Volume 93.5 fl (78-100); Mean Corpuscular Hemoglobin 30.6 pg (26-32); Mean Corpuscular Hgb Concent. 32.8 g/dl (32-36); Mean Platelet Volume 10.5 fl (7.5-11.0); Monocyte (Absolute #) 0.62 (0.0-1.3); Monocytes % 10.3 % (0.0-12.0); Neutrophil % 45.9 % (36.0-66.0); Platelet Count 209 K/mm3 (150-450); Red Blood Count 4.28 M/mm3 (4.1-5.4); Red Cell Distribution Width 12.7 % (11.5-14.0)
[2021-12-10] MEDS ORDERED: Sodium Chloride 0.9% 1000 ML 1,000 ML ONE (20:55)
[2021-12-10] MEDS ORDERED: Hydromorphone 1 mg/ml Injection ONE (20:55)
[2021-12-10] MEDS ORDERED: Zofran 4 MG/2 ML VIAL ONE (20:55)
[2021-12-10 21:03] LABS: ALBUMIN 3.9 g/dL (3.5-5.0); ALKALINE PHOSPHATASE 88 U/L (38-126); AMYLASE 49 U/L (30-110); ANION GAP 13.4 MEQ/L (5-15); BLOOD UREA NITROGEN 11 mg/dL (7-17); CHLORIDE 107 mmol/L (98-107); Calcium 8.6 mg/dL (8.4-10.2); Carbon Dioxide 22 mmol/L (22-30); Creatinine 1 0.93 mg/dL (0.52-1.04); EST GLOMERULAR FILTRATION RATE > 60.0 ML/MIN; Glucose 108 mg/dL (74-106); LIPASE 166 U/L (23-300); Potassium 4.2 mmol/L (3.5-5.1); SGOT/AST 32 U/L (14-36); SGPT/ALT 31 U/L (0-35); SODIUM 138 mmol/L (137-145); Total Protein 6.6 g/dL (6.3-8.2)
[2021-12-10 22:31] LABS: Amourphous Crystal FEW /HPF (NEGATIVE); Appearance SLIGHTLY CLOUDY (CLEAR); Bilirubin NEGATIVE (NEGATIVE); Blood NEGATIVE Ery/ul (0-5); Epithelial Cells RARE /HPF (FEW); Glucose NEGATIVE (NEGATIVE); Ketones NEGATIVE (NEGATIVE); Leukocyte Esterase NEGATIVE (NEGATIVE); Mucus SLIGHT /HPF (NEGATIVE); Nitrite NEGATIVE (NEGATIVE); Protein,Urine Dip NEGATIVE (Negative); Specific Gravity 1.017 (1.005-1.025); Urobilinogen NEGATIVE mg/dL (0-1); WBC 0-2 /HPF (0-5)
[2021-12-10 22:47] VITALS: BP 112/75; PULSE 66
--- NOTE | 2021-12-11 08:47 | XRAY ---
Indication: Abdomen pain, nausea, and vomiting. History of pancreatitis. Multiple contiguous axial images obtained through the abdomen and pelvis without contrast. Comparison: MayApril 21, 2020. Lung bases again demonstrates minimal dependent atelectasis. No infiltrate or effusion. Heart not enlarged. Again partially visualized bilateral breast implants. Left abdominal wall pain pump again produces beam artifact. Stomach is now distended with food/fluid. Noncontrasted stomach and bowel loops are nonobstructed. Right kidney again demonstrates 2 nonobstructing micro-calculi. Again anatomy, cholecystotomy, and hysterectomy. No free fluid/air. Remaining liver, pancreas, spleen, adrenal glands, kidneys, ureters, and bladder are unremarkable for noncontrast exam. Faint minimal aortic calcifications without AAA. Osseous structures intact. Impression: 1. Again beam artifact from pain pump and nonobstructing right renal micro-calculi. 2. Remaining CT abdomen/pelvis without contrast exam is negative. Comment: Preliminary interpretation made by C. No critical discrepancy.
== END 2021-12-10 22:47 | disposition home or self-care (01) ==
LOC: ED 19:54
DX: R10.13 Epigastric pain (principal); G89.29 Other chronic pain; R11.2 Nausea with vomiting, unspecified; E78.5 Hyperlipidemia, unspecified; K21.9 Gastro-esophageal reflux disease without esophagitis; Z87.19 Personal history of other diseases of the digestive system; Z86.16 Personal history of COVID-19; Z79.891 Long term (current) use of opiate analgesic; Z79.52 Long term (current) use of systemic steroids; Z79.899 Other long term (current) drug therapy
CPT/HCPCS: 36000; 36415; 74176; 80053; 81001; 82150; 83605; 83690; 85025; 96374; 96375; 99284; J1170; J2405

== ENCOUNTER 2021-12-23 11:12 | Emergency (ER) | payer OTHER ==
[2021-12-23] MEDS ORDERED: solu-MEDROL 125 MG, Sterile H2O 10 ml 2 ML IV ONE ×2 (11:36)
[2021-12-23] MEDS ORDERED: TobraDEX Eye Drops OP SCH (11:45)
[2021-12-23] MEDS ORDERED: TobraDEX Eye Drops ONE (11:56)
[2021-12-23] MEDS ORDERED: Sterile H2O 10 ml IJ ONE ×2 (12:01→12:05)
[2021-12-23] MEDS ORDERED: solu-MEDROL ONE (12:01)
[2021-12-23 12:15] VITALS: PULSE 58
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
[2021-12-23 12:49] VITALS: BP 120/90; O2SAT 97
== END 2021-12-23 13:03 | disposition home or self-care (01) ==
LOC: ED 11:12
DX: H10.13 Acute atopic conjunctivitis, bilateral (principal); E78.5 Hyperlipidemia, unspecified; K21.9 Gastro-esophageal reflux disease without esophagitis; Z79.891 Long term (current) use of opiate analgesic; Z79.52 Long term (current) use of systemic steroids; Z79.899 Other long term (current) drug therapy; Z86.16 Personal history of COVID-19
CPT/HCPCS: 96374; 99283; J2930; A9270-GY

== ENCOUNTER 2021-12-27 14:08 | Day surgery (SDC) | payer OTHER ==
[2021-12-27] MEDS ORDERED: BUPIVACAINE 0.5% VIAL IJ ONE ×2 (14:09→17:05)
[2021-12-27] MEDS ORDERED: DIPRIVAN 200 MG/20 ML IV ONE (17:05)
[2021-12-27] MEDS ORDERED: Lactated Ringers 1,000 ML IV ONE (17:17)
--- NOTE | 2021-12-27 20:36 | XRAY ---
Indication: Right C2-C5 MBB. Intraoperative fluoroscopy provided for 19 seconds. 2 digital spot image submitted for interpretation demonstrates posterior needle tips projecting over the expected right C2-C5 nerve roots. Correlate with intraoperative findings/report.
--- NOTE | 2021-12-28 08:57 | XRAY ---
19 seconds fluoroscopy time in surgery for right C2-C5 MBB.
== END 2021-12-27 17:35 | disposition home or self-care (01) ==
LOC: SDC-PAIN 14:08
PROVIDERS: ATTEND Psychiatry & Neurology Pain Medicine
DX: M47.812 Spondylosis without myelopathy or radiculopathy, cervical region (principal); Z79.899 Other long term (current) drug therapy; E11.9 Type 2 diabetes mellitus without complications
CPT/HCPCS: 64490; 64491; 64492; 72040; 77002; 82947; J2704

== ENCOUNTER → 2022-01-22 | Day surgery (SDC) | payer OTHER ==
[~2022-01-22] MED LIST: BENADRYL 50 MG/ML ONE; Compazine 10 MG/2 ML ONE; DIPRIVAN 200 MG/20 ML IV ONE; Lactated Ringers 1,000 ML IV ONE; Lactated Ringers 1,000 ML IV SCH; TORAdol 30 mg Injection ONE; Xylocaine-Mpf 2% 5 Ml Vial ONE; Zofran 4 MG/2 ML VIAL ONE
--- NOTE | 2022-01-22 09:04 | HP ---
DATE OF SURGERY: 01/22/2022 HISTORY OF PRESENT ILLNESS: The patient is a 41-year-old with increased dysphagia, some increased reflux, chokes at night, some epigastric pain and some upper and lower esophagus dysphagia according to the patient. Dysphagia, history of hiatal hernia, some reflux. She is in need of upper endoscopy possible biopsy possible dilatation pending on operative findings. PAST MEDICAL HISTORY: Hyperlipidemia, chronic pancreatitis, chronic abdominal pain, gastroparesis, reflux, migraine, gastritis. PAST SURGICAL HISTORY: Cholecystectomy. Appendectomy. Hysterectomy. Nerve block C3, C5 in the past. Lumpectomy left breast. Endoscopy. Dilatation in the past distal esophagus a couple years ago. Pain pump in the past. Some question of diabetes. MEDICATIONS: Atorvastatin for hyperlipidemia, cetirizine, clonazepam, Estradiol, ezetimibe, metformin, paroxetine, promethazine, sumatriptan. ALLERGIES: CODEINE. DEMEROL. MORPHINE. FAMILY HISTORY: Diabetes. Prostate and breast cancer. SOCIAL HISTORY: No smoking or alcohol abuse. REVIEW OF SYSTEMS: Fourteen systems reviewed per admission assessment. No chest pain or palpitations. Other systems negative or noncontributory as above and per preadmission questionnaire. PHYSICAL EXAMINATION: GENERAL: No acute distress. HEENT: Sclerae nonicteric. NECK: No JVD. CHEST: Equal excursion, nonlabored breathing. CVS: Regular rate and rhythm. ABDOMEN: Soft. No peritoneal signs. EXTREMITIES: No significant edema. NEURO: Alert, oriented, moving extremities symmetrically. PSYCH: Appropriate mood and affect. IMPRESSION: Dysphagia, reflux, hiatal hernia in the past. I recommend upper endoscopy, possible biopsy possible dilatation. Risks and benefits explained in detail including but not limited to bleeding or infection, risk of bowel injury or perforation possibly requiring open procedure, risk of missed or nondiagnosis or incomplete exam possibly requiring barium swallow, other studies or procedures. General risk of anesthesia or sedation, possibility if dilatation improves her swallowing she may need it repeated again down the road. There is a possibility that this may be more of a functional or neurologic problem and dilatation may not help her dysphagia. She may need other work up, testing or procedures, She understands and agrees to the planned procedure, will proceed with EGD possible biopsy possible dilatation as an outpatient.
[2022-01-22 12:37] VITALS: BP 128/71; PULSE 65; O2SAT 98
--- NOTE | 2022-01-23 08:16 | OP ---
SURGERY DATE/TIME: 01/22/2022 1130 PREOPERATIVE DIAGNOSIS: Dysphagia, some indigestion and reflux. POSTOPERATIVE DIAGNOSES: 1) Minimal distal esophagitis. 2) Minimal to mild gastritis. 3) Possible esophageal and distal esophageal symptomatic narrowing and spasm requiring dilatation. 4) ASA Class 3. PROCEDURES: 1) EGD with cold biopsy of antrum to evaluate for Helicobacter pylori. 2) Cold biopsy distal esophagus to evaluate for early distal esophagitis. 3) Cold biopsy mid esophagus to evaluate for eosinophilic esophagitis. 4) Esophageal dilatation of symptomatic proximal esophageal narrowing and spasm (size 20 balloon dilator). 5) Esophageal dilatation of symptomatic distal esophageal spasm and narrowing (size 20 balloon dilator) SURGEON: Dr. Jose F Oh. ANESTHESIA: MAC. ESTIMATED BLOOD LOSS: Minimal. INDICATIONS: As noted above. Risks and benefits explained in detail and not limited to and consent obtained. DESCRIPTION OF PROCEDURE AND FINDINGS: The patient is taken to the endoscopy room. MAC anesthesia introduced. After official time out and no disagreement with planned procedure, bite block positioned. Video gastroscope passed down the oropharynx. There was a little bit of a narrowing and spasm in the proximal esophagus where she is having some symptoms. There were no signs of any obvious mass or lesion to biopsy but given her symptoms in this area it was felt it warranted trial dilatation at the end of the procedure. The scope was able to be passed just past here. There was another mild narrowing and spasm in the distal esophagus where she was having additional symptoms. There was no obvious mass or lesion to biopsy. She did have some esophageal erythema. Cold biopsies taken to evaluate for early esophagitis. Given her symptoms in that area, it was felt it was worth a trial of dilatation in this area as well. The scope was passed down through the third portion of the duodenum. Third, second, first portion of duodenum grossly unremarkable. Back in the stomach she had some mild gastric erythema. Cold biopsy taken to evaluate for Helicobacter pylori. Good hemostasis noted. On retroflex the gastroesophageal junction is fairly snug against the scope. There may have been just a very trace weakness but there was definitely no evidence of any large hiatal hernia. The scope pulled back. Gastroesophageal junction about 39 cm. Again, cold biopsy had been taken in the antrum for Helicobacter pylori. Cold biopsy accomplished in the distal esophagus to evaluate for early distal esophagitis and also cold biopsy taken in the mid esophagus where she had some tertiary contractions to evaluate eosinophilic esophagitis as well. At this point again as she is having symptoms of food sticking in the proximal and distal esophagus, it was felt she warranted a trial of dilatation. Therefore the scope passed back down the stomach balloon catheter carefully inserted, pulled up to the distal esophageal narrowing and spasm where she was having symptoms. The balloon is then carefully inflated first stage size 19 for 30 seconds and then 20 balloon catheter inflated to size 20 balloon dilator and left there for about two minutes. The balloon catheter is then carefully released and decompressed. The scope pulled back up to the proximal esophageal narrowing and spasm this area was then carefully inflated. First stage 30 seconds, second stage for 30 seconds and final stage size 20 balloon dilator for 2 minutes. Once this was accomplished, the balloon was decompressed and balloon catheter withdrawn. The scope much more easily passed through these two areas back in the stomach and carefully withdrawn. There were no signs of any full thickness issues or injury secondary to dilatation. The patient tolerated the procedure well. There was no family to discuss the findings with out in the waiting area.
== END | disposition home or self-care (01) ==
LOC: SDC 09:31
PROVIDERS: ATTEND Surgery
DX: K20.90 Esophagitis, unspecified without bleeding (principal); R13.10 Dysphagia, unspecified; Z83.3 Family history of diabetes mellitus; K29.70 Gastritis, unspecified, without bleeding; K22.2 Esophageal obstruction; K22.4 Dyskinesia of esophagus
CPT/HCPCS: 82947; C1726; J1200; J1885; J2405; J2704

== ENCOUNTER 2022-02-21 07:46 | Day surgery (SDC) | payer OTHER ==
[2022-02-21] MEDS ORDERED: BUPIVACAINE 0.5% VIAL IJ ONE (07:47)
[2022-02-21] MEDS ORDERED: Xylocaine 1% Vial 30 ML PF IJ ONE (07:47)
[2022-02-21] MEDS ORDERED: Decadron 4 MG INJ IV ONE (07:47)
[2022-02-21] MEDS ORDERED: Lactated Ringers 1,000 ML IV ONE (09:16)
[2022-02-21] MEDS ORDERED: DIPRIVAN 200 MG/20 ML IV ONE ×2 (09:46→09:58)
--- NOTE | 2022-02-21 10:58 | XRAY ---
Indication: Right C2-C5 RFA. Intraoperative fluoroscopy provided for 45 seconds. 4 digital spot images submitted for interpretation demonstrates posterior needle tips projecting over the expected right C2-C5 nerve roots. Correlate with intraoperative findings/report.
--- NOTE | 2022-02-21 12:47 | XRAY ---
45 seconds of fluoroscopy was used in surgery for a right C2-C5 RFA.
== END 2022-02-21 10:23 | disposition home or self-care (01) ==
LOC: SDC-PAIN 07:46
PROVIDERS: ATTEND Psychiatry & Neurology Pain Medicine
DX: M47.812 Spondylosis without myelopathy or radiculopathy, cervical region (principal); E11.9 Type 2 diabetes mellitus without complications; Z79.899 Other long term (current) drug therapy
CPT/HCPCS: 01939; 64633; 64634; 72040; 77002; 82947; J1100; J2001; J2704

== ENCOUNTER 2022-05-29 19:19 | Emergency (ER) | payer OTHER ==
[2022-05-29] MEDS ORDERED: Sodium Chloride 0.9% 1000 ML 1,000 ML IV STA (20:41)
[2022-05-29] MEDS ORDERED: Zofran 4 MG/2 ML VIAL IV ONE (20:41)
[2022-05-29] MEDS ORDERED: Hydromorphone 1 mg/ml Injection IV ONE (20:43)
[2022-05-29 20:44] VITALS: O2SAT 97
[2022-05-29] MEDS ORDERED: Hydromorphone 1 mg/ml Injection ONE (20:48)
[2022-05-29] MEDS ORDERED: Sodium Chloride 0.9% 1000 ML 1,000 ML ONE (20:48)
[2022-05-29] MEDS ORDERED: Zofran 4 MG/2 ML VIAL ONE (20:48)
[2022-05-29 20:50] LABS: Absolute Neutrophil Ct (ANC) 3.72 x10^3/uL (1.4-6.9); Basophil (Absolute #) 0.05 x10^3/uL (0-0.4); Eosinophil % 0.7 % (0.00-5.0); Eosinophil (Absolute #) 0.05 x10^3/uL (0-0.5); Hematocrit 37.5 % (35-47); Hemoglobin 12.6 g/dL (12.0-16.0); Lymphocyte (Absolute #) 2.23 x10^3/uL (1.0-4.6); Lymphocytes % 33.3 % (24.0-44.0); Mean Cell Volume 89.5 fL (78-100); Mean Corpuscular Hemoglobin 30.1 pg (26-32); Mean Corpuscular Hgb Concent. 33.6 g/dL (32-36); Mean Platelet Volume 10.1 fL (7.5-11.0); Monocyte (Absolute #) 0.63 x10^3/uL (0.0-1.3); Monocytes % 9.4 % (0.0-12.0); Neutrophil % 55.6 % (36.0-66.0); Platelet Count 278 x10^3/uL (150-450); Red Blood Count 4.19 x10^6/uL (4.1-5.4); Red Cell Distribution Width 12.6 % (11.5-14.0); White Blood Count 6.7 x10^3/uL (4.0-10.5)
[2022-05-29 20:55] LABS: ALBUMIN 3.9 g/dL (3.5-5.0); ALKALINE PHOSPHATASE 101 U/L (38-126); ANION GAP 10.6 MEQ/L (5-15); BLOOD UREA NITROGEN 9 mg/dL (7-17); CHLORIDE 106 mmol/L (98-107); Calcium 8.8 mg/dL (8.4-10.2); Carbon Dioxide 24 mmol/L (22-30); Creatinine 1 1.06 mg/dL (0.52-1.04); EST GLOMERULAR FILTRATION RATE > 60.0 ML/MIN; Glucose 116 mg/dL (74-106); LIPASE 144 U/L (23-300); Potassium 3.4 mmol/L (3.5-5.1); SGOT/AST 34 U/L (14-36); SGPT/ALT 30 U/L (0-35); SODIUM 137 mmol/L (137-145); Total Protein 6.5 g/dL (6.3-8.2)
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
[2022-05-29 22:21] VITALS: BP 134/88; PULSE 92
--- NOTE | 2022-05-30 08:46 | XRAY ---
Indication: Abdomen pain, nausea, vomiting, and possible blood in stool. Multiple contiguous axial images obtained through the abdomen and pelvis without contrast. Comparison: January 25, 2022 Lung bases clear. Heart not enlarged. Again partially visualized bilateral breast implants. Left abdomen pain pump again produces beam artifact. Stomach is distended with food/fluid. Noncontrasted stomach and bowel loops appear nonobstructed. Again appendectomy, cholecystectomy, and hysterectomy. No free fluid/air. Right kidney again demonstrates 2 nonobstructing micro-calculi. Remaining liver, pancreas, spleen, adrenal glands, kidneys, ureters, and bladder appear unremarkable for noncontrast exam. Again minimal aortic calcifications without AAA. Osseous structures intact again with minimal levoscoliosis. Impression: 1. Stable beam artifact from left pain pump and 2 nonobstructing right renal micro-calculi. 2. Remaining CT abdomen/pelvis without contrast exam is again negative.
== END 2022-05-29 22:26 | disposition home or self-care (01) ==
LOC: ED 19:19
DX: N20.0 Calculus of kidney (principal); R10.33 Periumbilical pain; R11.2 Nausea with vomiting, unspecified; E78.5 Hyperlipidemia, unspecified; E11.9 Type 2 diabetes mellitus without complications; Z79.899 Other long term (current) drug therapy; Z86.16 Personal history of COVID-19
CPT/HCPCS: 36000; 36415; 74176; 80053; 83690; 84484; 85025; 96374; 96375; 99284; J1170; J2405

== ENCOUNTER 2022-07-05 09:56 | Emergency (ER) | payer OTHER ==
[2022-07-05] MEDS ORDERED: Hydromorphone 1 mg/ml Injection ONE (11:02)
[2022-07-05] MEDS ORDERED: Hydromorphone 1 mg/ml Injection IM ONE (11:02)
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
[2022-07-05 12:02] VITALS: BP 118/78; PULSE 78; O2SAT 98
== END 2022-07-05 12:16 | disposition home or self-care (01) ==
LOC: ED 09:56
DX: F11.93 Opioid use, unspecified with withdrawal (principal); T85.615A Breakdown (mechanical) of other nervous system device, implant or graft, initial encounter; Z79.899 Other long term (current) drug therapy; E78.5 Hyperlipidemia, unspecified; E11.9 Type 2 diabetes mellitus without complications
CPT/HCPCS: 96372; 99283; J1170

== ENCOUNTER 2022-07-20 11:53 | Emergency (ER) | payer OTHER ==
[2022-07-20] MEDS ORDERED: Hydromorphone 1 mg/ml Injection IV ONE (12:16)
[2022-07-20] MEDS ORDERED: Zofran 4 MG/2 ML VIAL IV ONE (12:17)
[2022-07-20] MEDS ORDERED: Sodium Chloride 0.9% 1000 ML 1,000 ML IV STA ×2 (12:17→14:24)
[2022-07-20] MEDS ORDERED: Zofran 4 MG/2 ML VIAL ONE (12:19)
[2022-07-20] MEDS ORDERED: Hydromorphone 1 mg/ml Injection ONE (12:20)
[2022-07-20] MEDS ORDERED: Sodium Chloride 0.9% 1000 ML 1,000 ML ONE ×2 (12:20→14:25)
[2022-07-20 12:43] LABS: Absolute Neutrophil Ct (ANC) 3.33 x10^3/uL (1.4-6.9); Basophil (Absolute #) 0.04 x10^3/uL (0-0.4); Eosinophil % 1.2 % (0.00-5.0); Eosinophil (Absolute #) 0.08 x10^3/uL (0-0.5); Hematocrit 44.5 % (35-47); Lymphocytes % 38.1 % (24.0-44.0); Mean Cell Volume 88.5 fL (78-100); Mean Corpuscular Hemoglobin 29.8 pg (26-32); Mean Corpuscular Hgb Concent. 33.7 g/dL (32-36); Mean Platelet Volume 9.8 fL (7.5-11.0); Monocytes % 9.1 % (0.0-12.0); Neutrophil % 50.7 % (36.0-66.0); Platelet Count 315 x10^3/uL (150-450); Red Blood Count 5.03 x10^6/uL (4.1-5.4); Red Cell Distribution Width 12.1 % (11.5-14.0); White Blood Count 6.6 x10^3/uL (4.0-10.5)
[2022-07-20 12:54] LABS: ALBUMIN 4.5 g/dL (3.5-5.0); ANION GAP 15.7 MEQ/L (5-15); BILIRUBIN,TOTAL 0.7 mg/dL (0.2-1.3); Calcium 9.6 mg/dL (8.4-10.2); Creatinine 1 1.06 mg/dL (0.52-1.04); EST GLOMERULAR FILTRATION RATE 59.9 ML/MIN; Potassium 3.9 mmol/L (3.5-5.1); Total Protein 7.6 g/dL (6.3-8.2)
[2022-07-20 14:06] VITALS: BP 88/66; PULSE 65; O2SAT 98
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
[2022-07-20 16:13] LABS: Epithelial Cells RARE /HPF (FEW); Mucus SLIGHT /HPF (NEGATIVE); WBC 0-2 /HPF (0-5)
[2022-07-20 16:14] LABS: Appearance CLEAR (CLEAR); Bilirubin NEGATIVE (NEGATIVE); Glucose 500 mg/dL (NEGATIVE); Ketones TRACE (NEGATIVE)
[2022-07-20 16:15] LABS: Nitrite NEGATIVE (NEGATIVE); Ph 6.5 (5-6); Protein,Urine Dip NEGATIVE (Negative); RBC NEGATIVE Ery/ul (0-5); Specific Gravity 1.015 (1.005-1.025); Urine Cultured Indicated? NO; Urobilinogen 0.2 mg/dL (0-1)
[2022-07-20 16:22] LABS: Dipstick done @ ? MAIN LAB
[2022-07-20 16:23] LABS: Amphetamine,Urine NEGATIVE (NEGATIVE); Barbiturate,Urine NEGATIVE (NEGATIVE); Benzodiazepine,Urine POSITIVE (NEGATIVE); Cocaine,Urine NEGATIVE (NEGATIVE); Methadone,Urine NEGATIVE (NEGATIVE); Opiate,Urine POSITIVE (NEGATIVE); THC,Urine NEGATIVE (NEGATIVE)
[2022-07-20 16:32] LABS: PCP,Urine NEGATIVE (NEGATIVE)
== END 2022-07-20 17:15 | disposition home or self-care (01) ==
LOC: ED 11:53
DX: F11.93 Opioid use, unspecified with withdrawal (principal); E78.5 Hyperlipidemia, unspecified; E11.9 Type 2 diabetes mellitus without complications; Z79.84 Long term (current) use of oral hypoglycemic drugs; Z79.899 Other long term (current) drug therapy
CPT/HCPCS: 36000; 36415; 80053; 80307; 81015; 82150; 83605; 83690; 85025; 96360; 96374; 96375; 99284; J1170; J2405

== ENCOUNTER 2022-08-05 12:55 | Emergency (ER) | payer OTHER ==
[2022-08-05 13:12] VITALS: O2SAT 99
[2022-08-05] MEDS ORDERED: Rocephin 1000 MG INJ IM ONE (13:23)
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
[2022-08-05] MEDS ORDERED: Rocephin 1000 MG INJ ONE (13:47)
[2022-08-05 13:57] VITALS: BP 144/107; PULSE 84
== END 2022-08-05 14:00 | disposition home or self-care (01) ==
LOC: ED 12:55
DX: T81.49XA Infection following a procedure, other surgical site, initial encounter (principal); Z79.899 Other long term (current) drug therapy
CPT/HCPCS: 96372; 99282; J0696

== ENCOUNTER 2022-09-29 17:13 | Emergency (ER) | payer OTHER ==
[2022-09-29] MEDS ORDERED: Sodium Chloride 0.9% 1000 ML 1,000 ML IV STA (17:30)
[2022-09-29] MEDS ORDERED: Zofran 4 MG/2 ML VIAL IV ONE (17:30)
[2022-09-29] MEDS ORDERED: Sodium Chloride 0.9% 1000 ML 1,000 ML ONE (17:37)
[2022-09-29] MEDS ORDERED: Zofran 4 MG/2 ML VIAL ONE (17:37)
[2022-09-29 17:46] LABS: Absolute Neutrophil Ct (ANC) 2.69 x10^3/uL (1.4-6.9); Basophil (Absolute #) 0.04 x10^3/uL (0-0.4); Eosinophil % 2.6 % (0.00-5.0); Eosinophil (Absolute #) 0.14 x10^3/uL (0-0.5); Hematocrit 40.8 % (35-47); Hemoglobin 13.3 g/dL (12.0-16.0); Lymphocytes % 38.6 % (24.0-44.0); Mean Cell Volume 94.9 fL (78-100); Mean Corpuscular Hemoglobin 30.9 pg (26-32); Mean Corpuscular Hgb Concent. 32.6 g/dL (32-36); Monocyte (Absolute #) 0.46 x10^3/uL (0.0-1.3); Monocytes % 8.5 % (0.0-12.0); Neutrophil % 49.4 % (36.0-66.0); Platelet Count 234 x10^3/uL (150-450); Red Cell Distribution Width 12.9 % (11.5-14.0); White Blood Count 5.4 x10^3/uL (4.0-10.5)
[2022-09-29 18:01] LABS: Appearance CLEAR (CLEAR); Bilirubin NEGATIVE (NEGATIVE); Dipstick done @ ? MAIN LAB; Glucose >=1000 mg/dL (NEGATIVE); Ketones NEGATIVE (NEGATIVE); Nitrite NEGATIVE (NEGATIVE); Protein,Urine Dip NEGATIVE (Negative); RBC NEGATIVE Ery/ul (0-5); Specific Gravity 1.025 (1.005-1.025); Urobilinogen 0.2 mg/dL (0-1)
[2022-09-29 18:02] LABS: ALKALINE PHOSPHATASE 110 U/L (38-126); ANION GAP 9.4 MEQ/L (5-15); BLOOD UREA NITROGEN 15 mg/dL (7-17); CHLORIDE 103 mmol/L (98-107); Calcium 8.6 mg/dL (8.4-10.2); Carbon Dioxide 29 mmol/L (22-30); EST GLOMERULAR FILTRATION RATE > 60.0 ML/MIN; Glucose 93 mg/dL (74-106); LIPASE 281 U/L (23-300); Potassium 3.7 mmol/L (3.5-5.1); SGOT/AST 25 U/L (14-36); SGPT/ALT 22 U/L (0-35); SODIUM 138 mmol/L (137-145); Total Protein 6.8 g/dL (6.3-8.2)
[2022-09-29 18:03] LABS: Bacteria NONE SEEN /HPF (NEGATIVE); Epithelial Cells RARE /HPF (FEW); Mucus SLIGHT /HPF (NEGATIVE); RBC 0-2 /HPF (0-2); Urine Cultured Indicated? NO; WBC 0-2 /HPF (0-5)
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
[2022-09-29 18:23] VITALS: PULSE 68
[2022-09-29 19:44] VITALS: BP 129/85
[2022-09-29 19:48] VITALS: O2SAT 100
--- NOTE | 2022-09-29 20:58 | XRAY ---
Indication: Right upper quadrant pain. Multiple contiguous axial images obtained through the abdomen and pelvis without contrast. Comparison: May 30, 2022 Lung bases demonstrates minimal dependent atelectasis. No infiltrate or effusion. Heart not enlarged. Again partially visualized bilateral breast implants. Left abdomen pain pump again produces beam artifact. Noncontrasted stomach and bowel loops appear nonobstructed. There is now mild diffuse scatter colonic fecal debris throughout. Again appendectomy, cholecystectomy, and hysterectomy. Right kidney again demonstrates 2 nonobstructing punctate calculi. No free fluid/air. Remaining liver, pancreas, spleen, adrenal glands, kidneys, ureters, and bladder are unremarkable for noncontrast exam. Again minimal aortic calcifications without AAA. Osseous structures intact. Impression: 1. Again beam artifact from left abdomen pain pump. 2. New diffuse fecal stasis. 3. Stable nonobstructing right renal micro-calculi. Comment: Preliminary interpretation made by [facility]. No critical discrepancy.
== END 2022-09-29 19:55 | disposition home or self-care (01) ==
LOC: ED 17:13
DX: K52.9 Noninfective gastroenteritis and colitis, unspecified (principal); R10.33 Periumbilical pain; R10.11 Right upper quadrant pain; R11.0 Nausea; E78.5 Hyperlipidemia, unspecified; E11.9 Type 2 diabetes mellitus without complications; Z79.891 Long term (current) use of opiate analgesic; Z79.85 Long-term (current) use of injectable non-insulin antidiabetic drugs; Z79.899 Other long term (current) drug therapy
CPT/HCPCS: 36000; 36415; 74176; 80053; 81015; 83605; 83690; 85025; 96374; 99284; J2405

== ENCOUNTER 2023-02-03 17:16 | Emergency (ER) | payer BC, OTHER ==
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
[2023-02-03 19:37] VITALS: BP 113/77; PULSE 71
[2023-02-04 07:34] VITALS: O2SAT 99
== END 2023-02-03 19:40 | disposition home or self-care (01) ==
LOC: ED 17:16
DX: R07.89 Other chest pain (principal); E78.5 Hyperlipidemia, unspecified; E11.9 Type 2 diabetes mellitus without complications; Z79.891 Long term (current) use of opiate analgesic; Z79.84 Long term (current) use of oral hypoglycemic drugs; Z79.85 Long-term (current) use of injectable non-insulin antidiabetic drugs; Z79.899 Other long term (current) drug therapy; Z86.16 Personal history of COVID-19
CPT/HCPCS: 99281

== ENCOUNTER 2023-05-15 12:26 | Emergency (ER) | payer OTHER ==
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
[2023-05-15] MEDS ORDERED: D50W 50 ml Abboject IV ONE ×2 (12:40→12:58)
[2023-05-15 12:53] VITALS: TEMP 98.4
[2023-05-15] MEDS ORDERED: Dextrose 5%-NS IV Solution 1000 ML 1,000 ML IV ONE (12:58)
[2023-05-15] MEDS: DEXTROSE 5%-NORMAL SALINE 500 ML 500 ML IV SCH ×2 (12:59→13:02)
[2023-05-15] MEDS ORDERED: Dextrose 5%/Water IV Soln. 500 ML 500 ML IV SCH (13:00)
[2023-05-15 13:05] LABS: Absolute Neutrophil Ct (ANC) 3.36 x10^3/uL (1.4-6.9); BASOPHIL % 0.6 % (0.0-0.4); Basophil (Absolute #) 0.04 x10^3/uL (0-0.4); Eosinophil % 0.8 % (0.00-5.0); Eosinophil (Absolute #) 0.05 x10^3/uL (0-0.5); Hematocrit 42.9 % (35-47); Hemoglobin 13.7 g/dL (12.0-16.0); IMMATURE GRAN # 0.02 x10^3u/L (0.00-0.03); IMMATURE GRAN % 0.3 % (0.00-0.4); Lymphocyte (Absolute #) 2.42 x10^3/uL (1.0-4.6); Lymphocytes % 36.9 % (24.0-44.0); Mean Cell Volume 94.7 fL (78-100); Mean Corpuscular Hemoglobin 30.2 pg (26-32); Mean Corpuscular Hgb Concent. 31.9 g/dL (32-36); Mean Platelet Volume 9.6 fL (7.5-11.0); Monocyte (Absolute #) 0.66 x10^3/uL (0.0-1.3); Monocytes % 10.1 % (0.0-12.0); Neutrophil % 51.3 % (36.0-66.0); Platelet Count 265 x10^3/uL (150-450); Red Blood Count 4.53 x10^6/uL (4.1-5.4); Red Cell Distribution Width 12.5 % (11.5-14.0); White Blood Count 6.6 x10^3/uL (4.0-10.5)
[2023-05-15 13:16] LABS: ALBUMIN 4.1 g/dL (3.5-5.0); ANION GAP 12.6 MEQ/L (5-15); BILIRUBIN,TOTAL 0.5 mg/dL (0.2-1.3); Calcium 8.5 mg/dL (8.4-10.2); Creatinine 1 1.24 mg/dL (0.52-1.04); EST GLOMERULAR FILTRATION RATE 49.9 ML/MIN; Potassium 3.9 mmol/L (3.5-5.1); Total Protein 7.1 g/dL (6.3-8.2)
[2023-05-15 13:23] LABS: AMYLASE 60 U/L (30-110); LIPASE 181 U/L (23-300)
[2023-05-15 13:52] VITALS: PULSE 76
[2023-05-15 14:13] LABS: ADD URINE CULTURE? NO (NO); Appearance Clear (Clear); Bacteria Rare /HPF (None Seen); Bilirubin Negative (Negative); Blood Negative (Negative); Epithelial Cells Rare /HPF (None Seen); Glucose, Urine >=1000 mg/dL (Negative); Hyaline Casts NONE SEEN /LPF (0-2); Ketones Negative (Negative); Leukocyte Esterase Negative (Negative); Nitrite Negative (Negative); Protein,Urine Dip Trace (Negative); RBC 0-2 /HPF (0-5); Specific Gravity >=1.030 (1.005-1.030); Urobilinogen 0.2 mg/dL (0.2)
[2023-05-15 14:28] VITALS: BP 143/88; RESP 18; O2SAT 100
== END 2023-05-15 14:38 | disposition home or self-care (01) ==
LOC: ED 12:26
DX: E11.649 Type 2 diabetes mellitus with hypoglycemia without coma (principal); R53.1 Weakness; E78.5 Hyperlipidemia, unspecified; Z79.84 Long term (current) use of oral hypoglycemic drugs; Z79.85 Long-term (current) use of injectable non-insulin antidiabetic drugs; Z79.899 Other long term (current) drug therapy; Z86.16 Personal history of COVID-19
CPT/HCPCS: 36000; 36415; 80053; 81001; 82150; 82947; 83605; 83690; 85025; 93041; 94760; 96374; 99284

== ENCOUNTER 2023-06-20 13:15 | Emergency (ER) | payer BC, OTHER ==
[2023-06-20 13:21] VITALS: TEMP 97.5
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
[2023-06-20] MEDS ORDERED: Sodium Chloride 0.9% 1000 ML 1,000 ML IV SCH (13:45)
[2023-06-20] MEDS ORDERED: Sodium Chloride 0.9% 1000 ML 1,000 ML ONE (13:49)
[2023-06-20 13:51] LABS: Absolute Neutrophil Ct (ANC) 10.12 x10^3/uL (1.4-6.9); BASOPHIL % 0.2 % (0.0-0.4); Basophil (Absolute #) 0.02 x10^3/uL (0-0.4); Eosinophil (Absolute #) 0 x10^3/uL (0-0.5); Hematocrit 37.7 % (35-47); Hemoglobin 12.7 g/dL (12.0-16.0); IMMATURE GRAN # 0.06 x10^3u/L (0.00-0.03); IMMATURE GRAN % 0.5 % (0.00-0.4); Lymphocyte (Absolute #) 1.24 x10^3/uL (1.0-4.6); Lymphocytes % 10.5 % (24.0-44.0); Mean Cell Volume 92.2 fL (78-100); Mean Corpuscular Hemoglobin 31.1 pg (26-32); Mean Corpuscular Hgb Concent. 33.7 g/dL (32-36); Mean Platelet Volume 9.8 fL (7.5-11.0); Monocyte (Absolute #) 0.41 x10^3/uL (0.0-1.3); Monocytes % 3.5 % (0.0-12.0); Neutrophil % 85.3 % (36.0-66.0); Platelet Count 245 x10^3/uL (150-450); Red Blood Count 4.09 x10^6/uL (4.1-5.4); Red Cell Distribution Width 12.5 % (11.5-14.0); White Blood Count 11.9 x10^3/uL (4.0-10.5)
[2023-06-20 14:08] LABS: ALBUMIN 4.2 g/dL (3.5-5.0); ALKALINE PHOSPHATASE 94 U/L (38-126); BLOOD UREA NITROGEN 16 mg/dL (7-17); CHLORIDE 106 mmol/L (98-107); Calcium 8.8 mg/dL (8.4-10.2); Carbon Dioxide 24 mmol/L (22-30); Creatinine 1 0.82 mg/dL (0.52-1.04); EST GLOMERULAR FILTRATION RATE > 60.0 ML/MIN; Glucose 149 mg/dL (74-106); NT PRO BNPII 301 pg/mL (<300); Potassium 3.7 mmol/L (3.5-5.1); SGOT/AST 29 U/L (14-36); SGPT/ALT 28 U/L (0-35); SODIUM 140 mmol/L (137-145); Total Protein 6.8 g/dL (6.3-8.2)
[2023-06-20 15:09] LABS: INFLUENZA A NEGATIVE (NEGATIVE); INFLUENZA B NEGATIVE (NEGATIVE); RESPIRATORY SYNCTIAL VIRUS NEGATIVE (NEGATIVE); SARS-CoV-2 Xpert Express NEGATIVE (NEGATIVE)
[2023-06-20] MEDS ORDERED: ROCEPHIN 1 Gm-D5w 50 ml Bag** 1 G/50 ML IVPB IV STA (15:18)
[2023-06-20] MEDS ORDERED: ROCEPHIN 1 Gm-D5w 50 ml Bag** 1 G/50 ML IVPB IV ONE (15:21)
[2023-06-20 15:23] VITALS: PULSE 78
--- NOTE | 2023-06-20 16:01 | XRAY ---
Indication: Right chest pain. Comparison: August 02, 2021 Portable chest again demonstrates normal heart, lungs, and bony thorax.
[2023-06-20] MEDS ORDERED: HYDROCODONE-ACETAMIN 2.5-108/5 ML SOLUTION PO STA (16:07)
[2023-06-20] MEDS ORDERED: HYDROCODONE-ACETAMIN 2.5-108/5 ML SOLUTION ONE (16:25)
[2023-06-20 16:30] VITALS: BP 107/76; RESP 18; O2SAT 98
== END 2023-06-20 16:39 | disposition home or self-care (01) ==
LOC: ED 13:15
DX: J06.9 Acute upper respiratory infection, unspecified (principal); R07.9 Chest pain, unspecified; R05.9 Cough, unspecified; E78.5 Hyperlipidemia, unspecified; E11.9 Type 2 diabetes mellitus without complications; Z79.891 Long term (current) use of opiate analgesic; Z79.52 Long term (current) use of systemic steroids; Z79.85 Long-term (current) use of injectable non-insulin antidiabetic drugs; Z79.899 Other long term (current) drug therapy
CPT/HCPCS: 0241U; 36000; 36415; 71045; 80053; 83880; 84484; 85025; 86308; 87040; 93005; 93041; 94760; 96365; 99284; J0696; A9270-GY

== ENCOUNTER 2024-02-16 02:11 | Emergency (ER) | payer OTHER ==
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
[2024-02-16 02:29] VITALS: RESP 18; TEMP 97.4
[2024-02-16] MEDS: Tylenol #3 Tablet PO ONE (02:41)
[2024-02-16] MEDS ORDERED: NORCO 5/325 MG ONE (02:43)
[2024-02-16] MEDS ORDERED: solu-MEDROL ONE (02:43)
[2024-02-16] MEDS ORDERED: Sterile H2O 10 ml IJ ONE (02:43)
[2024-02-16] MEDS ORDERED: Norflex 60 MG/2 ML ONE (02:43)
[2024-02-16] MEDS: NORCO 5/325 MG PO ONE (02:51)
[2024-02-16] MEDS: solu-MEDROL 125 MG, Sterile H2O 10 ml 2 ML IM ONE (02:51)
[2024-02-16] MEDS: Norflex 60 MG/2 ML IM ONE (02:51)
[2024-02-16 03:05] VITALS: BP 110/62; PULSE 68; O2SAT 96
== END 2024-02-16 03:05 | disposition home or self-care (01) ==
LOC: ED 02:11
DX: G89.29 Other chronic pain (principal); M54.50 Low back pain, unspecified; E78.5 Hyperlipidemia, unspecified; E11.9 Type 2 diabetes mellitus without complications; Z79.52 Long term (current) use of systemic steroids; Z79.85 Long-term (current) use of injectable non-insulin antidiabetic drugs; Z79.84 Long term (current) use of oral hypoglycemic drugs; Z79.899 Other long term (current) drug therapy
CPT/HCPCS: 96372; 99283; J2360; J2919; A9270-GY

== ENCOUNTER 2024-04-27 15:06 | Emergency (ER) | payer OTHER ==
[2024-04-27 16:02] VITALS: RESP 16; TEMP 98
[2024-04-27 16:33] LABS: Absolute Neutrophil Ct (ANC) 3.68 x10^3/uL (1.56-6.13); BASOPHIL % 0.5 % (0.1-1.2); Basophil (Absolute #) 0.03 x10^3/uL (0.01-0.08); Eosinophil (Absolute #) 0.06 x10^3/uL (0.04-0.36); Hematocrit 39.9 % (34.1-44.9); Hemoglobin 13.4 g/dL (11.2-15.7); IMMATURE GRAN # 0.03 x10^3u/L (0.001-0.031); IMMATURE GRAN % 0.5 % (0.001-0.429); Lymphocytes % 30.9 % (19.3-51.7); Mean Cell Volume 91.3 fL (79.4-94.8); Mean Corpuscular Hemoglobin 30.7 pg (25.6-32.2); Mean Corpuscular Hgb Concent. 33.6 g/dL (32.2-35.5); Mean Platelet Volume 10.5 fL (9.4-12.3); Monocyte (Absolute #) 0.45 x10^3/uL (0.24-0.86); Monocytes % 7.3 % (4.7-12.5); Neutrophil % 59.8 % (34.0-71.1); Platelet Count 256 x10^3/uL (182-369); Red Blood Count 4.37 x10^6/uL (3.93-5.22); White Blood Count 6.2 x10^3/uL (3.98-10.04)
[2024-04-27] MEDS ORDERED: Hydromorphone 1 mg/ml Injection ONE (16:38)
[2024-04-27] MEDS ORDERED: Zofran 4 MG/2 ML VIAL ONE (16:38)
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
[2024-04-27] MEDS ORDERED: Sodium Chloride 0.9% 1000 ML 1,000 ML ONE (16:39)
[2024-04-27] MEDS: Zofran 4 MG/2 ML VIAL IV ONE (16:42)
[2024-04-27] MEDS: Sodium Chloride 0.9% 1000 ML 1,000 ML IV STA (16:42)
[2024-04-27] MEDS: Hydromorphone 1 mg/ml Injection IV ONE (16:42)
[2024-04-27 16:43] LABS: Appearance Clear (Clear); Bacteria None Seen /HPF (None Seen); Bilirubin Negative (Negative); Blood Negative (Negative); Epithelial Cells None Seen /HPF (None Seen); Glucose, Urine Negative (Negative); Hyaline Casts NONE SEEN /LPF (0-2); Ketones Negative (Negative); Leukocyte Esterase Negative (Negative); Nitrite Negative (Negative); Protein,Urine Dip Negative (Negative); RBC 0-2 /HPF (0-5); Specific Gravity <=1.005 (1.005-1.030); Urobilinogen 0.2 mg/dL (0.2); WBC 0-2 /HPF (0-5)
[2024-04-27 16:44] LABS: ADD URINE CULTURE? NO (NO)
[2024-04-27 16:46] LABS: ALBUMIN 4.2 g/dL (3.5-5.0); ANION GAP 13.8 MEQ/L (5-15); BILIRUBIN,TOTAL 0.6 mg/dL (0.2-1.3); Calcium 9.4 mg/dL (8.4-10.2); Creatinine 1 1.15 mg/dL (0.52-1.04); EST GLOMERULAR FILTRATION RATE 59.9 ML/MIN; Potassium 3.9 mmol/L (3.5-5.1)
--- NOTE | 2024-04-27 16:51 | XRAY ---
Indication: Right upper quadrant pain. Multiple contiguous axial images obtained through the abdomen and pelvis without contrast. Comparison: September 29, 2022 Lung bases clear. Heart not enlarged. Again partially visualized bilateral breast implants. Stomach is now distended with food/fluid. Noncontrasted stomach and bowel loops appear nonobstructed. Again mild diffuse scattered colonic fecal debris, less than before. Again 2 nonobstructed right renal micro-calculi, appendectomy, cholecystectomy, and hysterectomy. No free fluid/air. Remaining liver, pancreas, spleen, adrenal glands, kidneys, ureters, and bladder are unremarkable for noncontrast exam. Again minimal aortic calcifications without AAA. Osseous structures intact. Impression: Again mild diffuse fecal stasis, nonobstructing right renal micro-calculi, and arteriosclerotic disease. No new/acute findings on this noncontrast exam.
[2024-04-27] MEDS: PROTONIX 40 MG IV IV ONE (17:33)
[2024-04-27] MEDS ORDERED: PROTONIX 40 MG IV IV ONE (17:33)
[2024-04-27 17:39] VITALS: BP 106/75; PULSE 76; O2SAT 96
== END 2024-04-27 17:43 | disposition home or self-care (01) ==
LOC: ED 15:06
DX: G89.29 Other chronic pain (principal); R10.11 Right upper quadrant pain; R11.2 Nausea with vomiting, unspecified; E78.5 Hyperlipidemia, unspecified; E11.9 Type 2 diabetes mellitus without complications; Z79.84 Long term (current) use of oral hypoglycemic drugs; Z79.899 Other long term (current) drug therapy
CPT/HCPCS: 36000; 36415; 74176; 80053; 81001; 82150; 83690; 85025; 96360; 96374; 96375; 99284; J1170; J2405

== ENCOUNTER 2024-06-10 06:02 | Day surgery (SDC) | payer OTHER ==
[2024-06-10] MEDS ORDERED: Sodium Chloride 0.9% 100 ML ONE (06:48)
[2024-06-10] MEDS ORDERED: Reglan 10 MG/2 ML ONE (06:50)
[2024-06-10] MEDS ORDERED: Pepcid 20 MG VIAL IV ONE (06:50)
[2024-06-10] MEDS ORDERED: Zofran 4 MG/2 ML VIAL ONE (06:50)
[2024-06-10] MEDS: Lactated Ringers 1,000 ML IV SCH (06:53)
[2024-06-10] MEDS ORDERED: PROTONIX 40 MG IV IV ONE (06:54)
[2024-06-10 06:58] VITALS: RESP 18
[2024-06-10] MEDS: SODIUM CHLORIDE 0.9% IV ONE (07:02)
[2024-06-10] MEDS: Zofran 4 MG/2 ML VIAL IV STA (07:02)
[2024-06-10] MEDS: PEPCID IV ONE (07:02)
[2024-06-10] MEDS: Reglan 10 MG/2 ML IV ONE (07:02)
[2024-06-10] MEDS ORDERED: Versed 2 MG/2 ML Injection ONE (08:11)
[2024-06-10] MEDS ORDERED: DIPRIVAN 200 MG/20 ML IV ONE (08:11)
[2024-06-10] MEDS ORDERED: Xylocaine-Mpf 2% 5 Ml Vial ONE (08:37)
[2024-06-10 09:26] VITALS: TEMP 97.1; O2SAT 94
[2024-06-10 09:36] VITALS: BP 107/60; PULSE 67
--- NOTE | 2024-06-10 17:38 | OP ---
SURGERY DATE/TIME: 06/10/2024 6662 - 0631 PREOPERATIVE DIAGNOSES: 1) Chronic gastroesophageal reflux disease. 2) Gastroparesis. POSTOPERATIVE DIAGNOSIS: Mild gastritis. PROCEDURE: Esophagogastroduodenoscopy. SURGEON: Enoch West MD ANESTHESIA: MAC by Gwyn Lopes CRNA. ESTIMATED BLOOD LOSS: Minimal. SPECIMENS: There are 2 cold forceps biopsies from the gastric antrum sent for H pylori testing. DESCRIPTION OF PROCEDURE AND FINDINGS: After informed written consent was obtained, the patient was taken to the endoscopy suite. She was placed in the left lateral decubitus position and a bite block was inserted. Anesthesia was titrated to the desired level of consciousness, and then endoscope was inserted in the posterior oropharynx. Under direct visualization, the esophagus was easily traversed and had a normal mucosal appearance, free of any lesions or defects. Upon entry into the stomach, there was normal rugae of gastric mucosa with no obvious areas of bleeding. There was some mild gastritis-type changes in the gastric antrum with no focal ulceration or bleeding present. Pylorus was traversed, and the duodenum had a normal mucosal appearance. Two cold forceps biopsies were taken from the gastric antrum for H pylori testing with minimal blood loss. The remainder of the exam was unremarkable. Again, the GE junction and esophageal mucosa all had a normal mucosal appearance upon withdrawal. The scope was removed, and the patient was transferred to the recovery room in good condition. She will follow up in 1 week for pathology results.
== END 2024-06-10 09:37 | disposition home or self-care (01) ==
LOC: SDC 06:02
PROVIDERS: ATTEND Family Medicine
DX: K29.70 Gastritis, unspecified, without bleeding (principal); K21.9 Gastro-esophageal reflux disease without esophagitis; E11.43 Type 2 diabetes mellitus with diabetic autonomic (poly)neuropathy; K31.84 Gastroparesis
CPT/HCPCS: 82947; J2250; J2405; J2704

== ENCOUNTER 2024-08-22 21:05 | Emergency (ER) | payer OTHER ==
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
[2024-08-22 21:54] VITALS: TEMP 97.1
[2024-08-22 22:14] LABS: Appearance Clear (Clear); Bacteria Rare /HPF (None Seen); Bilirubin Negative (Negative); Blood Negative (Negative); Epithelial Cells Rare /HPF (None Seen); Glucose, Urine >=1000 mg/dL (Negative); Hyaline Casts NONE SEEN /LPF (0-2); Ketones Negative (Negative); Leukocyte Esterase Negative (Negative); Nitrite Negative (Negative); Protein,Urine Dip Negative (Negative); RBC 0-2 /HPF (0-5); Specific Gravity >=1.030 (1.005-1.030); Urobilinogen 0.2 mg/dL (0.2); WBC 0-2 /HPF (0-5)
[2024-08-22 22:19] LABS: Absolute Neutrophil Ct (ANC) 3.34 x10^3/uL (1.56-6.13); BASOPHIL % 0.7 % (0.1-1.2); Basophil (Absolute #) 0.04 x10^3/uL (0.01-0.08); Eosinophil % 1.2 % (0.7-5.8); Eosinophil (Absolute #) 0.07 x10^3/uL (0.04-0.36); Hematocrit 41.6 % (34.1-44.9); Hemoglobin 13.8 g/dL (11.2-15.7); IMMATURE GRAN # 0.02 x10^3u/L (0.001-0.031); IMMATURE GRAN % 0.3 % (0.001-0.429); Lymphocyte (Absolute #) 2.06 x10^3/uL (1.18-3.74); Lymphocytes % 34.4 % (19.3-51.7); Mean Cell Volume 93.3 fL (79.4-94.8); Mean Corpuscular Hemoglobin 30.9 pg (25.6-32.2); Mean Corpuscular Hgb Concent. 33.2 g/dL (32.2-35.5); Mean Platelet Volume 9.8 fL (9.4-12.3); Monocyte (Absolute #) 0.46 x10^3/uL (0.24-0.86); Monocytes % 7.7 % (4.7-12.5); Neutrophil % 55.7 % (34.0-71.1); Platelet Count 245 x10^3/uL (182-369); Red Blood Count 4.46 x10^6/uL (3.93-5.22); Red Cell Distribution Width 11.9 % (11.7-14.4)
[2024-08-22 22:36] LABS: ALBUMIN 4.3 g/dL (3.5-5.0); BILIRUBIN,TOTAL 0.3 mg/dL (0.2-1.3); Calcium 9.5 mg/dL (8.4-10.2); Creatinine 1 1.09 mg/dL (0.52-1.04); EST GLOMERULAR FILTRATION RATE 63.5 ML/MIN
[2024-08-22] MEDS ORDERED: Hydromorphone 1 mg/ml Injection ONE (22:42)
[2024-08-22] MEDS ORDERED: Zofran 4 MG/2 ML VIAL ONE (22:42)
[2024-08-22] MEDS: Zofran 4 MG/2 ML VIAL IV ONE (22:43)
[2024-08-22] MEDS ORDERED: Sodium Chloride 0.9% 500 ML 500 ML IV ONE (22:43)
[2024-08-22] MEDS: Hydromorphone 1 mg/ml Injection IV ONE (22:44)
[2024-08-22] MEDS: Sodium Chloride 0.9% 500 ML 500 ML IV ONE (22:44)
--- NOTE | 2024-08-22 22:46 | XRAY ---
CLINICAL HISTORY: Abdominal pain; vomiting COMPARISON: 27 April 2024 15:29:15 SIGNALS OFFICER TECHNIQUE: Contiguous axial images were obtained from the level of the diaphragm to the pubic symphysis without intravenous or oral contrast. Coronal and sagittal reconstructions were likewise performed and indicated to increase the sensitivity for detecting clinically relevant pathology. CT scan was performed according to ALARA (as low as reasonably achievable). FINDINGS: The visualized lung bases are clear. Evaluation of the abdominal and pelvic visceral organs is limited without intravenous contrast. The unenhanced liver, spleen, pancreas, and adrenal glands are grossly unremarkable. Gallbladder is not seen, likely post-cholecystectomy status. Stable, non-obstructive right renal small calcifications - concretions, measuring up to 4 mm. The kidneys are otherwise normal in size and attenuation. There is no hydronephrosis or perinephric stranding. The ureters are normal in caliber. No adenopathy or fluid collections are seen. No evidence of focal or diffuse bowel wall thickening or evidence of bowel obstruction is seen. There is colonic diverticulosis without acute diverticulitis. Appendix is not seen, likely post appendicectomy status. The aorta is normal in caliber. The urinary bladder is normal in contour. Pelvic viscera are grossly unremarkable. No aggressive appearing osseous lesions are identified. IMPRESSION: 1. Stable, non-obstructive right renal small calcifications - concretions. 2. Colonic diverticulosis without acute diverticulitis. 3. No significant interval changes seen since prior study. Electronically Signed by: You Castro MD. (08/22/2024 22:41:59 EDT)
[2024-08-22 23:21] VITALS: PULSE 67; RESP 16; O2SAT 95
[2024-08-23 00:06] VITALS: BP 114/75
== END 2024-08-23 00:05 | disposition home or self-care (01) ==
LOC: ED 21:05
DX: G89.29 Other chronic pain (principal); R10.84 Generalized abdominal pain; R11.0 Nausea; E78.5 Hyperlipidemia, unspecified; E11.43 Type 2 diabetes mellitus with diabetic autonomic (poly)neuropathy; K31.84 Gastroparesis; Z79.84 Long term (current) use of oral hypoglycemic drugs; Z79.85 Long-term (current) use of injectable non-insulin antidiabetic drugs; Z79.899 Other long term (current) drug therapy
CPT/HCPCS: 36000; 36415; 74176; 80053; 81001; 82150; 83690; 85025; 96374; 96375; 99284; J1171; J2405

== ENCOUNTER 2024-12-16 17:11 | Emergency (ER) | payer OTHER ==
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
[2024-12-16 17:34] VITALS: TEMP 97.7; O2SAT 98
[2024-12-16 18:34] VITALS: BP 123/57; PULSE 62; RESP 17
--- NOTE | 2024-12-16 21:40 | XRAY ---
Indication: Pain G-tube malfunction. Comparison: October 08, 2019 KUB demonstrates new PEG tube with catheter tip right of midline presumed in distal stomach. Elsewhere new moderate diffuse colonic fecal stasis. Solid organs and osseous structures unremarkable.
== END 2024-12-16 19:00 | disposition home or self-care (01) ==
LOC: ED 17:11
DX: K94.23 Gastrostomy malfunction (principal); Z79.899 Other long term (current) drug therapy
CPT/HCPCS: 74018; 99282; 99283

== ENCOUNTER 2025-07-09 13:55 | Emergency (ER) | payer OTHER ==
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
[2025-07-09] MEDS ORDERED: Zofran 4 MG/2 ML VIAL ONE (14:22)
[2025-07-09] MEDS ORDERED: Hydromorphone 1 mg/ml Injection ONE (14:23)
[2025-07-09] MEDS ORDERED: BABY ASPIRIN 81 MG CHEW ONE (14:23)
[2025-07-09 14:24] LABS: BASOPHIL % 0.5 % (0.1-1.2); Basophil (Absolute #) 0.03 x10^3/uL (0.01-0.08); Eosinophil (Absolute #) 0.11 x10^3/uL (0.04-0.36); Hematocrit 40.2 % (34.1-44.9); Hemoglobin 13.6 g/dL (11.2-15.7); IMMATURE GRAN # 0.02 x10^3u/L (0.001-0.031); IMMATURE GRAN % 0.3 % (0.001-0.429); Lymphocyte (Absolute #) 2.34 x10^3/uL (1.18-3.74); Mean Corpuscular Hemoglobin 31.1 pg (25.6-32.2); Mean Corpuscular Hgb Concent. 33.8 g/dL (32.2-35.5); Monocyte (Absolute #) 0.52 x10^3/uL (0.24-0.86); NUCLEATED RBC # 0.00 x10^3u/L (0.00-0.012); NUCLEATED RBC % 0.0 % (0.00-0.2); Platelet Count 260 x10^3/uL (182-369); Red Blood Count 4.37 x10^6/uL (3.93-5.22); White Blood Count 6.4 x10^3/uL (3.98-10.04)
[2025-07-09 14:25] VITALS: TEMP 99.1
[2025-07-09] MEDS: BABY ASPIRIN 81 MG CHEW PO ONE (14:25)
[2025-07-09] MEDS: Zofran 4 MG/2 ML VIAL IV ONE (14:26)
[2025-07-09] MEDS: Hydromorphone 1 mg/ml Injection IV ONE (14:28)
[2025-07-09 14:49] LABS: Calcium 9.1 mg/dL (8.4-10.2); Carbon Dioxide 26 mmol/L (22-30); Creatinine 1 1.14 mg/dL (0.52-1.04); EST GLOMERULAR FILTRATION RATE 59.8 ML/MIN; Glucose 95 mg/dL (74-106); Potassium 3.9 mmol/L (3.5-5.1); SGOT/AST 30 U/L (14-36); SGPT/ALT 26 U/L (0-35); TROPONIN < 0.012 ng/mL (0.000-0.033); Total Protein 7.3 g/dL (6.3-8.2)
[2025-07-09] MEDS ORDERED: Inapsine 5 MG/2 ML ONE (15:43)
[2025-07-09] MEDS: Inapsine 5 MG/2 ML IV ONE (15:44)
[2025-07-09 16:26] VITALS: RESP 14
--- NOTE | 2025-07-09 16:42 | XRAY ---
Indication: Migraine headache 11 days. Multiple continuous axial images obtained through the head without contrast. Comparison: September 15, 2021 Ventriclosulcal pattern appears symmetric. Stable remote lacunar infarct left basal ganglia. No acute intracranial hemorrhage, abnormal extra-axial fluid collection, or mass effect. Fourth ventricle is midline without hydrocephalus. Calix-white matter differentiation preserved. Bony calvarium intact. Visualized paranasal sinuses and mastoid air cells are clear. Impression: Stable remote lacunar infarct left basal ganglia. Continued negative CT head without contrast exam.
[2025-07-09 17:14] VITALS: BP 94/68; PULSE 66; O2SAT 96
== END 2025-07-09 17:22 | disposition home or self-care (01) ==
LOC: ED 13:55
DX: G43.909 Migraine, unspecified, not intractable, without status migrainosus (principal); R07.9 Chest pain, unspecified; E11.43 Type 2 diabetes mellitus with diabetic autonomic (poly)neuropathy; K31.84 Gastroparesis; Z79.85 Long-term (current) use of injectable non-insulin antidiabetic drugs; Z79.899 Other long term (current) drug therapy

== ENCOUNTER 2025-09-28 20:42 | Emergency (ER) | payer OTHER ==
[2025-09-28 20:57] VITALS: TEMP 97.5
[2025-09-28] MEDS ORDERED: Compazine 10 MG/2 ML ONE (21:10)
[2025-09-28] MEDS ORDERED: TORAdol 30 mg Injection ONE (21:10)
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
[2025-09-28] MEDS: Compazine 10 MG/2 ML IV ONE (21:12)
[2025-09-28] MEDS: TORAdol 30 mg Injection IV ONE (21:12)
[2025-09-28 21:14] LABS: BASOPHIL % 0.7 % (0.1-1.2); Basophil (Absolute #) 0.04 x10^3/uL (0.01-0.08); Eosinophil (Absolute #) 0.16 x10^3/uL (0.04-0.36); Hematocrit 39.8 % (34.1-44.9); Hemoglobin 13.2 g/dL (11.2-15.7); IMMATURE GRAN # 0.02 x10^3u/L (0.001-0.031); IMMATURE GRAN % 0.3 % (0.001-0.429); Lymphocyte (Absolute #) 2.47 x10^3/uL (1.18-3.74); Mean Corpuscular Hemoglobin 30.8 pg (25.6-32.2); Mean Corpuscular Hgb Concent. 33.2 g/dL (32.2-35.5); Monocyte (Absolute #) 0.52 x10^3/uL (0.24-0.86); NUCLEATED RBC # 0.00 x10^3u/L (0.00-0.012); NUCLEATED RBC % 0.0 % (0.00-0.2); Platelet Count 262 x10^3/uL (182-369); Red Blood Count 4.29 x10^6/uL (3.93-5.22); White Blood Count 6.0 x10^3/uL (3.98-10.04)
[2025-09-28 21:21] LABS: Glucose, Urine Negative (Negative); Protein,Urine Dip Negative (Negative); RBC 0-2 /HPF (0-5)
[2025-09-28 21:29] LABS: Calcium 9.5 mg/dL (8.4-10.2); Carbon Dioxide 22.0 mmol/L (22-30); Creatinine 1 1.01 mg/dL (0.52-1.04); EST GLOMERULAR FILTRATION RATE 69.1 ML/MIN; Glucose 89.0 mg/dL (74-106); Potassium 3.9 mmol/L (3.5-5.1); SGOT/AST 31.0 U/L (14-36); SGPT/ALT 32.0 U/L (0-35); Total Protein 7.1 g/dL (6.3-8.2)
--- NOTE | 2025-09-28 21:55 | XRAY ---
Indication: Pain. Multiple contiguous axial images obtained through the abdomen and pelvis without contrast. Comparison: April 20, 2025 Lung bases remain clear. Heart not enlarged. Again peg tube in stomach lumen with distal tip in proximal jejunum. Noncontrasted stomach and bowel loops appear nonobstructed. Again nonobstructing right renal punctate calculus, appendectomy, cholecystectomy, and hysterectomy. No free fluid/air. Remaining liver, pancreas, spleen, adrenal glands, kidneys, ureters, and bladder are unremarkable for noncontrast exam. Again minimal aortic calcifications without AAA. Osseous structures intact. Impression: Again peg tube in Situ, nonobstructing right renal punctate calculus, and arteriosclerotic disease. No new/acute findings on this noncontrast exam.
[2025-09-28 22:06] VITALS: BP 127/59; PULSE 62; RESP 18
[2025-09-28 22:45] VITALS: O2SAT 99
== END 2025-09-28 22:51 | disposition home or self-care (01) ==
LOC: ED 20:42
DX: R10.9 Unspecified abdominal pain (principal); R11.2 Nausea with vomiting, unspecified; E11.9 Type 2 diabetes mellitus without complications; Z79.899 Other long term (current) drug therapy